=== PATIENT | female | born 1965 | race Caucasian/White ===

== ENCOUNTER 2016-04-16 15:20 | Emergency (ER) | payer MEDICARE ==
[2016-03-06 13:11] VITALS: BMI 62.9
[~2016-04-16 15:20] MED LIST: ACETAMINOPHEN325 MG PO; AMBIEN10 MG PO; AMBIEN5 MG PO; AUGMENTIN 875-11 TAB PO; BACTRIM DS TABL1 TAB PO; BROVANA15 MCG/2 M INH; DITROPAN X5 MG/BOTTL PO; IPRAT-ALBUT 0.5-3 ML INH; K-TAB10 MEQ PO; KLONOPIN1 MG PO; LASIX40 MG PO; MOBIC7.5 MG PO; MORPHINE SULFAT15 M4 PO; MYRBETRIQ; MYRBETRIQ50 MG PO; OXYBUTYNIN CHLOR5 MG PO; PERCOCET 5-3251 TAB PO; PHENERGAN25 M1 PO; PLAVIX75 MG PO; PREDNISONE20 MG PO; PRILOSEC20 MG PO; PROAIR HFA8.5 GM INH; PULMICORT0.25 MG/1 UPD; SEREVENT D50 MCG/DIS INH; SINGULAIR10 MG PO; THEOCHRON300 MG PO; TRAZODONE HCL150 MG PO; TRAZODONE HCL50 MG PO; VENTOLIN HFA18 GM INH; VIBRAMYCIN 100100 MG PO; XOPENEX HFA15 GM INH; ZOLOFT100 MG PO
[2016-04-16 16:58] LABS: BASOPHILS 0.2 % (0.0-2.0); EOSINOPHILS 3.8 % (0-7); HEMATOCRIT 37.4 % (36.0-48.0); HEMOGLOBIN 11.6 g/dL (12-16); IMMATURE GRANULOCYTES 0.3 % (0-5); LYMPHOCYTES 19.8 % (15-50); MCH 26.7 pg (26.0-34.0); MEAN PLATELET VOLUME 9.9 fL (7.4-10.4); MONOCYTES 6.1 % (2-11); NEUTROPHILS 69.8 % (40-80); RBC 4.35 10x6/uL (4.00-5.40); RDW 14.7 % (11.5-14.5); WBC 6.6 10x3/uL (4.8-10.8)
[2016-04-16 16:59] LABS: PLATELET COUNT 160 10x3/uL (130-400)
[2016-04-16 17:15] LABS: ALBUMIN 2.7 g/dL (3.4-5.0); ALKALINE PHOSPHATASE 79 U/L (46-116); ALT (SGPT) 25 U/L (10-68); BILIRUBIN - TOTAL 0.18 mg/dL (0.2-1.3); CALC OSMOLALITY 284 mosm/kg (275-300); CALCIUM 8.6 mg/dL (8.5-10.1); CARBON DIOXIDE 30.1 mmol/L (21.0-32.0); CHLORIDE - SERUM 108 mmol/L (98-107); CREATININE - SERUM 0.7 mg/dL (0.6-1.3); GLUCOSE 87 mg/dL (74-106); POTASSIUM - SERUM 4.4 mmol/L (3.5-5.1); PROTEIN - SERUM 5.8 g/dL (6.4-8.2); SODIUM 144 mmol/L (136-145); UREA NITROGEN 10 mg/dL (7-18); eGFR NON AFRICAN AMERICAN > 90 mL/min (90-120)
== END 2016-04-16 18:00 | disposition home or self-care (01) ==
LOC: D.ER 15:20
PROVIDERS: Emergency Medicine
DX: J45.901 Unspecified asthma with (acute) exacerbation (principal); J44.9 Chronic obstructive pulmonary disease, unspecified; Z86.73 Personal history of transient ischemic attack (TIA), and cerebral infarction without residual deficits; G25.81 Restless legs syndrome; F17.200 Nicotine dependence, unspecified, uncomplicated

== ENCOUNTER 2016-05-12 03:45 | Emergency (ER) | payer MEDICARE ==
[2016-03-06 13:11] VITALS: BMI 62.9
[2016-05-12 05:11] LABS: BASOPHILS 0.1 % (0.0-2.0); EOSINOPHILS 0.1 % (0-7); HEMATOCRIT 43.1 % (36.0-48.0); HEMOGLOBIN 13.3 g/dL (12-16); IMMATURE GRANULOCYTES 0.3 % (0-5); LYMPHOCYTES 12.5 % (15-50); MCH 26.7 pg (26.0-34.0); MCHC 30.9 g/dL (31.0-37.0); MCV 86.5 fL (80.0-100.0); MEAN PLATELET VOLUME 10.7 fL (7.4-10.4); MONOCYTES 2.9 % (2-11); NEUTROPHILS 84.1 % (40-80); RBC 4.98 10x6/uL (4.00-5.40); RDW 14.4 % (11.5-14.5); WBC 7.1 10x3/uL (4.8-10.8)
[2016-05-12 05:19] LABS: PLATELET COUNT 213 10x3/uL (130-400)
[2016-05-12 05:27] LABS: ALBUMIN 3.5 g/dL (3.4-5.0); ALKALINE PHOSPHATASE 101 U/L (46-116); ALT (SGPT) 28 U/L (10-68); CALC OSMOLALITY 286 mosm/kg (275-300); CALCIUM 8.6 mg/dL (8.5-10.1); CARBON DIOXIDE 28.8 mmol/L (21.0-32.0); CHLORIDE - SERUM 104 mmol/L (98-107); CREATININE - SERUM 0.8 mg/dL (0.6-1.3); POTASSIUM - SERUM 4.4 mmol/L (3.5-5.1); PROTEIN - SERUM 7.1 g/dL (6.4-8.2); SODIUM 143 mmol/L (136-145); UREA NITROGEN 13 mg/dL (7-18); eGFR NON AFRICAN AMERICAN 80 mL/min (90-120)
[2016-05-12 05:36] LABS: CREATINE KINASE 46 UL (21-215); MAGNESIUM - SERUM 1.9 mg/dL (1.8-2.4); PRO BNP 623 pg/mL (0-125); TROPONIN-I < 0.017 ng/mL (0.000-0.060)
[2016-05-12 05:37] LABS: GLUCOSE 136 mg/dL (74-106)
[2016-05-12] MEDS ORDERED: K-TAB10 MEQ PO (19:26)
[2016-05-12] MEDS ORDERED: MOBIC7.5 MG PO (19:31)
== END 2016-05-12 07:55 | disposition home or self-care (01) ==
LOC: D.ER 03:45
PROVIDERS: Emergency Medicine
DX: R06.00 Dyspnea, unspecified (principal); J45.901 Unspecified asthma with (acute) exacerbation; I50.9 Heart failure, unspecified; J18.9 Pneumonia, unspecified organism; J44.9 Chronic obstructive pulmonary disease, unspecified; Z86.73 Personal history of transient ischemic attack (TIA), and cerebral infarction without residual deficits

== ENCOUNTER 2016-05-12 19:11 | Inpatient (IN) | payer MEDICARE ==
[~2016-05-12] VITALS: Ht 162.6 cm; Wt 155.9 kg
[2016-05-12] MEDS ORDERED: K-TAB10 MEQ PO (19:26)
[2016-05-12] MEDS ORDERED: MOBIC7.5 MG PO (19:31)
[2016-05-12 20:00] VITALS: BP 144/84
--- NOTE | 2016-05-12 21:18 | NUR ---
20 GAUGE PIV SITED TO RIGHT UPPER CHEST BY STUNDENT NURSE WITH THE SUPERVISION OF Ciro STALLINGS RN.
--- NOTE | 2016-05-12 21:53 | NUR ---
ENTERED ROOM TO PLACE CHAUDHRY CATH, PT STATED THAT SHE WAS BUSY RIGHT NOW FEEDING HER SON AND ASKED IF WE COULD COME BACK LATER.
--- NOTE | 2016-05-12 22:49 | NUR ---
CHAUDHRY CATH PLACED USING STERILE TECHNIQUE, PT TOLERATED WELL, PT ASKING FOR OXYCODONE, INFORMED HER THAT I DONT HAVE AND ORDER FOR HER PAIN MEDS BUT WILL CALL AND SEEE IF I CAN THEM ORDERED.
[2016-05-13] VITALS: BP 159/90
--- NOTE | 2016-05-13 00:35 | NUR ---
SITTING UP IN WC AT BED SIDE, PT DENIES NEEDS, BED LOW, CL IN REACH.
[2016-05-13 04:09] VITALS: BP 159/90; BMI 63.8
--- NOTE | 2016-05-13 04:19 | NUR ---
PT SITTING UP IN BED NO DISTRESS OBSERVED IV STARTED IN RIGHT UPPER ARM 20G ONE STICK RESPERATIOSN EVEN AND UNLABORED ON ROOM AIR CALL LIGHT IN REACH SRX2 BED LOW AND LOCKED
[2016-05-13 07:58] VITALS: BP 119/69
--- NOTE | 2016-05-13 08:15 | NUR ---
PT UP IN WHEELCHAIR IN ROOM NO PROBLEMS WILL MONITER
--- NOTE | 2016-05-13 09:41 | NUR ---
UP IN W/C. FAMILY AT BS. CALL LIGHT IN REACH. WILL CONT. PLAN OF CARE.
[2016-05-13 12:18] VITALS: BP 149/85
--- NOTE | 2016-05-13 14:38 | NUR ---
RATIONALE FOR SCD'S EXPLAINED. REFUSING SCD'S AT THIS TIME.
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
[2016-05-13 16:16] VITALS: BP 129/80
--- NOTE | 2016-05-13 16:59 | NUR ---
PT UP IN WHEELCHAIR IN ROOM NO PROBLEMS CHILDREN IN ROOM WITH PT WILL MONITER
--- NOTE | 2016-05-13 19:30 | NUR ---
Received patient sitting at bedside having respiratory nebulizer treatment. Both sons in room with her. Is alert and oriented x 4. Denies any pain or discomfort at this time, does have infrequent dry harsh cough. Miller catheter draining well. Oxygen will be resumed @2L/min following Resp Tx.
[2016-05-13 20:02] VITALS: BP 148/85
[2016-05-14 01:39] VITALS: BP 128/59
--- NOTE | 2016-05-14 03:20 | NUR ---
Has not been wearing oxygen most of the evening. Pulse ox checked on room air = 94% and 93%. Miller catheter draining well, stat lock reattached, aslightly shallow breathing noted. Sleeping at this time.
--- NOTE | 2016-05-14 04:16 | NUR ---
Reviewed telemetry readings with Burner Technician, patient has been in SR with PVCs and PACs, HR currently is 96/min. Slept fairly well.
[2016-05-14 04:37] VITALS: BP 138/70
[2016-05-14 05:58] LABS: BASOPHILS 0.1 % (0.0-2.0); EOSINOPHILS 5.3 % (0-7); HEMATOCRIT 41.8 % (36.0-48.0); HEMOGLOBIN 12.9 g/dL (12-16); IMMATURE GRANULOCYTES 0.1 % (0-5); MCH 26.5 pg (26.0-34.0); MCHC 30.9 g/dL (31.0-37.0); MCV 85.8 fL (80.0-100.0); MEAN PLATELET VOLUME 10.5 fL (7.4-10.4); MONOCYTES 8.4 % (2-11); NEUTROPHILS 68.1 % (40-80); PLATELET COUNT 190 10x3/uL (130-400); RBC 4.87 10x6/uL (4.00-5.40); RDW 14.4 % (11.5-14.5); WBC 7.8 10x3/uL (4.8-10.8)
[2016-05-14 06:12] LABS: CALC OSMOLALITY 289 mosm/kg (275-300); CALCIUM 8.3 mg/dL (8.5-10.1); CARBON DIOXIDE 34.5 mmol/L (21.0-32.0); CHLORIDE - SERUM 104 mmol/L (98-107); CREATININE - SERUM 0.8 mg/dL (0.6-1.3); GLUCOSE 103 mg/dL (74-106); POTASSIUM - SERUM 3.1 mmol/L (3.5-5.1); SODIUM 144 mmol/L (136-145); UREA NITROGEN 21 mg/dL (7-18); eGFR NON AFRICAN AMERICAN 80 mL/min (90-120)
--- NOTE | 2016-05-14 06:31 | NUR ---
Reviewed lab results, K+ low 3.1, given potassium elixir supplement.
--- NOTE | 2016-05-14 07:51 | NUR ---
PATIENT AWAKE/ ALERT/ORIENT X4. CALL LIGHT WITHIN REACH. REQUESTING PAIN MEDICATION FOR HIP PAIN.
[2016-05-14 08:00] VITALS: BP 99/41
--- NOTE | 2016-05-14 09:46 | NUR ---
RESTS WITH EYES CLOSED. CALL LIGHT IN REACH. WILL CONT. PLAN OF CARE.
[2016-05-14 10:06] VITALS: Ht 162.6 cm; Wt 155.9 kg
--- NOTE | 2016-05-14 11:00 | NUR ---
BLADDER TRAINING STARTED ON THIS PATIENT. CHAUDHRY CATH CLAMPED.
[2016-05-14 12:09] VITALS: BP 132/69
--- NOTE | 2016-05-14 14:00 | NUR ---
PATIENT STATES THAT SHE DOES NOT HAVE THE URGE TO URINATE. CHAUDHRY CATH UNCLAMPED. PATIENT ON TELEMTRY. RUNNING 85 SR.
--- NOTE | 2016-05-14 17:45 | NUR ---
CHAUDHRY CATH CLAMPED. DOES NOT WANT CHAUDHRY UNCLAMPED AT THIS TIME. PATIENT REQUESTED THAT CHAUDHRY CATH BE LEFT IN AT THIS TIME. STATES SHE HAS NOT HAD THE URGE TO URINATE
[2016-05-14 17:46] VITALS: BP 176/91
[2016-05-14 19:49] VITALS: BP 127/86
--- NOTE | 2016-05-14 20:00 | NUR ---
RECEIVED PT LYING IN BED ON RIGHT SIDE TALKING ON PHONE. PT AAOX4. RESPIRATIONS EVEN, NON-LABORED. REQUESTS ICE WATER. ASSESSMENT COMPLETED. PT DENIES FURTHER NEEDS AT THIS TIME. BED LOW. PHONE AND CALL LIGHT IN REACH. SRX2.
--- NOTE | 2016-05-14 21:13 | NUR ---
PM MEDS GIVEN. PT DENIES NEEDS AT THIS TIME. BED LOW. PHONE AND CALL LIGHT IN REACH. SRX2.
--- NOTE | 2016-05-14 22:13 | NUR ---
PT REQUESTED AMBIEN TO HELP HER SLEEP. ADMINISTERED AMBIEN 10 MG PO. PT DENIES OTHER NEEDS AT THIS TIME. BED LOW. PHONE AND CALL LIGHT IN REACH. SRX2.
--- NOTE | 2016-05-14 22:41 | NUR ---
PT C/O S/L TO RIGHT SHOULDER BURNING WHEN FLUSHED. REMOVED IV. CATHETER TIP INTACT. PT DENIES OTHER NEEDS. BED LOW. PHONE AND CALL LIGHT IN REACH. SRX2.
--- NOTE | 2016-05-14 23:28 | NUR ---
IV TO LEFT SHOULDER STARTED PER FRANTZ BREAUX. FLUSHED AND S/L. PT DENIES OTHER NEEDS. BED LOW. PHONE AND CALL LIGHT IN REACH. SRX2.
--- NOTE | 2016-05-14 23:32 | NUR ---
IV TO RIGHT SHOULDER INFILTRATED. 22 GAUGE TO LEFT SHOULDER X 2 STICKS.
[2016-05-15 00:42] VITALS: BP 125/77
--- NOTE | 2016-05-15 00:42 | NUR ---
PT SITTING UP IN WHEELCHAIR. ADMINISTERED SOLU-MEDROL IVP. PT DENIES NEEDS.
--- NOTE | 2016-05-15 00:56 | NUR ---
PT REQUESTS SANDWICH TRAY. DENIES OTHER NEEDS.
--- NOTE | 2016-05-15 02:08 | NUR ---
1350 CC YASMEEN URINE EMPTIED FROM CHAUDHRY BAG. PT DENIES NEEDS AT THIS TIME. BED LOW. PHONE AND CALL LIGHT IN REACH. SRX2.
--- NOTE | 2016-05-15 02:20 | NUR ---
CLAMPED CHAUDHRY AT THIS TIME. INSTRUCTED PT TO PRESS CALL LIGHT IF SHE FELT THE URGE TO GO.
--- NOTE | 2016-05-15 04:01 | NUR ---
PT RESTING QUIETLY IN BED. DENIES NEEDS AT THIS TIME. BED LOW. PHONE AND CALL LIGHT IN REACH. SRX2.
[2016-05-15 04:47] VITALS: BP 125/54
--- NOTE | 2016-05-15 05:35 | NUR ---
CHAUDHRY CATHETER STILL CLAMPED AT THIS TIME. PERFORMED BLADDER SCAN. 130 ML URINE VOLUME ON SCAN. UNCLAMPED CHAUDHRY AT THIS TIME. DRAINING.
--- NOTE | 2016-05-15 06:12 | NUR ---
500 CC YASMEEN URINE EMPTIED FROM CHAUDHRY BAG AT THIS TIME.
[2016-05-15 07:04] LABS: ANION GAP 10.2 mmol/L (8-16); CALCIUM 9.3 mg/dL (8.5-10.1); CARBON DIOXIDE 32.3 mmol/L (21.0-32.0); CREATININE - SERUM 0.9 mg/dL (0.6-1.3); POTASSIUM - SERUM 4.5 mmol/L (3.5-5.1)
[2016-05-15 07:07] LABS: BASOPHILS 0.1 % (0.0-2.0); EOSINOPHILS 0 % (0-7); HEMATOCRIT 44.1 % (36.0-48.0); HEMOGLOBIN 13.8 g/dL (12-16); IMMATURE GRANULOCYTES 0.2 % (0-5); LYMPHOCYTES 7.9 % (15-50); MCH 27.1 pg (26.0-34.0); MCHC 31.3 g/dL (31.0-37.0); MCV 86.6 fL (80.0-100.0); MEAN PLATELET VOLUME 10.4 fL (7.4-10.4); MONOCYTES 1.2 % (2-11); NEUTROPHILS 90.6 % (40-80); PLATELET COUNT 203 10x3/uL (130-400); RBC 5.09 10x6/uL (4.00-5.40); RDW 14.5 % (11.5-14.5)
--- NOTE | 2016-05-15 07:38 | NUR ---
AM ROUNDING- PT LAYING IN BED ON LEFT SIDE WITH EYES CLOSED RESTING. ON EP, WILL CHECK AM LABS AND TREAT PER PROTOCOL. ON MONITOR SHOWING SR, HR 92. ON O2 AT 2L VIA NC. CHAUDHRY CATHETER WITH LIGHT YELLOW URINE SEEN. IV SEEN TO LEFT SHOULDER, UPPER ARM AREA THAT IS CURRENTLY SALINE LOCKED AND PATENT. PT HAS WHEELCHAIR AT BEDSIDE THAT SHE DOES USE BECAUSE SHE IS WEAK PER REPORT. NO NEED AT CURRENT TIME. WILL CONTINUE TO MONITOR.
[2016-05-15 08:22] VITALS: BP 125/54
[2016-05-15 11:00] VITALS: BP 110/47
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
[2016-05-15] MEDS ORDERED: SEREVENT D50 MCG/DIS INH (15:23)
[2016-05-15] MEDS ORDERED: LASIX40 MG PO (15:28)
[2016-05-15] MEDS ORDERED: DOXYCYCLINE HY100 M2 PO (15:33)
[2016-05-15 16:00] VITALS: BP 171/81
--- NOTE | 2016-05-15 16:47 | NUR ---
Patient Name: CAMELIA WILLAMS Encounter No: [id number] : 1965 Primary Insurance: MEDICARE A & B Anticipated DC Date: 05-15-2016 Planned Disposition: Home DCP follow-up note: CM MET WITH PT IN ROOM TO DISCUSS DISCHARGE NEEDS AND PLANNING. CM DISCUSSED AVAILABILITY OF HOME HEALTH, REHAB SERVICES AND MEDICAL EQUIPMENT. PT DENIES DISCHARGE NEEDS. PT DRIVING HOME AT DISCHARGE. IMPORTANT MESSAGE FROM MEDICARE PROVIDED AND EXPLAINED. Enrique Cerda, CASE MANAGEMENT
--- NOTE | 2016-05-15 17:31 | NUR ---
CHAUDHRY CATHETER REMOVED ORDERED BY CAMELIA CAICEDO NP. 10CC PULLED OUT OF BALLOON WITH SYRINGE AND CHAUDHRY REMOVED. TOLERATED WELL. INSTRUCTED PT TO CALL FOR ASSISTANCE IF NEEDING HELP TO THE BATHROOM, PT AGREED.
--- NOTE | 2016-05-15 17:34 | NUR ---
1400- DR. GAGE ON UNIT. INFORMED HIM OF PTS IV BURNING PT AND THAT IT WAS PTS 4-5 IV CATHETER SINCE BEING ADMITTED. DR. GAGE STATED HE WOULD SWITCH PTS IV MEDICAION TO PO. CAMELIA CAICEDO NP SAID SHE WAS CHANGING LAXIS TO PO WE SPEAK. WILL CONTINUE TO MONITOR AND REMOVE IV CATHETER TO LEFT SHOULDER AREA.
--- NOTE | 2016-05-15 19:30 | NUR ---
RESUMED CARE OF PT, 02-2L, [id number], BED IS LOW, SRX2,DENIES ANY NEEDS, CALL LIGHT IN REACH, WILL CONTINUE TO MONITOR
[2016-05-15 19:41] VITALS: BP 139/66
--- NOTE | 2016-05-15 19:42 | NUR ---
SURGERY TECH AT BEDSIDE TO OBTAIN VITALS, CALL LIGHT IN REACH. WILL CONTINUE WITH PLAN OF CARE.
[2016-05-16 01:20] VITALS: BP 134/95
--- NOTE | 2016-05-16 03:43 | NUR ---
PT SLEEPING, BED IS LOW, SRX2, CALL LIGHT IN REACH, WILL CONTINUE TO MONITOR
[2016-05-16 04:33] VITALS: BP 162/83
[2016-05-16 04:41] LABS: BASOPHILS 0.2 % (0.0-2.0); EOSINOPHILS 0.2 % (0-7); HEMATOCRIT 43.3 % (36.0-48.0); HEMOGLOBIN 13.4 g/dL (12-16); IMMATURE GRANULOCYTES 0.3 % (0-5); LYMPHOCYTES 15.7 % (15-50); MCH 27.1 pg (26.0-34.0); MCHC 30.9 g/dL (31.0-37.0); MCV 87.5 fL (80.0-100.0); MEAN PLATELET VOLUME 10.3 fL (7.4-10.4); NEUTROPHILS 76.6 % (40-80); PLATELET COUNT 218 10x3/uL (130-400); RBC 4.95 10x6/uL (4.00-5.40); RDW 14.8 % (11.5-14.5); WBC 10.5 10x3/uL (4.8-10.8)
[2016-05-16 04:56] LABS: CALC OSMOLALITY 287 mosm/kg (275-300); CALCIUM 9.1 mg/dL (8.5-10.1); CARBON DIOXIDE 34.5 mmol/L (21.0-32.0); CHLORIDE - SERUM 105 mmol/L (98-107); CREATININE - SERUM 0.8 mg/dL (0.6-1.3); POTASSIUM - SERUM 4.2 mmol/L (3.5-5.1); SODIUM 143 mmol/L (136-145); UREA NITROGEN 22 mg/dL (7-18); eGFR NON AFRICAN AMERICAN 80 mL/min (90-120)
[2016-05-16 04:59] LABS: GLUCOSE 104 mg/dL (74-106)
--- NOTE | 2016-05-16 07:22 | NUR ---
AM ROUNDING- PT LAYING IN BED ON LEFT SIDE WITH EYES CLOSED RESTING, RESPIRATORY IN ROOM ABOUT TO DO A BREATHING TX. ON MONITOR SHOWING SB, HR 54. ON 02 AT 2L VIA NC. NO IV ACCESS, DR. GAGE IS AWARE. ON EP. WILL CHECK AM LABS AND TX PER PROTOCOL AND CONTINUE TO MONITOR.
[2016-05-16 08:01] VITALS: BP 131/71
[2016-05-16 11:46] VITALS: BP 137/70
[2016-05-16 15:56] VITALS: BP 133/73
--- NOTE | 2016-05-16 18:53 | NUR ---
PT CURRENTLY IN SHOWER. NO NEED AT CURRENT TIME. WILL CONTINUE TO MONITOR.
[2016-05-16 20:20] VITALS: BP 142/88
[2016-05-17 00:15] VITALS: BP 123/77
[2016-05-17 04:20] VITALS: BP 138/73
[2016-05-17 05:33] LABS: BASOPHILS 0.1 % (0.0-2.0); EOSINOPHILS 0.2 % (0-7); HEMATOCRIT 44.8 % (36.0-48.0); HEMOGLOBIN 13.9 g/dL (12-16); IMMATURE GRANULOCYTES 0.3 % (0-5); LYMPHOCYTES 8.6 % (15-50); MCV 87.2 fL (80.0-100.0); MEAN PLATELET VOLUME 10.5 fL (7.4-10.4); NEUTROPHILS 87.8 % (40-80); PLATELET COUNT 209 10x3/uL (130-400); RBC 5.14 10x6/uL (4.00-5.40); RDW 14.6 % (11.5-14.5); WBC 10.3 10x3/uL (4.8-10.8)
[2016-05-17 05:52] LABS: ANION GAP 8.4 mmol/L (8-16); CALCIUM 9.1 mg/dL (8.5-10.1); CARBON DIOXIDE 35.8 mmol/L (21.0-32.0); MAGNESIUM - SERUM 2.2 mg/dL (1.8-2.4); PHOSPHOROUS 5.4 mg/dL (2.5-4.9)
[2016-05-17 05:53] LABS: CREATININE - SERUM 1.1 mg/dL (0.6-1.3); POTASSIUM - SERUM 5.2 mmol/L (3.5-5.1)
[2016-05-17 08:39] VITALS: BP 117/54
--- NOTE | 2016-05-17 09:25 | NUR ---
UP TO W/C WITH CALL LIGHT IN REACH. TELEMETRY SR. CALL LIGHT IN REACH. WILL CONT. PLAN OF CARE.
[2016-05-17 12:22] VITALS: BP 133/87
[2016-05-17 16:14] VITALS: BP 133/57
--- NOTE | 2016-05-17 19:17 | NUR ---
RESUMED CARE OF PT, PT IN BED TALKING ON PHONE, SAID IV IS HURTING, CHECKED IV INFILTERATED, WILL SEE IF ADÁN CAN RESTART, [id number], DENIES ANY OTHER NEEDS AT THIS TIME, CALL LIGHT IN REACH, WILL CONTINUE TO MONITOR
[2016-05-17 20:02] VITALS: BP 149/49
--- NOTE | 2016-05-17 21:41 | NUR ---
PT LAYING IN BED, WATCHING TV. NO NEEDS OR C/O VOICED. WILL CONT TO MONITOR.
[2016-05-18 00:14] VITALS: BP 109/48
--- NOTE | 2016-05-18 00:32 | NUR ---
SLEEPING, SRX2, BED IS LOW, CALL LIGHT IN REACH
[2016-05-18 04:13] VITALS: BP 115/52
[2016-05-18 05:43] LABS: BASOPHILS 0.2 % (0.0-2.0); EOSINOPHILS 0 % (0-7); HEMOGLOBIN 13.8 g/dL (12-16); IMMATURE GRANULOCYTES 0.3 % (0-5); LYMPHOCYTES 9.4 % (15-50); MCH 27.2 pg (26.0-34.0); MCHC 31.4 g/dL (31.0-37.0); MCV 86.6 fL (80.0-100.0); MEAN PLATELET VOLUME 10.8 fL (7.4-10.4); MONOCYTES 3.5 % (2-11); NEUTROPHILS 86.6 % (40-80); PLATELET COUNT 236 10x3/uL (130-400); RBC 5.08 10x6/uL (4.00-5.40); RDW 14.4 % (11.5-14.5); WBC 11.1 10x3/uL (4.8-10.8)
[2016-05-18 06:00] LABS: ANION GAP 7.9 mmol/L (8-16); CALCIUM 9.3 mg/dL (8.5-10.1); CREATININE - SERUM 0.9 mg/dL (0.6-1.3); POTASSIUM - SERUM 4.9 mmol/L (3.5-5.1)
[2016-05-18 08:00] VITALS: BP 119/56
--- NOTE | 2016-05-18 10:37 | NUR ---
TELEMETRY SR. RESTS WITH EYES CLOSED. CALL LIGHT IN REACH. WILL CONT. PLAN OF CARE.
[2016-05-18 11:53] VITALS: BP 122/47
[2016-05-18 15:57] VITALS: BP 136/69
--- NOTE | 2016-05-18 19:30 | NUR ---
ASSESSMENT COMPLETE. DENIES NEED AT THIS TIME. SITING UP IN WHEELCHAIR VISITING WITH FAMILY MEMBERSLEFT FA IV SITE W/O R/S NOTED. TELEMETRY IN PLACE SHOWING HR SR.SR UP X2. C/L OM REACH. CONTINUE TO MOMITOR/
[2016-05-18 20:36] VITALS: BP 140/78
[2016-05-19 01:24] VITALS: BP 141/90
[2016-05-19 06:26] VITALS: BP 132/80
--- NOTE | 2016-05-19 07:35 | NUR ---
ON EP, NO LABS OREDERED THIS AM, DONE. IN RESTROOM, STATES THAT SHE IS "SICK FEELING". NO IV ACCESS, WILL SEE IF VASCULAR NURSE CAN GET ONE I SEE NOTHING TO STICK. ON HEART MONITOR SHOWING ST, HR 111. PATIENT GETS AROUND IN HER ELECTRIC WHEELCHAIR. WILL CONTINUE TO MONITOR.
[2016-05-19 08:19] LABS: MAGNESIUM - SERUM 2.2 mg/dL (1.8-2.4); PHOSPHOROUS 5.4 mg/dL (2.5-4.9); POTASSIUM - SERUM 3.6 mmol/L (3.5-5.1)
--- NOTE | 2016-05-19 08:27 | NUR ---
IV access-22 gauge inserted in right hand for saline lock. Maria De Jesus Manzanares RN
--- NOTE | 2016-05-19 08:36 | NUR ---
EP LAB VALUES ARE WNL. WILL ORDER FOR TOMORROW.
--- NOTE | 2016-05-19 10:05 | NUR ---
Patient Name: CAMELIA WILLAMS Encounter No: [id number] : 1965 Primary Insurance: MEDICARE A & B Anticipated DC Date: 05-16-2016 Planned Disposition: Home DCP follow-up note: CM OBSERVED PT OUT OF HER ROOM AT NURSES STATION; CM SPOKE TO PT AT NURSES STATION; PT REPORTS BEING OUT OF BED AND TRANSFERING TO HER WHEELCHAIR AND MOBILIZING IN HER CHAIR INDEPENDENTLY. CM DISCUSSED AVAILABILITY OF HOME HEALTH, REHAB SERVICES AND MEDICAL EQUIPMENT. PT DENIES DISCHARGE NEEDS. PT DRIVING HERSELF HOME AT DISCHARGE. IMPORTANT MESSAGE FROM MEDICARE PROVIDED AND EXPLAINED. Enrique Cerda, CASE MANAGEMENT
--- NOTE | 2016-05-19 10:16 | NUR ---
PATIENT QUESTIONING ME WHY URINE NEEDED TO BE COLLECTED, STATES, "DID SOMETHING COME BACK WHERE YOU NEED TO CHECK IT AGAIN"?. I TOLD HER NO AND SHOWED HER ON COMPUTER SCREEN THAT WE NEEDED TO COLLECT ONE. STATES, "OKAY" AND SHE WILL LET ME KNOW WHEN THIS IS READY TO COLLECT.
[2016-05-19 11:10] VITALS: BP 155/89
[2016-05-19] MEDS ORDERED: OMNICEF300 MG PO (13:57)
--- NOTE | 2016-05-19 14:52 | NUR ---
WHILE MAKING ROUNDS, PATIENT LAYING ON LAEFT SIDE COMPLAINTS OF "DRY HEAVING". EMPTY EMESIS BAG ON BED WITH PATIENT. PHENERGAN ORAL TAB GIVEN REQUESTED. EMPTY LUNCH TRAY ON BEDSIDE TABLE. WILL CONTINUE TO MONITOR.
[2016-05-19] MEDS ORDERED: LASIX40 MG PO (14:53)
--- NOTE | 2016-05-19 15:17 | NUR ---
VERBAL AND WRITTEN DISCHARGE INSTRUCTIONS GIVEN TO PATIENT. INFORMED PATIENT ON HER PHENERGAN THAT I JUST GAVE IT TO HER AT 3 PM AND THAT SHE CAN TAKE HER HOME DOSE 4 HOURS LATER IF NEEDED. PATIENT SAID THAT SHE DID NOT HAVE ANY AT HOME BUT "I'M GOOD, I DON'T NEED ANY". ASKED THAT SHE GET DRESSED AND THEN I WILL TAKE OUT THE SALINE LOCK.
--- NOTE | 2016-05-19 15:53 | NUR ---
SALINE LOCK REMOVED WITH CATH TIP INTACT. PATIENT IS DRESSED AND FINISHING PACKING UP. WILL USE CALL LIGHT WHEN READY TO GO
--- NOTE | 2016-05-19 16:10 | NUR ---
DISCHARGED HOME VIA WHEELCHAIR.
--- NOTE | 2016-05-23 08:46 | EC ---
PATIENT:CAMELIA WILLAMS DATE OF SERVICE: 05/13/16 SEX: F MEDICAL RECORD: [id number] DATE OF : [birth year] LOCATION:D.M2 D.211 AGE OF PATIENT: 50 ADMISSION DATE: 05/13/16 REFERRING PHYSICIAN: INTERPRETING PHYSICIAN: CHELSI LEVINE MD ECHOCARDIOGRAM REPORT ECHO CHARGES 4 ECHO COMPLETE CLINICAL DIAGNOSIS: CHF ECHOCARDIOGRAPHIC MEASUREMENTS (adult normal given) AC root (d.<3.7cm) 3.3 LV Septum d (<1.2 cm> 1.2 Valve Excursion 1.8 LV Septum (systole) 1.5 Left Atria (s.<4.0cm> 3.6 LVPW d(<1.2cm) 1.4 RV (d.<2.3cm) 3.1 LVPW (sytole) 1.6 LV diastole(<5.6CM) 5.9 MV E-F(>70mm/sec) LV systole 4.2 LVOT Diameter 2.0 MV exc.(>10mm) Est.ejection fraction (50-75%) Pericardial Effusion N DOPPLER: LVIT A 85.0 E 73.0 LA RVSP LVOT 140 AOP1/2T Asc. Ao 184 RVOT 109 RA PA 146 AV Gradient Peak 13.61 AV Mean 7.25 AV Area 2.6 MV Gradient Peak 7.8 MV Mean 1.91 MV Area COMMENTS: Head Still Operator: Bala AGUILA Finishing Technician:1 Dr. Levine TAPE# PACS DATE OF SERVICE: 05/13/2016 Echocardiogram FINDINGS: 1. Left ventricular chamber size is within normal limits. Left ventricular systolic function is normal. Overall ejection fraction 55%. 2. Left atrium, right atrium, and right ventricular chamber sizes are within normal limits. 3. Left atrium measures 3.6 cm. 4. Valvular structures have normal structure and motion. ECHOCARDIOGRAM REPORT [id number] CAMELIA WILLAMS 5. Doppler interrogation reveals no significant valvular insufficiency or stenosis. 6. No evidence of pericardial effusion or left ventricular thrombus. TRANSINT:[id number] Voice Confirmation ID: [id number] DOCUMENT ID: [id number] CHELSI LEVINE MD at 0846 CC: [id number] DICTATION DATE: 05/13/16 1034 OPERATOR PREFINISH: 05/13/16 [id number] DIS IN 05/19/16 [facility] [address] [place] [address]
== END 2016-05-19 16:11 | disposition home or self-care (01) | DRG 291 ==
LOC: OBSVTIME 19:11 → D.M2 19:11
PROVIDERS: Family Medicine; ADMIT Family Medicine
DX: I50.33 Acute on chronic diastolic (congestive) heart failure (principal); J15.6 Pneumonia due to other Gram-negative bacteria; J45.901 Unspecified asthma with (acute) exacerbation; J44.1 Chronic obstructive pulmonary disease with (acute) exacerbation; Z68.43 Body mass index [BMI] 50.0-59.9, adult; J44.0 Chronic obstructive pulmonary disease with (acute) lower respiratory infection; Z86.73 Personal history of transient ischemic attack (TIA), and cerebral infarction without residual deficits; E66.01 Morbid (severe) obesity due to excess calories; J20.9 Acute bronchitis, unspecified; E87.6 Hypokalemia; G47.33 Obstructive sleep apnea (adult) (pediatric); Z87.891 Personal history of nicotine dependence

== ENCOUNTER 2016-06-23 21:53 | Emergency (ER) | payer MEDICARE ==
[2016-05-14 10:06] VITALS: BMI 60.6
[~2016-06-23 21:53] MED LIST changes: +DOXYCYCLINE HY100 M2 PO; +OMNICEF300 MG PO
[2016-06-24 01:15] LABS: HEMATOCRIT 42.4 % (36.0-48.0); HEMOGLOBIN 13.4 g/dL (12-16); LYMPHOCYTES 13.2 % (15-50); MCH 26.5 pg (26.0-34.0); MCHC 31.6 g/dL (31.0-37.0); MCV 83.8 fL (80.0-100.0); MEAN PLATELET VOLUME 9.5 fL (7.4-10.4); NEUTROPHILS 81.6 % (40-80); PLATELET COUNT 231 10x3/uL (130-400); RBC 5.06 10x6/uL (4.00-5.40); RDW 13.8 % (11.5-14.5); WBC 8.7 10x3/uL (4.8-10.8)
[2016-06-24 01:21] LABS: ALBUMIN 3.2 g/dL (3.4-5.0); ALKALINE PHOSPHATASE 99 U/L (46-116); ALT (SGPT) 19 U/L (10-68); CALC OSMOLALITY 281 mosm/kg (275-300); CALCIUM 8.6 mg/dL (8.5-10.1); CARBON DIOXIDE 30.8 mmol/L (21.0-32.0); CHLORIDE - SERUM 104 mmol/L (98-107); CREATININE - SERUM 0.8 mg/dL (0.6-1.3); GLUCOSE 103 mg/dL (74-106); POTASSIUM - SERUM 3.9 mmol/L (3.5-5.1); PROTEIN - SERUM 7.2 g/dL (6.4-8.2); SODIUM 141 mmol/L (136-145); UREA NITROGEN 16 mg/dL (7-18); eGFR NON AFRICAN AMERICAN 80 mL/min (90-120)
[2016-06-24 01:37] LABS: CKMB 0.5 U/L (0.0-3.6); CREATINE KINASE 45 UL (21-215); PRO BNP 234 pg/mL (0-125)
[2016-06-24 01:40] LABS: TROPONIN-I < 0.017 ng/mL (0.000-0.060)
== END 2016-06-24 04:04 | disposition home or self-care (01) ==
LOC: D.ER 21:53
PROVIDERS: Family Medicine
DX: J06.9 Acute upper respiratory infection, unspecified (principal); I50.9 Heart failure, unspecified; J44.9 Chronic obstructive pulmonary disease, unspecified; J45.909 Unspecified asthma, uncomplicated; Z86.73 Personal history of transient ischemic attack (TIA), and cerebral infarction without residual deficits; G25.81 Restless legs syndrome

== ENCOUNTER 2016-09-02 19:02 | Inpatient (IN) | payer MEDICARE ==
[~2016-09-02] VITALS: Ht 162.6 cm; Wt 164.2 kg
[2016-09-02 19:52] LABS: BASOPHILS 0.1 % (0-2); EOSINOPHILS 2.8 % (0-7); HEMATOCRIT 40.7 % (36.0-48.0); HEMOGLOBIN 13.2 g/dL (12-16); IMMATURE GRANULOCYTES 0.4 % (0-5); LYMPHOCYTES 15.5 % (15-50); MCH 27.8 pg (26.0-34.0); MCHC 32.4 g/dL (31.0-37.0); MCV 85.9 fL (80.0-100.0); MEAN PLATELET VOLUME 9.6 fL (7.4-10.4); MONOCYTES 5.4 % (2-11); NEUTROPHILS 75.8 % (40-80); PLATELET COUNT 197 10x3/uL (130-400); RBC 4.74 10x6/uL (4.00-5.40); RDW 14.3 % (11.5-14.5); WBC 7.8 10x3/uL (4.8-10.8)
[2016-09-02 20:11] LABS: ALKALINE PHOSPHATASE 97 U/L (46-116); ALT (SGPT) 20 U/L (10-68); BILIRUBIN - TOTAL 0.21 mg/dL (0.2-1.3); CALC OSMOLALITY 274 mosm/kg (275-300); CALCIUM 8.8 mg/dL (8.5-10.1); CARBON DIOXIDE 32.9 mmol/L (21.0-32.0); CHLORIDE - SERUM 102 mmol/L (98-107); CREATININE - SERUM 0.9 mg/dL (0.6-1.3); GLUCOSE 86 mg/dL (74-106); SODIUM 139 mmol/L (136-145); UREA NITROGEN 8 mg/dL (7-18); eGFR NON AFRICAN AMERICAN 70 mL/min (90-120)
[2016-09-02 20:17] LABS: CREATINE KINASE 62 UL (21-215); PRO BNP 432 pg/mL (0-125)
[2016-09-02 20:24] LABS: TROPONIN-I < 0.017 ng/mL (0.000-0.060)
--- NOTE | 2016-09-02 22:05 | NUR ---
RECEIVED PT TO ROOM 2117 ALERT O X3. CHAUDHRY TO GRAVITY PLACED IN ER. ASSESS AND HISTORY COMPLETE. UPDATED MED REC FOR MD REVIEW IN AM. PT DENIES NEEDS OR C/O AT THIS TIME. WILL CONT TO MONITOR. NOTIFIED CARDIOVASCULAR OPERATING ROOM NURSE NEED BUMEX GTT.
[2016-09-02] MEDS ORDERED: MORPHINE SULFAT30 MG PO (23:32)
[2016-09-02 23:34] VITALS: BP 135/60; BMI 64.2
[2016-09-03 00:45] VITALS: BP 146/84
[2016-09-03 05:13] VITALS: BP 107/42
[2016-09-03 05:19] LABS: BASOPHILS 0.2 % (0-2); EOSINOPHILS 4.2 % (0-7); HEMOGLOBIN 13.9 g/dL (12-16); IMMATURE GRANULOCYTES 0.2 % (0-5); LYMPHOCYTES 21.5 % (15-50); MCH 27.4 pg (26.0-34.0); MCHC 31.6 g/dL (31.0-37.0); MCV 86.8 fL (80.0-100.0); MEAN PLATELET VOLUME 10.2 fL (7.4-10.4); MONOCYTES 5.2 % (2-11); NEUTROPHILS 68.7 % (40-80); PLATELET COUNT 210 10x3/uL (130-400); RBC 5.07 10x6/uL (4.00-5.40); RDW 14.6 % (11.5-14.5); WBC 6.4 10x3/uL (4.8-10.8)
[2016-09-03 05:38] LABS: ANION GAP 4.8 mmol/L (8-16); CARBON DIOXIDE 37.3 mmol/L (21.0-32.0); CREATININE - SERUM 0.9 mg/dL (0.6-1.3); POTASSIUM - SERUM 4.1 mmol/L (3.5-5.1)
[2016-09-03 08:41] VITALS: BP 104/50
--- NOTE | 2016-09-03 10:20 | NUR ---
TELEMETRY SB. IV PATENT. CALL LIGHT IN REACH. WILL CONT. PLAN OF CARE.
[2016-09-03 12:46] VITALS: BP 119/47
[2016-09-03 13:55] VITALS: Ht 162.6 cm; Wt 164.2 kg
--- NOTE | 2016-09-03 14:39 | NUR ---
BILAT SCDS APPLYED.
[2016-09-03 16:53] VITALS: BP 111/42
--- NOTE | 2016-09-03 19:36 | NUR ---
RESUMED CARE OF PT, LYING IN BED RESPIRATIONS EVEN AND UNLABORED ON 2LPM VIA NC. 74 SR ON TELEMETRY. LEFT HAND INFUSING BUMEX @ 3.5 CHAUDHRY TO GRAVITY. SEE NURSE ASSESSMENT. CALL LIGHT IN REACH. WILL CONTINUE TO MONITOR.
[2016-09-04] VITALS: BP 134/85
--- NOTE | 2016-09-04 03:44 | NUR ---
FIELD MAP TECHNICIAN AT BEDSIDE TO OBTAIN VITALS, CALL LIGHT IN REACH. WILL CONTINUE WITH PLAN OF CARE.
[2016-09-04 04:00] VITALS: BP 89/32
[2016-09-04 06:01] LABS: BASOPHILS 0.1 % (0-2); HEMOGLOBIN 13.7 g/dL (12-16); IMMATURE GRANULOCYTES 0.1 % (0-5); MCH 27.2 pg (26.0-34.0); MCHC 31.1 g/dL (31.0-37.0); MCV 87.5 fL (80.0-100.0); MEAN PLATELET VOLUME 9.7 fL (7.4-10.4); MONOCYTES 7.8 % (2-11); PLATELET COUNT 201 10x3/uL (130-400); RBC 5.03 10x6/uL (4.00-5.40); RDW 14.6 % (11.5-14.5)
[2016-09-04 06:17] LABS: ANION GAP 8.9 mmol/L (8-16); CALCIUM 8.7 mg/dL (8.5-10.1); CARBON DIOXIDE 39.9 mmol/L (21.0-32.0); CREATININE - SERUM 1.3 mg/dL (0.6-1.3); POTASSIUM - SERUM 4.8 mmol/L (3.5-5.1)
[2016-09-04 07:55] VITALS: BP 103/55
--- NOTE | 2016-09-04 08:04 | NUR ---
ASSESSMENT COMPLETED. UP ON SIDE OF BED. TELEMERTY SHOWS SR. O2 AT 2 L/M PER NC. IV OF BUMEX 3.5 INFUSING TO THE LEFT HAND.CHAUDHRY CATH TO BEDSIDE GRAITY BAG. DENIES ANY NEEDS
--- NOTE | 2016-09-04 10:08 | NUR ---
RESTING IN BED. CHAUDHRY DRAINING WITH CONCENTRATED URINE. REQUESTING MUSCLE RELAXER FOR LEG CRAMPS. MONITOR SHOWS SINUS RAHEEL WITH RATE OF 54
[2016-09-04 11:35] VITALS: BP 118/68
[2016-09-04 15:17] LABS: APPEARANCE CLEAR (CLEAR); BILIRUBIN NEGATIVE (NEGATIVE); COLOR STRAW (YELLOW); GLUCOSE NEGATIVE (NEGATIVE); KETONE NEGATIVE (NEGATIVE); LEUKOCYTE ESTERASE 1+ (NEGATIVE); NITRITE NEGATIVE (NEGATIVE); PROTEIN NEGATIVE (NEGATIVE); SPECIFIC GRAVITY 1.005 (1.005-1.020); UROBILINOGEN NORMAL (NORMAL)
[2016-09-04 15:18] LABS: BACTERIA MODERATE /hpf (NONE SEEN); EPITHELIAL CELLS 0-5 /hpf (0-5)
--- NOTE | 2016-09-04 16:00 | NUR ---
PT UP FOR BATH. IV IS STILL OUT, UNABLE TO TO RESTART. CAMELIA CAICEDO APN NOTIFIED. STATES SHE WILL TALK WITH DR. OPPE
--- NOTE | 2016-09-04 18:15 | NUR ---
NO ORDERS REGARDING IV. 2 CALLS PLACED TO CAMELIA, AWAITING HER TO RECALL
--- NOTE | 2016-09-04 19:42 | NUR ---
RESUMED CARE OF PT, LYING IN BED RESPIRATIONS EVEN ADN UNLABORED ON 2LPM VIA NC. 61 SR ON TELEMETRY. FOELY TO GRAVITY. NO NEEDS VOICED AT THIS TIME. WILL CONTINUE TO MONITOR. SEE NURSE ASSESSMENT. CALL LIGHT IN REACH.
[2016-09-04 20:00] VITALS: BP 105/80
--- NOTE | 2016-09-04 22:02 | NUR ---
22 GAUGE TO RIGHT FOREARM X 1 STICK. BUMEX 2MG GIVEN IVP.
--- NOTE | 2016-09-05 03:05 | NUR ---
CERTIFIED NOVELL ENGINEER AT BEDSIDE TO OBTAIN VITALS, CALL LIGHT IN REACH. WILL CONTINUE WITH PLAN OF CARE.
[2016-09-05 04:00] VITALS: BP 166/61
[2016-09-05 06:02] LABS: BASOPHILS 0.1 % (0-2); EOSINOPHILS 3.8 % (0-7); HEMATOCRIT 43.7 % (36.0-48.0); HEMOGLOBIN 13.7 g/dL (12-16); IMMATURE GRANULOCYTES 0.2 % (0-5); LYMPHOCYTES 21.9 % (15-50); MCH 27.1 pg (26.0-34.0); MCHC 31.4 g/dL (31.0-37.0); MCV 86.4 fL (80.0-100.0); MEAN PLATELET VOLUME 10.3 fL (7.4-10.4); MONOCYTES 7.4 % (2-11); NEUTROPHILS 66.6 % (40-80); PLATELET COUNT 237 10x3/uL (130-400); RBC 5.06 10x6/uL (4.00-5.40); RDW 14.8 % (11.5-14.5)
[2016-09-05 06:21] LABS: WBC 8.8 10x3/uL (4.8-10.8)
[2016-09-05 06:22] LABS: ANION GAP 9.8 mmol/L (8-16); CALCIUM 8.4 mg/dL (8.5-10.1); CARBON DIOXIDE 35.9 mmol/L (21.0-32.0); CREATININE - SERUM 1.6 mg/dL (0.6-1.3); POTASSIUM - SERUM 4.7 mmol/L (3.5-5.1)
[2016-09-05 07:48] VITALS: BP 95/50
--- NOTE | 2016-09-05 08:22 | NUR ---
ASSESSMENT COMPLETED. TELEMERTY SHOWS SB 65. O2 AT 2 LM PER NC. SL TO LEFT FA. CHAUDHRY CATH TO BEDSIDE DRAINAGE BAG. . DENIES ANY NEEDS. CALL LIGHT IN REACH WITH SR UP
[2016-09-05 11:48] VITALS: BP 117/64
--- NOTE | 2016-09-05 12:25 | NUR ---
Nutrition follow-up: Diet: low sodium PO intake 100% of most meals Labs reviewed Wt: 362# RDN following.
--- NOTE | 2016-09-05 13:41 | NUR ---
UP IN WHEELCHAIR. NO NEEDS VOICED. CALL LIGHT IN REACH. TELEMERTY SHOWS SR
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
--- NOTE | 2016-09-05 16:07 | NUR ---
PT DISCHARGED. INSTRUCTIONS GIVEN TO PT. TO PRIVATE CAR PER WHEEL CHAIR.
== END 2016-09-05 16:11 | disposition home or self-care (01) | DRG 291 ==
LOC: D.ER 19:02 → D.M2 20:35
PROVIDERS: Emergency Medicine; ADMIT Family Medicine
DX: I50.33 Acute on chronic diastolic (congestive) heart failure (principal); R53.2 Functional quadriplegia; Z68.43 Body mass index [BMI] 50.0-59.9, adult; J44.9 Chronic obstructive pulmonary disease, unspecified; E66.01 Morbid (severe) obesity due to excess calories; Z86.73 Personal history of transient ischemic attack (TIA), and cerebral infarction without residual deficits

== ENCOUNTER 2016-09-20 21:21 | Emergency (ER) | payer MEDICARE ==
[2016-09-03 13:55] VITALS: BMI 64.0
[~2016-09-20 21:21] MED LIST changes: +MORPHINE SULFAT30 MG PO
[2016-09-20 22:21] LABS: BASOPHILS 0.1 % (0-2); EOSINOPHILS 2.9 % (0-7); HEMATOCRIT 40.5 % (36.0-48.0); HEMOGLOBIN 12.6 g/dL (12-16); IMMATURE GRANULOCYTES 0.3 % (0-5); LYMPHOCYTES 16.2 % (15-50); MCH 27.5 pg (26.0-34.0); MCHC 31.1 g/dL (31.0-37.0); MCV 88.4 fL (80.0-100.0); MONOCYTES 7.3 % (2-11); NEUTROPHILS 73.2 % (40-80); RBC 4.58 10x6/uL (4.00-5.40); RDW 14.7 % (11.5-14.5); WBC 7.1 10x3/uL (4.8-10.8)
[2016-09-20 22:25] LABS: APPEARANCE CLEAR (CLEAR); BILIRUBIN NEGATIVE (NEGATIVE); COLOR YELLOW (YELLOW); GLUCOSE NEGATIVE (NEGATIVE); KETONE NEGATIVE (NEGATIVE); LEUKOCYTE ESTERASE NEGATIVE (NEGATIVE); NITRITE NEGATIVE (NEGATIVE); PLATELET COUNT 187 10x3/uL (130-400); PROTEIN NEGATIVE (NEGATIVE); SPECIFIC GRAVITY 1.015 (1.005-1.020); UROBILINOGEN NORMAL (NORMAL)
[2016-09-20 22:35] LABS: ANION GAP 8.9 mmol/L (8-16); BILIRUBIN - TOTAL 0.25 mg/dL (0.2-1.3); CALCIUM 8.6 mg/dL (8.5-10.1); CARBON DIOXIDE 31.1 mmol/L (21.0-32.0); CREATININE - SERUM 0.9 mg/dL (0.6-1.3); PROTEIN - SERUM 6.9 g/dL (6.4-8.2)
== END 2016-09-21 00:15 | disposition home or self-care (01) ==
LOC: D.ER 21:21
PROVIDERS: Emergency Medicine
DX: M54.16 Radiculopathy, lumbar region (principal); J44.9 Chronic obstructive pulmonary disease, unspecified; I50.9 Heart failure, unspecified; Z86.73 Personal history of transient ischemic attack (TIA), and cerebral infarction without residual deficits

== ENCOUNTER 2016-09-26 19:38 | Emergency (ER) | payer MEDICARE ==
[2016-09-03 13:55] VITALS: BMI 64.0
== END 2016-09-26 22:34 | disposition home or self-care (01) ==
LOC: D.ER 19:38
DX: S50.02XA Contusion of left elbow, initial encounter (principal); S50.01XA Contusion of right elbow, initial encounter; W19.XXXA Unspecified fall, initial encounter; Y93.89 Activity, other specified; Y92.89 Other specified places as the place of occurrence of the external cause; F17.200 Nicotine dependence, unspecified, uncomplicated; I50.9 Heart failure, unspecified; J44.9 Chronic obstructive pulmonary disease, unspecified; Z86.73 Personal history of transient ischemic attack (TIA), and cerebral infarction without residual deficits

== ENCOUNTER 2016-10-27 18:47 | Inpatient (IN) | payer MEDICARE ==
[~2016-10-27] VITALS: Ht 162.6 cm; Wt 154.8 kg
--- NOTE | 2016-10-27 19:05 | NUR ---
RECIEVED PT TO FLOOR FROM ADMISSIONS VIA WHEELCHAIR. PT IS ALERT AND ORIENTED AND ABLE TO VERBALIZE NEEDS. PT USES WHEELCHAIR. PT ON ROOM AIR. VSS. PT STATES PAIN IS 8/10. PT IS ORIENTED TO ROOM AND USE OF CALL LIGHT. NO NEEDS ARE VERBALIZED AT THIS TIME. WILL CONTINUE TO MONITOR. SIDE RAILS ARE UP X 2. BED IS IN LOWEST POSITION. CALL LIGHT IS WITHIN REACH.
[2016-10-27 20:31] LABS: BASOPHILS 0.2 % (0-2); EOSINOPHILS 9.4 % (0-7); HEMATOCRIT 44.4 % (36.0-48.0); HEMOGLOBIN 14.1 g/dL (12-16); IMMATURE GRANULOCYTES 0.2 % (0-5); LYMPHOCYTES 16.6 % (15-50); MCH 27.5 pg (26.0-34.0); MCHC 31.8 g/dL (31.0-37.0); MCV 86.7 fL (80.0-100.0); MEAN PLATELET VOLUME 9.9 fL (7.4-10.4); NEUTROPHILS 65.6 % (40-80); PLATELET COUNT 191 10x3/uL (130-400); RBC 5.12 10x6/uL (4.00-5.40); WBC 6.6 10x3/uL (4.8-10.8)
[2016-10-27 20:52] LABS: ALKALINE PHOSPHATASE 109 U/L (46-116); ALT (SGPT) 21 U/L (10-68); BILIRUBIN - TOTAL 0.25 mg/dL (0.2-1.3); CALC OSMOLALITY 277 mosm/kg (275-300); CALCIUM 8.6 mg/dL (8.5-10.1); CARBON DIOXIDE 33.8 mmol/L (21.0-32.0); CHLORIDE - SERUM 103 mmol/L (98-107); CREATININE - SERUM 0.7 mg/dL (0.6-1.3); GLUCOSE 89 mg/dL (74-106); POTASSIUM - SERUM 3.9 mmol/L (3.5-5.1); PRO BNP 544 pg/mL (0-125); PROTEIN - SERUM 7.1 g/dL (6.4-8.2); SODIUM 141 mmol/L (136-145); UREA NITROGEN 7 mg/dL (7-18); eGFR NON AFRICAN AMERICAN > 90 mL/min (90-120)
--- NOTE | 2016-10-27 22:07 | NUR ---
ADMIT ASSESSMENT COMPLETED. IV STARTED TO LEFT FOREARM BY ICU NURSE. MEDICATION ADMINISTERED PER ORDER. NO NEEDS ARE VOICED. WILL MONITOR. SIDE RAILS X 2. BED LOW. CALL LIGHT IN REACH. SON AT THE BEDSIDE.
[2016-10-28] VITALS (7 sets, daily range): BP systolic 98–153; BP diastolic 45–99; Ht 162.6 cm; Wt 154.8 kg
--- NOTE | 2016-10-28 07:45 | NUR ---
PT ASSESSMENT COMPLETE ON WALKING ROUNDS PT NOTED TO BE SITTING UP ON BEDSIDE COMMODE NO DISTRESS NOTED VOICES ALL NEEDS OT STAFF SON AT BEDSIDE. PT AWAKE AND ALERT ORIENTED X 3 LUNGS DIMINISHED SOUNDS BILATERALLY HOWEVER UNSURE IF FROM ACTUAL DIMINISHED CAPACITY OR DENSITY. WILL MONTITOR.
[2016-10-28 10:08] LABS: BASOPHILS 0.3 % (0-2); EOSINOPHILS 12.1 % (0-7); HEMATOCRIT 46.6 % (36.0-48.0); HEMOGLOBIN 14.7 g/dL (12-16); IMMATURE GRANULOCYTES 0.3 % (0-5); LYMPHOCYTES 17.8 % (15-50); MCH 27.3 pg (26.0-34.0); MCHC 31.5 g/dL (31.0-37.0); MCV 86.5 fL (80.0-100.0); MEAN PLATELET VOLUME 9.9 fL (7.4-10.4); MONOCYTES 9.9 % (2-11); NEUTROPHILS 59.6 % (40-80); PLATELET COUNT 201 10x3/uL (130-400); RBC 5.39 10x6/uL (4.00-5.40); RDW 14.3 % (11.5-14.5); WBC 5.9 10x3/uL (4.8-10.8)
[2016-10-28 10:21] LABS: ALBUMIN 3.2 g/dL (3.4-5.0); ANION GAP 8.8 mmol/L (8-16); BILIRUBIN - TOTAL 0.36 mg/dL (0.2-1.3); CALCIUM 8.9 mg/dL (8.5-10.1); CARBON DIOXIDE 36.8 mmol/L (21.0-32.0); POTASSIUM - SERUM 3.6 mmol/L (3.5-5.1); PROTEIN - SERUM 7.6 g/dL (6.4-8.2)
[2016-10-28 10:22] LABS: CREATININE - SERUM 0.9 mg/dL (0.6-1.3)
--- NOTE | 2016-10-28 11:33 | NUR ---
PATIENT SITTING UP IN WHEELCHAIR AT BEDSIDE. NO SIGNS OF DISTRESS NOTED. SUPERVISOR CUTTING AND BONING AT BEDSIDE. CALL LIGHT IN REACH.
--- NOTE | 2016-10-28 16:05 | NUR ---
PT RESTING IN BED WITH EYES CLOSED RESPS EVENA ND UNLABORED CALL LIGHT IN REACH SIDE RAILS UP X 2
--- NOTE | 2016-10-28 17:59 | NUR ---
PT WITH NO DISTRESS RESTING QUIETLY WITH SON AT BEDSIDE.
--- NOTE | 2016-10-28 21:26 | NUR ---
AWAKE,UP IN WHEELCHAIR. NO COMPLINATS VOICED. SL INTACT TO RIGHT ARM WITHOUT REDNESS OR EDEMA NOTED. CL IN REACH.
[2016-10-28 22:54] LABS: APPEARANCE CLEAR (CLEAR); BILIRUBIN NEGATIVE (NEGATIVE); COLOR YELLOW (YELLOW); GLUCOSE NEGATIVE (NEGATIVE); KETONE NEGATIVE (NEGATIVE); LEUKOCYTE ESTERASE NEGATIVE (NEGATIVE); NITRITE NEGATIVE (NEGATIVE); PROTEIN NEGATIVE (NEGATIVE); SPECIFIC GRAVITY 1.015 (1.005-1.020); UROBILINOGEN NORMAL (NORMAL)
[2016-10-29 00:55] VITALS: BP 139/90
--- NOTE | 2016-10-29 02:00 | NUR ---
UP IN WHEELCHAIR AMBULATING AROUND UNIT. NO DISTRESS NOTED.
--- NOTE | 2016-10-29 02:07 | NUR ---
PATIENT AT THE DRINK AREA MAKING TEA. SHE DENIES NEEDS AT THIS TIME. SHE IS ROLLING AROUND IN HER WHEELCHAIR. NO SIGNS OF DISTRESS NOTED. GRANDSON IN ROOM.
[2016-10-29 04:00] VITALS: BP 99/58
[2016-10-29 05:00] LABS: BASOPHILS 0.2 % (0-2); EOSINOPHILS 11.9 % (0-7); HEMATOCRIT 43.3 % (36.0-48.0); HEMOGLOBIN 13.7 g/dL (12-16); IMMATURE GRANULOCYTES 0.2 % (0-5); LYMPHOCYTES 22.8 % (15-50); MCH 27.4 pg (26.0-34.0); MCHC 31.6 g/dL (31.0-37.0); MCV 86.6 fL (80.0-100.0); MONOCYTES 8.3 % (2-11); NEUTROPHILS 56.6 % (40-80); PLATELET COUNT 201 10x3/uL (130-400); RDW 14.3 % (11.5-14.5); WBC 6.2 10x3/uL (4.8-10.8)
[2016-10-29 05:18] LABS: ALBUMIN 2.8 g/dL (3.4-5.0); ANION GAP 10.3 mmol/L (8-16); BILIRUBIN - TOTAL 0.2 mg/dL (0.2-1.3); CALCIUM 8.4 mg/dL (8.5-10.1); CARBON DIOXIDE 34.3 mmol/L (21.0-32.0); CREATININE - SERUM 1.1 mg/dL (0.6-1.3); POTASSIUM - SERUM 3.6 mmol/L (3.5-5.1); PROTEIN - SERUM 6.6 g/dL (6.4-8.2)
--- NOTE | 2016-10-29 05:37 | NUR ---
AROUSES EASILY TO VERBAL STIMULI. NO COMPLAINTS VOICED. NO DISTRESS NOTED. CL IN REACH.
--- NOTE | 2016-10-29 07:00 | NUR ---
PT REC'D FROM LILIAM GUAJARDO. SITTING UP IN WC AT BEDSIDE. AAOX4. RATING CURRENT PAIN IN LOWER BACK 10/06. WILL ADMINISTER PAIN MEDS AND REASSESS. PIV TO R FA FREE OF REDNESS AND SWELLING. REGULAR HEART RATE AND RHYTHM. EXPIRATORY WHEEZES NOTED TO RUL AND RML. DIMINISHED BILAT TO LOWER LOBES. BOWEL SOUNDS ACTIVE X4 QUADS. NO PAIN UPON PALPATION. PT STATES SHE HAD A BM YESTERDAY. WANTING TO KNOW WHY HE MEDS ARE NOT THE SAME WHAT SHE TAKES AT HOME. STATED I WOULD HAVE TO TALK TO THE DOCTOR TO FIND OUT FOR SURE. ALSO COMPLAINING OF NO URNATING OFTEN SHE NORAMLLY DOES. REQUESTING TO SEE A UROLOGIST. STATED THAT WOULD BE UP TO THE DOCTOR WELL, BUT I DON'T THINK INSURANCE WILL COVER IT. PT STATES SHE WEARS O2 AT HOME. CURRENT O2 SAT 90% ON RA. WILL APPLY O2. NO COMPLAINTS. BED LOW, CALL LIGHT IN REACH, DENIES NEEDS. CPOC.
[2016-10-29 07:39] VITALS: BP 118/59
--- NOTE | 2016-10-29 08:46 | NUR ---
Patient Name: CAMELIA WILLAMS Admission Status: Elective Accout number: [id number] Admission Date: 10-28-2016 : 1965 Admission Diagnosis: Attending: ADEN Current LOS: 1 Anticipated DC Date: 10-31-2016 Planned Disposition: Home Primary Insurance: MEDICARE A & B Discharge Planning Comments: CM MET WITH PATIENT REGARDING D/C NEEDS AND PLANS. PATIENT STATED SHE LIVES WITH HER CHILDREN AND SHE IS ALL THEY HAVE. PATIENT STATED THERE ARE NO STEPS OR STAIRS AT HER HOME. PATIENT STATED SHE IS INDEPENDENT WITH HER CARE AND HAS A WHEELCHAIR (USES), OXYGEN HS (2L) AND PRN, PORTABLE O2, AND NEBULIZER AT HOME. PATIENTS PCP IS DR. GASTON AND PHARMACY IS [facility]. PATIENT REFUSING HOME HEALTH AT DISCHARGE AT THIS TIME. PATIENT STATED SHE WILL DRIVE HERSELF HOME AT DISCHARGE. PCP DR. ALEK [facility]- [phone] NANCY SALAS (FRIEND) HELPS HER AT TIMES. [phone] [employer] Division Manager: Ragini Carolina Is the patient Alert and Oriented? Yes 0 * How many steps to enter\exit or inside your home? 0 0 * PCP DR. GASTON 0 * Pharmacy [facility] 0 * Preadmission Environment Home with Family 0 * ADLs Independent 0 * Equipment Nebulizer Oxygen Wheelchair 0 * List name and contact numbers for known caregivers / representatives who currently or will assist patient after discharge: NANCY SALAS (FRIEND) [phone] * Community resources currently utilized None 0 * Additional services required to return to the preadmission environment? Yes 0 * Can the patient safely return to the preadmission environment? Yes 0 * Has this patient been hospitalized within the prior 30 days at any hospital? No 0 Grand Total: 0
--- NOTE | 2016-10-29 09:30 | NUR ---
MORNING MEDS PASSED AT THIS TIME. PRN PAIN MEDICATION ADMINISTERED WELL DUE TO PT COMPLAINTS OF 8/10 LOWER BACK PAIN. WILL REASSESS. O2 APPLIED AT 2L. CURRENT O2 SAT 95%. BED LOW, CALL LIGHT IN REACH, DENIES NEEDS. CPOC.
--- NOTE | 2016-10-29 11:33 | NUR ---
CHANTEL HERNANDEZ, AT BEDSIDE DISCUSSING POC AND POSSIBLE DC. QUESTIONS ANSWERED AT GREAT LENGTH BY CHANTEL HERNANDEZ. VERY MUCH APPRECIATE THIS!
[2016-10-29 12:17] VITALS: BP 116/67
[2016-10-29] MEDS ORDERED: FERROUS SULFAT325 MG PO (14:40)
[2016-10-29] MEDS ORDERED: TRAZODONE HCL150 MG PO (14:41)
--- NOTE | 2016-10-29 14:55 | NUR ---
AWAKE AND ALERT. SITTING UP IN CHIAR AT BEDSDIE. 2 PLUS EDEMA NOTED TO BILATERAL LOWER EXTREMETIES. LUNGS ARE CLEAR BILATERALLY, NO COUGH NOTED. DENIES NEEDS.
--- NOTE | 2016-10-29 15:07 | NUR ---
CM REASSESSEMENT NOTE; PATIENT IS DICHARGING HOME TODAY. PATIENT STATING SHE IS DRIVING HERSELF HOME. PATIENT REFUSED HOME HEALTH AND STATED SHE HAD NO NEEDS FOR DISCHARGE.
[2016-10-29 15:35] VITALS: BP 132/77
--- NOTE | 2016-10-29 15:37 | NUR ---
DISCHARGE INSTRUCTIONS DISCUSSED AT THIS TIME. QUESTIONS AND CONCERNS VOICED. DISCUSSED PT'S FEELINGS OF NOT BEING WELL ENOUGH TO GO HOME. EXPLAINED TO PT THAT THE DOCTORS AND HEALTHCARE TEAM WOULD NOT DISCHARGE HER IF THEY DID NOT FEEL IT WAS APPROPRIATE. PT STATES SHE UNDERSTANDS, BUT SHE FEELS LIKE SHE WILL BE BACK SOON AND FEELING WORSE. APOLIGIZED AND ASKED IF SHE WANTED TO SPEAK WITH DR. CLAY. PT DENIES WANTING TO SPEAK WITH HER. PIV TO R FOREARM DC'D WITH CATHETER INTACT. PRESSURE AND DRESSING APPLIED. ALLOWED PT TIME TO DRESS.
--- NOTE | 2016-10-29 16:38 | NUR ---
PT ESCORTED OUT VIA WC.
== END 2016-10-29 16:39 | disposition home or self-care (01) | DRG 291 ==
LOC: D.MS 18:47 → OBSVTIME 18:47 → D.MS 18:47
PROVIDERS: Family Medicine; ADMIT Family Medicine
DX: I50.33 Acute on chronic diastolic (congestive) heart failure (principal); R53.2 Functional quadriplegia; J45.901 Unspecified asthma with (acute) exacerbation; J44.1 Chronic obstructive pulmonary disease with (acute) exacerbation; Z68.43 Body mass index [BMI] 50.0-59.9, adult; H53.8 Other visual disturbances; E66.01 Morbid (severe) obesity due to excess calories; R73.9 Hyperglycemia, unspecified

== ENCOUNTER 2016-12-13 17:07 | Inpatient (IN) | payer MEDICARE ==
[2016-10-28 12:22] VITALS: Wt 148.2 kg
[~2016-12-13 17:07] MED LIST changes: +FERROUS SULFAT325 MG PO
[2016-12-13] MEDS ORDERED: KLONOPIN1 MG PO (20:45)
[2016-12-18] MEDS ORDERED: MEDROL DOSE PACK4 MG PO (09:39)
[2016-12-18] MEDS ORDERED: DOXYCYCLINE HY100 M2 PO (10:26)
[2016-12-18 13:38] VITALS: BP 124/74
== END 2016-12-18 15:00 | disposition home or self-care (01) | DRG 189 ==
LOC: D.ER 17:07 → D.M2 19:35 → D.WS 12-17 23:02
PROVIDERS: ADMIT Family Medicine Adult Medicine
DX: J96.21 Acute and chronic respiratory failure with hypoxia (principal); J18.9 Pneumonia, unspecified organism; R53.2 Functional quadriplegia; J44.1 Chronic obstructive pulmonary disease with (acute) exacerbation; J44.0 Chronic obstructive pulmonary disease with (acute) lower respiratory infection; N39.0 Urinary tract infection, site not specified; Z68.43 Body mass index [BMI] 50.0-59.9, adult; E87.6 Hypokalemia; Z86.73 Personal history of transient ischemic attack (TIA), and cerebral infarction without residual deficits; E66.01 Morbid (severe) obesity due to excess calories; I50.9 Heart failure, unspecified

== ENCOUNTER 2017-02-23 10:03 | Outpatient (CLI) | payer MEDICARE ==
[~2017-02-23] VITALS: Ht 160 cm; Wt 143.2 kg
--- NOTE | ~2017-02-23 | HEMODYNAMI ---
PATIENT:CAMELIA WILLAMS MEDICAL RECORD: [id number] : [birth year] LOCATION:D[facility] ADMISSION DATE: 02/23/17 Generatedon:02/23/201713:07 Patient name: CAMELIA WILLAMS Patient #: [id number] SSN: : 1965 Date of study: 02/23/2017 Page: Of Hemodynamic Procedure Report Patient Data Patient Demographics Procedure consent was obtained First Name: CAMELIA Gender: Female Last Name: ЕКАТЕРИНА : 1965 Middle Initial: J Age: 51 year(s) Patient #: [id number] Race: Unknown Additional ID: [id number] Contact details Address: [address] State: [place] City: [place] Zip code: [address] Admission Admission Data Admission Date: 02/23/2017 Admission Time: 10:03 Admit Source: Other Lab Results Lab Result Date: 02/23/2017 Lab Result Time: 11:35 Biochemistry Name Units Result Min Max BUN mg/dl 15 --(--*-)-- 7 18 Creatinine mg/dl 0.8 --(-*--)-- 0.6 1.3 CBC Name Units Result Min Max Hematocrit % 45.5 --(-*--)-- 42 54 Hemoglobin g/dl 14.6 --(-*--)-- 13.5 17.5 Procedure Procedure Types Cath Procedure Diagnostic Procedure C [facility] w/Coronaries Miscellaneous Procedures Moderate Sedation up to 15 minutes Procedure Description Procedure Date Procedure Date: 02/23/2017 Procedure Start Time: 12:45 Procedure End Time: 13:06 Procedure Staff Name Function Art Barnes MD Performing Physician Baldemar Perdomo RT Monitor Willie Mena RT Scrub Mary Lund RN Nurse Joe Smith RN Nurse Procedure Data Cath Procedure Fluoroscopy Diagnostic fluoroscopy Total fluoroscopy Time: 6 time: 6 min min Diagnostic fluoroscopy Total fluoroscopy dose: 456 dose: 456 mGy mGy Contrast Material Contrast Material Type Amount (ml) Isovue 300 69 Entry Location Entry Primary Successful Side Size Upsize Upsize Entry Closure Lipscomb ccessful Closure Location (Fr) 1 (Fr) 2 (Fr) Remarks Device Remarks Radial Right 6 Fr Mechanical artery Short Compression Estimated blood loss: 10 ml Diagnostic catheters Device Type Used For End Catheter Placement Terumo 5Fr Jaspreet 110cm Procedure catheter Procedure Complications No complications Procedure Medications Medication Administration Route Dosage 0.9% NaCl I.V. ml/hr Oxygen NC 2 l/min Lidocaine 2% added to field 20 Heparin Flush Bag added to field 2 bags (1000units/500ml NS) Fentanyl I.V. 50 mcg Versed I.V. 2 mg Radial Cocktail added to field 1 syringe (Verapomil 2mg/Nitro 400mcg/Heparin 1500units) Fentanyl I.V. 50 mcg Fentanyl I.V. 100 mcg Hemodynamics Rest Heart Rate: 83 (bpm) Pressure Samples Time Site Value (mmHg) Purpose Heart Use Rate(bpm) 12:50 LV 91/-6,1 EDP 77 12:52 AO 98/75(86) Snapshot 73 Snapshots Pre Cath Intra NCS Post Cath Vital Signs Time Heart Resp SPO2 etCO2 NIBP (mmHg) Rhythm Pain Sedation Rate (ipm) (%) (mmHg) Status Level (bpm) 12:40:27 79 18 95 35.3 154/134(149) NSR 0 (11) 10(A) , No pain 12:44:35 81 17 95 38.3 123/93(109) NSR 0 (11) 9(A) , No pain 12:48:49 95 14 96 33.8 104/67(82) NSR 0 (11) 9(A) , No pain 12:53:03 76 16 98 27 122/69(91) NSR 0 (11) 10(A) , No pain 12:56:56 77 14 94 35.3 108/89(103) NSR 0 (11) 10(A) , No pain 13:01:06 72 16 94 31.5 120/65(84) NSR 0 (11) 10(A) , No pain 13:06:05 73 18 89 30 Measuring NSR 0 (11) 10(A) , No pain Medications Time Medication Route Dose Verified Delivered Reason Notes Effectiveness by by 12:16:38 0.9% NaCl I.V. ml/hr Art Buffie used for Cameron lorenzo MD 12:16:51 Oxygen NC 2 l/min Art Buffie used for Cameron Mendez RN procedure 12:17:05 Lidocaine 2% added 20ml Art Art for local to vial Cameron Barnes MD anesthetic field LAMBERT 12:17:22 Heparin Flush added 2 bags Art Art used for Bag to Cameron Barnes MD procedure (1000units/500ml field LAMBERT NS) 12:42:06 Fentanyl I.V. 50 mcg Art Buffie for sedation Cameron Mendez RN, MD 12:42:22 Versed I.V. 2 mg Art Mary for sedation Cameron Lund RN, MD 12:45:54 Radial Cocktail added 1 Art Art for (Verapomil to syringe Cameron Barnes MD vasodilation 2mg/Nitro field LAMBERT 400mcg/Heparin 1500units) 12:50:38 Fentanyl I.V. 100 mcg Art Mary for sedation Cameron Lund RN, MD 12:58:06 Fentanyl I.V. 50 mcg Art Mary for sedation Cameron Lund RN, MD Procedure Log Time Note 11:45:07 Informed consent obtained and on chart 11:45:12 Admit Source: Other 11:45:47 Diagnostic Cath status Elective 12:01:33 Time tracking: Regular hours 12:01:43 Plan of Care:Hemodynamics will remain stable., Cardiac rhythm will remain stable., Comfort level will be maintained., Respiratory function will remain adequate., Patient/ family verbilizes understanding of procedure., Procedure tolerated without complication., Recovers from procedure without complications.. 12:01:59 H&P Date Dictated: 02/17/2017 Within 30 days and on chart., H&P Addendum completed by physician on day of procedure. (MUST COMPLETE FOR ALL OUTPATIENTS). 12:02:49 Lab Result : Creatinine 0.8 mg/dl 12:02:49 Lab Result : BUN 15 mg/dl 12:02:49 Lab Result : Hemoglobin 14.6 g/dl 12:02:49 Lab Result : Hematocrit 45.5 % 12:05:19 Baldemar ROSARIO(R) sent for patient. Start room use. 12:11:12 Lab results completed and on chart. 12:16:38 0.9% NaCl ml/hr I.V. was administered by Darren Mendez RN; used for procedure; 12:16:51 Oxygen 2 l/min NC was administered by Darren Mendez RN; used for procedure; 12:17:05 Lidocaine 2% 20ml vial added to field was administered by Art Barnes MD; for local anesthetic; 12:17:22 Heparin Flush Bag (1000units/500ml NS) 2 bags added to field was administered by Art Barnes MD; used for procedure; 12:21:19 Patient received from Pre/Post Procedure Room to CCL 3 Alert and oriented. Tansferred to table in Supine position. 12:21:20 Warm blankets applied, and radha hugger turned on for patient comfort. 12:21:21 Correct patient and procedure confirmed by team. 12:21:22 ECG and BP/O2 sat monitors applied to patient. 12:21:23 Pre-procedure instructions explained to patient. 12:21:24 Pre-op teaching completed and patient verbalized understanding. 12:21:25 Family in waiting room. 12:21:27 Patient NPO since Midnight. 12:39:19 Vital chart was started 12:39:23 Rhythm: sinus rhythm 12:39:29 Full Disclosure recording started 12:39:32 Is the patient allergic to Iodine/contrast media? No. 12:39:35 Is patient on blood thinner?No 12:39:36 Patient diabetic? No. 12:39:39 Patient not . Patient has had hysterectomy. 12:39:41 Previous problem with sedation/anesthesia? No ? 12:39:42 Snore? Yes 12:39:43 Sleep apnea? No 12:39:44 Deviated septum? No 12:39:45 Opens mouth fully? Yes 12:39:46 Sticks out tongue? Yes 12:39:53 Airway obstruction? Yes Asthma, COPD 12:39:57 Dentures? Yes IN 12:40:06 Pre procedure: right dorsailis pedis pulse 1+ Palpable, but thready & weak; easily obliterated 12:40:13 Modified Marlon's test Ulnar < 7 seconds 12:40:15 Patient pain scale 0/10 ?. 12:40:21 IV patent on arrival in left antecubital with 0.9% NaCl at [facility]. 12:40:34 Right Radial & Right Groin area was prepped with chlora-prep and draped in sterile fashion 12:40:35 Alarms reviewed by RTawanna N. 12:40:36 Sharps counted by scrub and verified by R.N. 12::41 --------ALL STOP TIME OUT------ ::42 Final Timeout: patient, procedure, and site verified with staff and physician. All members of the team are in agreement. 12:40:44 Right Radial & Right Groin site verified by team. 12:40:48 Physical assessment completed. ASA score P 2 - A patient with mild systemic disease as per Art Barnes MD. 12:41:45 Sedation plan: IV Moderate Sedation Medication:Versed, Fentanyl 12:42:06 Fentanyl 50 mcg I.V. was administered by Darren Mendez RN; for sedation; 12:42:22 Versed 2 mg I.V. was administered by Mary Lund RN; for sedation; 12:44:13 Use device set Radial Dx 12:44:14 Tegaderm 4 x 4 opened to sterile field. 12:44:15 Acist Manifold opened to sterile field. 12:44:15 Acist Hand Control opened to sterile field. 12:44:16 Acist Syringe opened to sterile field. 12:44:17 Medline Cath Pack opened to sterile field. 12:44:17 Bag Decanter opened to sterile field. 12:44:17 Terumo 6Fr Slender Glidesheath opened to sterile field. 12:44:18 St Dino 260cm J .035 wire opened to sterile field. 12:44:18 MBrace Wrist Support opened to sterile field. 12:44:34 Procedure started. 12:45:48 Local anesthetic to right radial artery with Lidocaine 2% by Art Barnes MD.INITIAL ACCESS ONLY 12:45:54 Radial Cocktail (Verapomil 2mg/Nitro 400mcg/Heparin 1500units) 1 syringe added to field was administered by Art Barnes MD; for vasodilation; 12:46:53 A 6 Fr Short sheath was inserted into the Right Radial artery 12:48:34 Zero performed for pressure channel P1 12:49:25 A Terumo 5Fr Jaspreet 110cm catheter was advanced over the wire and used for Procedure. 12:49:35 Baseline sample Acquired. 12:50:38 Fentanyl 100 mcg I.V. was administered by Mary Lund RN; for sedation; 12:50:45 LV angiography performed. 12:50:46 LV gram done using GAYTAN 12:50:58 EF : 60 % 12:51:18 LV hemodynamics recorded. 12:51:21 Injector settings: Ml/sec: 12, Volume: 8, 12:52:36 RCA angiography performed. 12:54:24 Catheter exchanged over wire. 12:54:41 Cordis 6FR XBLAD 3.5 guide catheter opened to sterile field. 12:54:49 6 Fr XBLAD 3.5 guide catheter was inserted over the wire 12:58:06 Fentanyl 50 mcg I.V. was administered by Mary Lund RN; for sedation; 13:00:04 LCA angiography performed. 13:00:06 Catheter removed. 13:00:13 Terumo TR Band Large opened to sterile field. 13:00:52 Sheath removed intact; hemostasis achieved with Mechanical Compression to the Right Radial artery. 13:00:54 Procedure ended.(Physican Out) 13:01:41 Fluoroscopy time 06.00 minutes. 13:01:48 Fluoroscopy dose: 456 mGy 13:01:48 Flurop Dose total: 456 13:02:10 Contrast amount:Isovue 300 69ml. 13:02:12 Sharps counted by scrub and verified by R.N. 13:02:15 TR band inflated with 12cc of air. 13:02:16 Insertion/operative site no bleeding no hematoma. 13:02:18 Post Procedure Pulses reassessed and unchanged 13:02:20 Post-procedure physical assessment completed. ASA score P 2 - A patient with mild systemic disease as per Art Barnes MD. 13:02:23 Post procedure rhythm: unchanged. 13:02:25 Estimated blood loss: 10 ml 13:02:26 Post procedure instruction explained to patient.Patient verbalizes understanding. 13:02:27 Patient needs reinforcement of post procedure teaching. 13:02:50 Procedure type changed to Cath procedure, Diagnostic procedure, LHC, LHC w/Coronaries, Miscellaneous Procedures, Moderate Sedation up to 15 minutes 13:02:56 Procedure Complication : No complications 13:03:16 Procedure and supply charges have been captured, reviewed, submitted and are correct. 13:06:12 Vital chart was stopped 13:06:13 See physician's report for complete and final results. 13:06:17 Report given to Pre/Post Procedure Room. 13:06:20 Patient transfered to Pre/Post Procedure Room with Stretcher. 13:06:22 Procedure ended. 13:06:22 Full Disclosure recording stopped 13:06:30 End room use (Document Last) Device Usage Item Name Manufacture Quantity Catalog Hospital Part Current Minimal Lot# / Number Charge Number Stock Stock Serial# Code Tegaderm 4 3M 1 [id number] [id number] 213023 5 x 4 Acist Acist 1 69239 016337 146895 430497 5 Manifold Medical Systems Inc Acist Hand Acist 1 87628 989603 831796 391830 5 Control Medical Systems Inc Acist Acist 1 37356 979887 538572 742063 20 Syringe Medical Systems Inc Medline Cardinal 1 [id number] 536885 97632 075923 5 Cath Pack Health Bag Microtek 1 2001S 457476 79569 587227 5 Decanter Medical Inc. Terumo 6Fr Terumo 1 [id number] 565275 742412 971601 [address] D[address] St Dino 1 619985 589242 025619 406877 30 260cm J .035 wire MBrace Advanced 1 140-0250-00 774490 45110 551200 5 Wrist Vascular Support Dynamics Terumo 5Fr Terumo 1 89-8502 088294 696538 024270 5 Jaspreet 110cm catheter Cordis 6FR Cardinal 1 [id number] 169843 381361 615701 10 XBLAD 3.5 Health guide catheter Terumo TR Terumo 1 [id number] 391933 127123 693144 40 Band Large Signature Audit [place] Stage Time Signature Unsigned Intra-Procedure 02/23/2017 Baldemar Perdomo 1:07:08 PM RT(R) Signatures Monitor : Baldemar Perdomo RT Signature : Date : Time : [facility] [address] [place] [address]
[~2017-02-23 10:03] MED LIST changes: +MEDROL DOSE PACK4 MG PO
[2017-02-23] MEDS ORDERED: PERCOCET 10/3251 TA1 PO (11:03)
[2017-02-23] MEDS ORDERED: MOBIC7.5 MG PO (11:07)
[2017-02-23 11:13] VITALS: BP 140/89; Ht 160 cm; Wt 143.2 kg
[2017-02-23 11:46] LABS: BASOPHILS 0.2 % (0-2); EOSINOPHILS 4.8 % (0-7); HEMATOCRIT 45.5 % (36.0-48.0); HEMOGLOBIN 14.6 g/dL (12-16); IMMATURE GRANULOCYTES 0.2 % (0-5); LYMPHOCYTES 18.4 % (15-50); MCH 28.1 pg (26.0-34.0); MCHC 32.1 g/dL (31.0-37.0); MCV 87.7 fL (80.0-100.0); MEAN PLATELET VOLUME 10.6 fL (7.4-10.4); MONOCYTES 6.4 % (2-11); RBC 5.19 10x6/uL (4.00-5.40); RDW 14.9 % (11.5-14.5); WBC 6.4 10x3/uL (4.8-10.8)
[2017-02-23 11:55] LABS: PLATELET COUNT 179 10x3/uL (130-400)
[2017-02-23 11:58] LABS: CALC OSMOLALITY 275 mosm/kg (275-300); CALCIUM 9.1 mg/dL (8.5-10.1); CARBON DIOXIDE 27.9 mmol/L (21.0-32.0); CHLORIDE - SERUM 101 mmol/L (98-107); CREATININE - SERUM 0.8 mg/dL (0.6-1.3); GLUCOSE 86 mg/dL (74-106); POTASSIUM - SERUM 4.4 mmol/L (3.5-5.1); SODIUM 138 mmol/L (136-145); UREA NITROGEN 15 mg/dL (7-18); eGFR NON AFRICAN AMERICAN 80 mL/min (90-120)
--- NOTE | 2017-02-23 12:25 | NUR ---
PT C/O NAUSEA, REQUESTS PHENERGAN 25MG TAB PO, STATES SHE TAKES THIS AT HOME NEEDED FOR NAUSEA. TC TO DR JOY AND ORDER RECEIVED.
--- NOTE | 2017-02-23 13:36 | NUR ---
1335 PATIENT C/O BACK PAIN ON ARRIVAL. T/O GIVEN FROM DR. JOY FOR NORCO 10 NOW. MEDICATION GIVEN PER ORDER. WILL MONITOR FOR EFFECTIVENESS. TR BAND R WRIST C/D/I. ALL VITALS WNL.
--- NOTE | 2017-02-23 14:37 | NUR ---
1405 R WRIST REMAINS C/D/I W NO HEMATOMA OR BLEEDING. FAMILY AT SIDE. ALL VITALS WNL.
--- NOTE | 2017-02-23 14:49 | NUR ---
1435 2CC AIR REMOVED FROM R WRIST TR BAND. WILL MONITOR FOR BLEEDING. PIV REMOVED FROM LEFT AC WITH BANDAID APPLIED.
--- NOTE | 2017-02-23 15:07 | NUR ---
TR BAND WEANED COMPLETELY. TEGADERM AND COTTON BALL APPLIED. BRACE REAPPLIED. D/C INSTRUCTIONS DISCUSSED WITH PATIENT AND FAMILY AT BEDSIDE. WHEELED OUT VIA WHEELCHAIR.
== END 2017-02-23 15:11 | disposition home or self-care (01) ==
LOC: D.CATH 10:03
PROVIDERS: Internal Medicine Cardiovascular Disease
DX: I05.9 Rheumatic mitral valve disease, unspecified (principal); R07.9 Chest pain, unspecified; R94.39 Abnormal result of other cardiovascular function study; I31.9 Disease of pericardium, unspecified; I36.9 Nonrheumatic tricuspid valve disorder, unspecified; Z87.891 Personal history of nicotine dependence; Z01.812 Encounter for preprocedural laboratory examination

== ENCOUNTER 2017-03-14 20:59 | Emergency (ER) | payer MEDICARE ==
[2017-02-23 11:13] VITALS: BMI 55.9
[~2017-03-14 20:59] MED LIST changes: +PERCOCET 10/3251 TA1 PO
[2017-03-14 21:57] LABS: APPEARANCE HAZY (CLEAR); BILIRUBIN NEGATIVE (NEGATIVE); COLOR YELLOW (YELLOW); GLUCOSE NEGATIVE (NEGATIVE); KETONE NEGATIVE (NEGATIVE); NITRITE POSITIVE (NEGATIVE); PROTEIN TRACE mg/dL (NEGATIVE); UROBILINOGEN NORMAL (NORMAL)
[2017-03-14 21:59] LABS: WHITE CELLS - URINE >50 /hpf (0-5)
[2017-03-14 22:00] LABS: EPITHELIAL CELLS 0-5 /hpf (0-5)
[2017-03-14 22:01] LABS: BACTERIA MODERATE /hpf (NONE SEEN)
== END 2017-03-14 22:47 | disposition home or self-care (01) ==
LOC: D.ER 20:59
PROVIDERS: Emergency Medicine
DX: J20.9 Acute bronchitis, unspecified (principal); N39.0 Urinary tract infection, site not specified; Z86.73 Personal history of transient ischemic attack (TIA), and cerebral infarction without residual deficits; I50.9 Heart failure, unspecified; J44.9 Chronic obstructive pulmonary disease, unspecified

== ENCOUNTER 2017-05-20 09:24 | Emergency (ER) | payer MEDICARE ==
[2017-02-23 11:13] VITALS: BMI 55.9
[2017-05-20 10:36] LABS: APPEARANCE HAZY (CLEAR); BACTERIA FEW /hpf (NONE SEEN); BILIRUBIN NEGATIVE (NEGATIVE); COLOR YELLOW (YELLOW); EPITHELIAL CELLS 0-5 /hpf (0-5); GLUCOSE NEGATIVE (NEGATIVE); KETONE NEGATIVE (NEGATIVE); MUCUS <1+ /lpf (NONE SEEN); NITRITE NEGATIVE (NEGATIVE); PROTEIN NEGATIVE (NEGATIVE); SPECIFIC GRAVITY 1.015 (1.005-1.020); TALC POWDER CRYSTALS OCC /hpf (NONE SEEN); UROBILINOGEN NORMAL (NORMAL)
== END 2017-05-20 13:14 | disposition home or self-care (01) ==
LOC: D.ER 09:24
PROVIDERS: Emergency Medicine
DX: S70.02XA Contusion of left hip, initial encounter (principal); S50.02XA Contusion of left elbow, initial encounter; W05.0XXA Fall from non-moving wheelchair, initial encounter; Y93.89 Activity, other specified; Y92.89 Other specified places as the place of occurrence of the external cause; Z86.73 Personal history of transient ischemic attack (TIA), and cerebral infarction without residual deficits; I50.9 Heart failure, unspecified; J44.9 Chronic obstructive pulmonary disease, unspecified

== ENCOUNTER 2017-06-10 20:58 | Inpatient (IN) | payer MEDICARE ==
[~2017-06-10] VITALS: Ht 160 cm; Wt 137.3 kg
[2017-06-10 22:39] LABS: APPEARANCE HAZY (CLEAR); BILIRUBIN NEGATIVE (NEGATIVE); COLOR YELLOW (YELLOW); GLUCOSE NEGATIVE (NEGATIVE); KETONE NEGATIVE (NEGATIVE); NITRITE POSITIVE (NEGATIVE); PROTEIN TRACE mg/dL (NEGATIVE); SPECIFIC GRAVITY 1.005 (1.005-1.020); UROBILINOGEN NORMAL (NORMAL)
[2017-06-10 22:40] LABS: BACTERIA MANY /hpf (NONE SEEN); EPITHELIAL CELLS 0-5 /hpf (0-5); RED CELLS - URINE OCC /hpf (0-5); WHITE CELLS - URINE >50 /hpf (0-5)
[2017-06-10 23:13] LABS: BASOPHILS 0.1 % (0-2); EOSINOPHILS 0.5 % (0-7); HEMATOCRIT 37.3 % (36.0-48.0); IMMATURE GRANULOCYTES 0.1 % (0-5); LYMPHOCYTES 14.3 % (15-50); MCH 28.4 pg (26.0-34.0); MCHC 32.2 g/dL (31.0-37.0); MCV 88.4 fL (80.0-100.0); MEAN PLATELET VOLUME 9.5 fL (7.4-10.4); MONOCYTES 8.2 % (2-11); NEUTROPHILS 76.8 % (40-80); PLATELET COUNT 184 10x3/uL (130-400); RBC 4.22 10x6/uL (4.00-5.40); RDW 13.8 % (11.5-14.5); WBC 7.3 10x3/uL (4.8-10.8)
[2017-06-10 23:29] LABS: ALBUMIN 2.6 g/dL (3.4-5.0); ANION GAP 10.4 mmol/L (8-16); BILIRUBIN - TOTAL 0.48 mg/dL (0.2-1.3); CALCIUM 8.3 mg/dL (8.5-10.1); CARBON DIOXIDE 28.9 mmol/L (21.0-32.0); POTASSIUM - SERUM 3.3 mmol/L (3.5-5.1); PROTEIN - SERUM 6.9 g/dL (6.4-8.2)
[2017-06-11 07:25] LABS: BASOPHILS 0.1 % (0-2); HEMATOCRIT 38.3 % (36.0-48.0); HEMOGLOBIN 12.3 g/dL (12-16); IMMATURE GRANULOCYTES 0.1 % (0-5); LYMPHOCYTES 22.3 % (15-50); MCH 28.7 pg (26.0-34.0); MCHC 32.1 g/dL (31.0-37.0); MCV 89.3 fL (80.0-100.0); MEAN PLATELET VOLUME 9.9 fL (7.4-10.4); MONOCYTES 9.6 % (2-11); NEUTROPHILS 66.9 % (40-80); PLATELET COUNT 194 10x3/uL (130-400); RBC 4.29 10x6/uL (4.00-5.40)
[2017-06-11 07:37] LABS: CALCIUM 8.5 mg/dL (8.5-10.1); CARBON DIOXIDE 29.8 mmol/L (21.0-32.0); CREATININE - SERUM 1.1 mg/dL (0.6-1.3); MAGNESIUM - SERUM 1.9 mg/dL (1.8-2.4)
[2017-06-11 07:38] LABS: POTASSIUM - SERUM 3.8 mmol/L (3.5-5.1)
[2017-06-11 16:56] VITALS: BP 107/68; Ht 160 cm; Wt 137.3 kg
[2017-06-11 20:00] VITALS: BP 94/37
[2017-06-12] VITALS: BP 107/55
[2017-06-12 04:00] VITALS: BP 102/47
[2017-06-12 05:14] LABS: BASOPHILS 0.2 % (0-2); EOSINOPHILS 3.2 % (0-7); HEMATOCRIT 34.1 % (36.0-48.0); HEMOGLOBIN 10.9 g/dL (12-16); IMMATURE GRANULOCYTES 0.2 % (0-5); LYMPHOCYTES 23.8 % (15-50); MCH 28.3 pg (26.0-34.0); MCV 88.6 fL (80.0-100.0); MEAN PLATELET VOLUME 9.6 fL (7.4-10.4); MONOCYTES 9.9 % (2-11); NEUTROPHILS 62.7 % (40-80); PLATELET COUNT 184 10x3/uL (130-400); RBC 3.85 10x6/uL (4.00-5.40); RDW 14.2 % (11.5-14.5); WBC 5.3 10x3/uL (4.8-10.8)
[2017-06-12 05:28] LABS: ANION GAP 9.8 mmol/L (8-16); CARBON DIOXIDE 26.5 mmol/L (21.0-32.0); CREATININE - SERUM 1.3 mg/dL (0.6-1.3); POTASSIUM - SERUM 4.3 mmol/L (3.5-5.1)
[2017-06-12 08:08] VITALS: BP 101/48
[2017-06-12 11:02] VITALS: BP 105/49
[2017-06-12] MEDS ORDERED: CIPRO500 MG PO (12:07)
== END 2017-06-12 14:06 | disposition home or self-care (01) | DRG 690 ==
LOC: D.ER 20:58 → D.EDHOLD 06-11 00:05 → D.M2 06-11 15:29
PROVIDERS: Family Medicine; Internal Medicine Nephrology; Physician Assistant Medical
DX: N39.0 Urinary tract infection, site not specified (principal); J44.9 Chronic obstructive pulmonary disease, unspecified; E87.6 Hypokalemia; F32.9 Major depressive disorder, single episode, unspecified; F41.9 Anxiety disorder, unspecified; I50.9 Heart failure, unspecified; Z86.73 Personal history of transient ischemic attack (TIA), and cerebral infarction without residual deficits

== ENCOUNTER 2017-09-04 15:39 | Emergency (ER) | payer MEDICARE ==
[~2017-09-04] VITALS: Ht 160 cm; Wt 140.5 kg
[~2017-09-04 15:39] MED LIST changes: +CIPRO500 MG PO
[2017-09-04 16:06] VITALS: Ht 160 cm; Wt 140.5 kg
[2017-09-04] MEDS ORDERED: ELIXOPHYLL80 MG/15 M (16:11)
[2017-09-04 19:07] LABS: BASOPHILS 0.2 % (0-2); EOSINOPHILS 0.5 % (0-7); HEMATOCRIT 46.5 % (36.0-48.0); HEMOGLOBIN 15.3 g/dL (12-16); IMMATURE GRANULOCYTES 0.2 % (0-5); LYMPHOCYTES 14.5 % (15-50); MCH 29.5 pg (26.0-34.0); MCHC 32.9 g/dL (31.0-37.0); MCV 89.6 fL (80.0-100.0); MEAN PLATELET VOLUME 9.5 fL (7.4-10.4); MONOCYTES 6.2 % (2-11); NEUTROPHILS 78.4 % (40-80); PLATELET COUNT 142 10x3/uL (130-400); RBC 5.19 10x6/uL (4.00-5.40); RDW 13.6 % (11.5-14.5); WBC 4.2 10x3/uL (4.8-10.8)
[2017-09-04 19:08] LABS: APPEARANCE HAZY (CLEAR); BILIRUBIN NEGATIVE (NEGATIVE); COLOR YELLOW (YELLOW); GLUCOSE NEGATIVE (NEGATIVE); KETONE NEGATIVE (NEGATIVE); NITRITE POSITIVE (NEGATIVE); PROTEIN NEGATIVE (NEGATIVE); SPECIFIC GRAVITY 1.015 (1.005-1.020); UROBILINOGEN NORMAL (NORMAL)
[2017-09-04 19:09] LABS: BACTERIA MANY /hpf (NONE SEEN); EPITHELIAL CELLS 0-5 /hpf (0-5); RED CELLS - URINE 0-5 /hpf (0-5)
[2017-09-04 19:38] LABS: ALBUMIN 3.3 g/dL (3.4-5.0); ANION GAP 10.8 mmol/L (8-16); BILIRUBIN - TOTAL 0.27 mg/dL (0.2-1.3); CALCIUM 8.4 mg/dL (8.5-10.1); CARBON DIOXIDE 32.2 mmol/L (21.0-32.0); CREATININE - SERUM 1.1 mg/dL (0.6-1.3); PROTEIN - SERUM 7.3 g/dL (6.4-8.2)
[2017-09-04] MEDS ORDERED: MACROBID100 MG PO (21:14)
[2017-09-04 21:52] VITALS: BP 150/87
[2017-09-05] MEDS ORDERED: SUMATRIPTAN SUC25 MG PO (21:59)
== END 2017-09-04 21:25 | disposition home or self-care (01) ==
LOC: D.ER 15:39
PROVIDERS: Family Medicine
DX: J44.1 Chronic obstructive pulmonary disease with (acute) exacerbation (principal); R30.0 Dysuria; N39.0 Urinary tract infection, site not specified; R05 Cough; R06.02 Shortness of breath; Z86.73 Personal history of transient ischemic attack (TIA), and cerebral infarction without residual deficits; Z86.79 Personal history of other diseases of the circulatory system

== ENCOUNTER 2017-09-05 18:26 | Emergency (ER) | payer MEDICARE ==
[~2017-09-05] VITALS: Ht 160 cm; Wt 86.4 kg
[~2017-09-05 18:26] MED LIST changes: +ELIXOPHYLL80 MG/15 M; +MACROBID100 MG PO
[2017-09-05 18:39] VITALS: Ht 160 cm; Wt 86.4 kg
[2017-09-05 21:28] LABS: APPEARANCE HAZY (CLEAR); BILIRUBIN NEGATIVE (NEGATIVE); COLOR YELLOW (YELLOW); GLUCOSE NEGATIVE (NEGATIVE); KETONE NEGATIVE (NEGATIVE); NITRITE NEGATIVE (NEGATIVE); PROTEIN NEGATIVE (NEGATIVE); SPECIFIC GRAVITY 1.015 (1.005-1.020); UROBILINOGEN NORMAL (NORMAL)
[2017-09-05 21:32] LABS: BACTERIA FEW /hpf (NONE SEEN); EPITHELIAL CELLS 0-5 /hpf (0-5); RED CELLS - URINE 0-5 /hpf (0-5); WHITE CELLS - URINE 0-5 /hpf (0-5)
[2017-09-05] MEDS ORDERED: SUMATRIPTAN SUC25 MG PO (21:59)
[2017-09-05 22:13] VITALS: BP 140/53
== END 2017-09-05 22:16 | disposition home or self-care (01) ==
LOC: D.ER 18:26
PROVIDERS: Family Medicine
DX: G43.909 Migraine, unspecified, not intractable, without status migrainosus (principal); J45.909 Unspecified asthma, uncomplicated; I50.9 Heart failure, unspecified; Z86.73 Personal history of transient ischemic attack (TIA), and cerebral infarction without residual deficits; J44.9 Chronic obstructive pulmonary disease, unspecified

== ENCOUNTER 2018-05-15 15:41 | Emergency (ER) | payer MEDICARE, MEDICAID ==
[~2018-05-15] VITALS: Ht 160 cm; Wt 142.0 kg
[~2018-05-15 15:41] MED LIST changes: +SUMATRIPTAN SUC25 MG PO
[2018-05-15 15:46] VITALS: Ht 160 cm; Wt 142.0 kg
[2018-05-15 16:09] LABS: APPEARANCE CLEAR (CLEAR); COLOR YELLOW (YELLOW)
[2018-05-15 16:10] LABS: BILIRUBIN NEGATIVE (NEGATIVE); GLUCOSE NEGATIVE (NEGATIVE); KETONE NEGATIVE (NEGATIVE); NITRITE NEGATIVE (NEGATIVE); PROTEIN NEGATIVE (NEGATIVE); UROBILINOGEN NORMAL (NORMAL)
[2018-05-15 16:28] LABS: BASOPHILS 0.3 % (0-2); EOSINOPHILS 4.3 % (0-7); HEMATOCRIT 44.4 % (36.0-48.0); HEMOGLOBIN 14.7 g/dL (12-16); IMMATURE GRANULOCYTES 0.3 % (0-5); MCHC 33.1 g/dL (31.0-37.0); MCV 87.6 fL (80.0-100.0); MEAN PLATELET VOLUME 9.5 fL (7.4-10.4); MONOCYTES 12.3 % (2-11); NEUTROPHILS 57.8 % (40-80); RBC 5.07 10x6/uL (4.00-5.40); RDW 14.3 % (11.5-14.5); WBC 5.9 10x3/uL (4.8-10.8)
[2018-05-15 16:31] LABS: PLATELET COUNT 203 10x3/uL (130-400)
[2018-05-15 16:44] LABS: ALBUMIN 3.1 g/dL (3.4-5.0); ALKALINE PHOSPHATASE 105 U/L (46-116); ALT (SGPT) 19 U/L (10-68); BILIRUBIN - TOTAL 0.27 mg/dL (0.2-1.3); CALC OSMOLALITY 277 mosm/kg (275-300); CALCIUM 8.3 mg/dL (8.5-10.1); CARBON DIOXIDE 25.4 mmol/L (21.0-32.0); CHLORIDE - SERUM 102 mmol/L (98-107); GLUCOSE 91 mg/dL (74-106); POTASSIUM - SERUM 4.8 mmol/L (3.5-5.1); PROTEIN - SERUM 7.1 g/dL (6.4-8.2); SODIUM 139 mmol/L (136-145); UREA NITROGEN 12 mg/dL (7-18); eGFR NON AFRICAN AMERICAN 62 mL/min (90-120)
[2018-05-15 16:45] LABS: APTT 33.8 SECONDS (22.8-39.4); INR 1.24 (0.85-1.17); PROTIME 15.1 SECONDS (11.6-15.0)
[2018-05-15 16:48] LABS: TROPONIN-I < 0.017 ng/mL (0.000-0.060)
[2018-05-15 16:53] LABS: D-DIMER-QUANTITATIVE 1.53 ug/mLFEU (0.20-0.54)
[2018-05-15] MEDS ORDERED: VIBRAMYCIN 100100 MG PO (18:52)
[2018-05-15] MEDS ORDERED: SYMBICORT 16010.2 GM INH (18:52)
[2018-05-15 19:06] VITALS: BP 102/60
== END 2018-05-15 19:07 | disposition home or self-care (01) ==
LOC: D.ER 15:41
PROVIDERS: Family Medicine
DX: J45.909 Unspecified asthma, uncomplicated (principal); E66.01 Morbid (severe) obesity due to excess calories; Z86.73 Personal history of transient ischemic attack (TIA), and cerebral infarction without residual deficits; I50.9 Heart failure, unspecified; J44.9 Chronic obstructive pulmonary disease, unspecified

== ENCOUNTER 2018-07-15 14:02 | Emergency (ER) | payer MEDICARE, MEDICAID ==
[~2018-07-15] VITALS: Ht 160 cm; Wt 142.7 kg
[~2018-07-15 14:02] MED LIST changes: +SYMBICORT 16010.2 GM INH
[2018-07-15 14:03] VITALS: Ht 160 cm; Wt 142.7 kg
[2018-07-15 14:58] LABS: BASOPHILS 0.1 % (0-2); EOSINOPHILS 1.3 % (0-7); HEMATOCRIT 45.2 % (36.0-48.0); HEMOGLOBIN 15.1 g/dL (12-16); IMMATURE GRANULOCYTES 0.2 % (0-5); LYMPHOCYTES 12.5 % (15-50); MCH 28.7 pg (26.0-34.0); MCHC 33.4 g/dL (31.0-37.0); MCV 85.8 fL (80.0-100.0); MONOCYTES 6.8 % (2-11); NEUTROPHILS 79.1 % (40-80); PLATELET COUNT 184 10x3/uL (130-400); RBC 5.27 10x6/uL (4.00-5.40); RDW 14.2 % (11.5-14.5); WBC 8.3 10x3/uL (4.8-10.8)
[2018-07-15 15:09] LABS: APTT 31.9 SECONDS (22.8-39.4); INR 1.31 (0.85-1.17); PROTIME 15.7 SECONDS (11.6-15.0)
[2018-07-15 15:11] LABS: ALBUMIN 3.1 g/dL (3.4-5.0); ALKALINE PHOSPHATASE 98 U/L (46-116); ALT (SGPT) 13 U/L (10-68); BILIRUBIN - TOTAL 0.27 mg/dL (0.2-1.3); CALC OSMOLALITY 276 mosm/kg (275-300); CALCIUM 8.7 mg/dL (8.5-10.1); CARBON DIOXIDE 30.9 mmol/L (21.0-32.0); CHLORIDE - SERUM 104 mmol/L (98-107); CREATININE - SERUM 0.8 mg/dL (0.6-1.3); GLUCOSE 98 mg/dL (74-106); POTASSIUM - SERUM 3.6 mmol/L (3.5-5.1); SODIUM 139 mmol/L (136-145); UREA NITROGEN 10 mg/dL (7-18); eGFR NON AFRICAN AMERICAN 79 mL/min (90-120)
[2018-07-15 15:24] LABS: CKMB 1.4 U/L (0.0-3.6); CREATINE KINASE 72 UL (21-215); TROPONIN-I < 0.017 ng/mL (0.000-0.060)
[2018-07-15 16:08] LABS: APPEARANCE CLEAR (CLEAR); BILIRUBIN NEGATIVE (NEGATIVE); COLOR YELLOW (YELLOW); GLUCOSE NEGATIVE (NEGATIVE); KETONE NEGATIVE (NEGATIVE); NITRITE NEGATIVE (NEGATIVE); PROTEIN NEGATIVE (NEGATIVE); UROBILINOGEN NORMAL (NORMAL)
[2018-07-15 17:10] VITALS: BP 138/84
== END 2018-07-15 17:12 | disposition home or self-care (01) ==
LOC: D.ER 14:02
PROVIDERS: Emergency Medicine
DX: R05 Cough (principal); R68.83 Chills (without fever); R00.0 Tachycardia, unspecified

== ENCOUNTER 2018-11-24 15:30 | Inpatient (IN) | payer MEDICARE ==
[~2018-11-24] VITALS: Ht 160 cm; Wt 122.7 kg
[2018-11-24 16:21] VITALS: BP 101/52
[2018-11-24 16:28] LABS: HEMATOCRIT 41.3 % (36.0-48.0); HEMOGLOBIN 14.2 g/dL (12-16); MCH 28.5 pg (26.0-34.0); MCHC 34.4 g/dL (31.0-37.0); MCV 82.8 fL (80.0-100.0); MEAN PLATELET VOLUME 10.1 fL (7.4-10.4); RBC 4.99 10x6/uL (4.00-5.40); RDW 15.3 % (11.5-14.5); WBC 2.9 10x3/uL (4.8-10.8)
[2018-11-24 16:31] LABS: PLATELET COUNT 111 10x3/uL (130-400)
[2018-11-24 16:41] LABS: APTT 33.9 SECONDS (22.8-39.4); INR 1.35 (0.85-1.17); PROTIME 16.1 SECONDS (11.6-15.0)
[2018-11-24 16:55] LABS: ALBUMIN 2.6 g/dL (3.4-5.0); ALKALINE PHOSPHATASE 89 U/L (46-116); ALT (SGPT) 7 U/L (10-68); BILIRUBIN - TOTAL 0.52 mg/dL (0.2-1.3); CALC OSMOLALITY 263 mosm/kg (275-300); CALCIUM 8.2 mg/dL (8.5-10.1); CARBON DIOXIDE 27.4 mmol/L (21.0-32.0); CHLORIDE - SERUM 98 mmol/L (98-107); GLUCOSE 96 mg/dL (74-106); PROTEIN - SERUM 6.5 g/dL (6.4-8.2); SODIUM 133 mmol/L (136-145); UREA NITROGEN 7 mg/dL (7-18); eGFR NON AFRICAN AMERICAN 61 mL/min (90-120)
[2018-11-24 16:57] LABS: CKMB 0.4 U/L (0.0-3.6); CREATINE KINASE 70 UL (21-215)
[2018-11-24 17:02] LABS: TROPONIN-I < 0.017 ng/mL (0.000-0.060)
[2018-11-24 17:02] LABS: APPEARANCE CLEAR (CLEAR); BILIRUBIN NEGATIVE (NEGATIVE); COLOR YELLOW (YELLOW); GLUCOSE NEGATIVE (NEGATIVE); KETONE NEGATIVE (NEGATIVE); NITRITE NEGATIVE (NEGATIVE); PROTEIN TRACE mg/dL (NEGATIVE); UROBILINOGEN NORMAL (NORMAL)
[2018-11-24 17:03] LABS: BACTERIA MANY /hpf (NONE SEEN); EPITHELIAL CELLS 0-5 /hpf (0-5); RED CELLS - URINE 0-5 /hpf (0-5)
[2018-11-24 17:04] LABS: MUCUS <1+ /lpf (NONE SEEN)
[2018-11-24 17:13] LABS: LYMPHOCYTES 20 % (15-50); MONOCYTES 8 % (2-11); NEUTROPHILS 72 % (40-80); PLATELET ESTIMATE DECREASED
[2018-11-24 17:15] VITALS: BP 99/51
--- NOTE | 2018-11-24 19:20 | NUR ---
PATIENT ARRIVED FROM ER VIA STETCHER ESCORTED BY STAFF. NO DISTRESS NOTED. NO COMPLAINTS AT THIS TIME.
[2018-11-25] VITALS (7 sets, daily range): BP systolic 90–130; BP diastolic 40–66
--- NOTE | 2018-11-25 | NUR ---
PATIENT LAYING IN BED EYES CLOSED, CHEST RISING AND FALLING. NO DISTRESS NOTED.
[2018-11-25] MEDS ORDERED: SEREVENT INH (00:30)
[2018-11-25] MEDS ORDERED: ULTRAM50 MG PO (00:31)
--- NOTE | 2018-11-25 03:17 | NUR ---
I have reviewed this patient and I concur with the Shift Assessment completed by the Licensed Practical Nurse today this shift.
[2018-11-25 05:28] LABS: BASOPHILS 0 % (0-2); EOSINOPHILS 0.5 % (0-7); HEMATOCRIT 38.1 % (36.0-48.0); HEMOGLOBIN 13.1 g/dL (12-16); LYMPHOCYTES 24.4 % (15-50); MCH 28.5 pg (26.0-34.0); MCHC 34.4 g/dL (31.0-37.0); MEAN PLATELET VOLUME 9.9 fL (7.4-10.4); MONOCYTES 12.7 % (2-11); NEUTROPHILS 61.4 % (40-80); RBC 4.59 10x6/uL (4.00-5.40); RDW 15.4 % (11.5-14.5)
[2018-11-25 05:52] LABS: PLATELET COUNT 81 10x3/uL (130-400); WBC 2.1 10x3/uL (4.8-10.8)
[2018-11-25 06:06] LABS: ALBUMIN 2.1 g/dL (3.4-5.0); ALKALINE PHOSPHATASE 76 U/L (46-116); ALT (SGPT) 8 U/L (10-68); BILIRUBIN - TOTAL 0.41 mg/dL (0.2-1.3); CALC OSMOLALITY 269 mosm/kg (275-300); CALCIUM 8.1 mg/dL (8.5-10.1); CARBON DIOXIDE 27.3 mmol/L (21.0-32.0); CHLORIDE - SERUM 102 mmol/L (98-107); CREATININE - SERUM 0.8 mg/dL (0.6-1.3); GLUCOSE 94 mg/dL (74-106); POTASSIUM - SERUM 3.2 mmol/L (3.5-5.1); PROTEIN - SERUM 5.8 g/dL (6.4-8.2); SODIUM 136 mmol/L (136-145); UREA NITROGEN 7 mg/dL (7-18); eGFR NON AFRICAN AMERICAN 79 mL/min (90-120)
--- NOTE | 2018-11-25 07:38 | NUR ---
REPORT RECEIVED. WILL CONTINUE WITH POC. PT CURRENTLY RESTING ON RIGHT SIDE. CALL LIGHT W/I REACH. RR EVEN AND UNLABORED ON RA. R.HAND PIV IS SALINE LOCKED. LR INFUSING @125ML/HR VIA L.HAND PIV. PT DENIES ANY NEEDS. NO S/S OF DISTRESS NOTED. WILL CTM.
--- NOTE | 2018-11-25 16:50 | NUR ---
ABX CURRENTLY INFUSING. PT HAS A ORAL TEMP OF 103.1. ADMINISTERED ORDERED DOSE OF TYLENOL. PT DENIES ANY NEEDS. NO S/S OF DISTRESS NOTED. WILL CTM.
--- NOTE | 2018-11-25 17:13 | NUR ---
I have reviewed this patient and I concur with the Shift Assessment completed by the Licensed Practical Nurse today this shift.
[2018-11-25 18:27] LABS: UDS - AMPHET NEGATIVE QUAL (NEGATIVE); UDS - BARB NEGATIVE QUAL (NEGATIVE); UDS - BENZO NEGATIVE QUAL (NEGATIVE); UDS - COCAINE NEGATIVE QUAL (NEGATIVE); UDS - OPIATE NEGATIVE QUAL (NEGATIVE); UDS - PCP NEGATIVE QUAL (NEGATIVE); UDS - THC NEGATIVE QUAL (NEGATIVE)
--- NOTE | 2018-11-25 19:56 | NUR ---
ROUNDS COMPLETED. VSS, AAOX3. HELPED PT UP TO BEDSIDE COMODE. PT STATES HER NAUSEA IS GETTING BETTER. IV L.HAND /R.HAND SL. PT DENIES ANY FURTHER NEEDS AT THIS TIME. WILL CPOC. CUP OF ICE PROVIDED PER PT REQUEST WILL CTM.
[2018-11-26] VITALS: BP 124/99
--- NOTE | 2018-11-26 00:58 | NUR ---
PT TEMP 102.4 PO PRN TYLENOL GIVEN. IV PRN DILAUDID ALSO GIVEN FOR GENERALIZED BODY PAIN 01/06. IV MERREM/LR INFUSING AT THIS TIME. WILL CPOC. CL WITHIN REACH.
[2018-11-26 04:00] VITALS: BP 116/68
[2018-11-26 05:42] LABS: HEMATOCRIT 38.9 % (36.0-48.0); HEMOGLOBIN 13.1 g/dL (12-16); MCH 28.3 pg (26.0-34.0); MCHC 33.7 g/dL (31.0-37.0); MEAN PLATELET VOLUME 10.8 fL (7.4-10.4); PLATELET COUNT 70 10x3/uL (130-400); RBC 4.63 10x6/uL (4.00-5.40); RDW 15.9 % (11.5-14.5)
[2018-11-26 05:49] LABS: WBC 1.8 10x3/uL (4.8-10.8)
[2018-11-26 06:24] LABS: ANION GAP 9.6 mmol/L (8-16); CALCIUM 7.5 mg/dL (8.5-10.1); CARBON DIOXIDE 27.1 mmol/L (21.0-32.0); CREATININE - SERUM 0.9 mg/dL (0.6-1.3); VANCOMYCIN - TROUGH 11.1 ug/mL (10.0-20.0)
[2018-11-26 06:25] LABS: POTASSIUM - SERUM 3.7 mmol/L (3.5-5.1)
--- NOTE | 2018-11-26 07:55 | NUR ---
REPORT RECIEVED. RADHA RN IS CURRENTLY TRYING TO GET A PIV AFTER PT PULLED OUT BOTH PIV LAST NIGHT. RR EVEN AND UNLABORED. NO DISTRESS NOTED. BED LOCKED AND IN LOWEST POSITION. CALL LIGHT WITHIN REACH. WILL CTM
[2018-11-26 08:00] VITALS: BP 95/52
[2018-11-26 10:09] LABS: LYMPHOCYTES 24 % (15-50); MONOCYTES 11 % (2-11); NEUTROPHILS 58 % (40-80); PLATELET ESTIMATE DECREASED
[2018-11-26 10:10] LABS: ANISOCYTOSIS OCC
[2018-11-26 12:19] LABS: ERYTHROCYTE SEDIMENTATION RATE 10 mm/hr (0-30)
--- NOTE | 2018-11-26 12:25 | NUR ---
PT COMPLAINS OF PAIN 9/10, UNABLE TO GIVE PAIN MEDS DUE TO WAITING ON PLACEMENT OF MIDLINE. CALL ARLETH AND LEFT MESSAGE ABOUT AN ETA ON PLACEMENT. WILL CTM
--- NOTE | 2018-11-26 17:15 | NUR ---
ENTERED PTS ROOM, SHE FEELS THAT SHE IS STARTING TO GET A FEVER. CHECKED FEVER AT THIS TIME IT WAS 100.4. I GAVE HER 650MG OF TYLENOL. WILL CTM
[2018-11-26 20:00] VITALS: BP 82/42
--- NOTE | 2018-11-26 21:10 | NUR ---
PT BP ON ASSESSMENT 70/27, 82/42, 74/32 CONSECUTIVELY IN SPACE OF 15MIN. NOTIFIED CHANTEL GARCIA. HE OREDERED CMP WITH CALCIUM AND ALBUMIN STAT. ORDERS PUT IN. AWAITING LAB TO COME DRAW BLOOD. PT IS IN NO DISTRESS AT THIS TIME. WILL CPOC. CL WITHIN REACH, BED IN LOW, SR UP X2.
[2018-11-26 21:22] LABS: ALBUMIN 1.8 g/dL (3.4-5.0); ALKALINE PHOSPHATASE 72 U/L (46-116); BILIRUBIN - TOTAL 0.26 mg/dL (0.2-1.3); CALC OSMOLALITY 268 mosm/kg (275-300); CARBON DIOXIDE 30.3 mmol/L (21.0-32.0); CHLORIDE - SERUM 101 mmol/L (98-107); CREATININE - SERUM 0.7 mg/dL (0.6-1.3); GLUCOSE 88 mg/dL (74-106); POTASSIUM - SERUM 3.6 mmol/L (3.5-5.1); PROTEIN - SERUM 4.8 g/dL (6.4-8.2); SODIUM 136 mmol/L (136-145); UREA NITROGEN 8 mg/dL (7-18); eGFR NON AFRICAN AMERICAN > 90 mL/min (90-120)
[2018-11-26 21:23] LABS: ALT (SGPT) 14 U/L (10-68)
[2018-11-26 21:24] LABS: CALCIUM 6.9 mg/dL (8.5-10.1)
--- NOTE | 2018-11-26 21:40 | NUR ---
LAB CALLED BACK RESULTS. ALBUMIN 1.8, CALCIUM 6.9 CRITICAL. NOTIFIED CHANTEL GARCIA. HE STATES TO GIVE ANOTHER 500CC BOLUS NS. WILL ADMINISTER PER ORDER. PT CURRENT BP 89/39.
--- NOTE | 2018-11-27 01:12 | NUR ---
CALLED TO ROOM, PT ASKING FOR HER LEFT ARM MIDLINE TO BE LOOKED AT BECAUSE PT STATED THAT SHE THINKS ITS LEAKING. SMALL AMOUNT OF BLOOD NOTED ON DRSG, MIDLINE FLUSHED WITHOUT DIFFUCLUTY, NO LEAKING NOTED. WILL CHANGE DRSG SHORTLY.
--- NOTE | 2018-11-27 03:30 | NUR ---
RESTING WITH EYES CLOSED, RESPERATIONS EVEN, NO S/S DISTRESS NOTED.
[2018-11-27 04:00] VITALS: BP 99/39
[2018-11-27 06:09] LABS: HEPATITIS C ANTIBODY <0.1 (0.0-0.9)
--- NOTE | 2018-11-27 07:14 | NUR ---
REPORT RECEIVED. WILL CONTINUE WITH POC. PT CURRENTLY LYING ON LEFT SIDE. CALL LIGHT W/I REACH. PT IS SLEEPING. RR EVEN AND UNLABORED ON 2L 02. LR INFUSING @125ML/HR VIA L.ARM MIDLINE. PT DENIES ANY NEEDS AT THIS TIME. NO S/S OF DISTRESS NOTED. WILL CTM.
[2018-11-27 07:20] LABS: CALC OSMOLALITY 270 mosm/kg (275-300); CALCIUM 7.4 mg/dL (8.5-10.1); CARBON DIOXIDE 25.9 mmol/L (21.0-32.0); CHLORIDE - SERUM 103 mmol/L (98-107); CREATINE KINASE 76 UL (21-215); CREATININE - SERUM 0.7 mg/dL (0.6-1.3); GLUCOSE 96 mg/dL (74-106); POTASSIUM - SERUM 3.8 mmol/L (3.5-5.1); SODIUM 136 mmol/L (136-145); UREA NITROGEN 9 mg/dL (7-18); eGFR NON AFRICAN AMERICAN > 90 mL/min (90-120)
[2018-11-27 07:36] LABS: C-REACTIVE PROTEIN 20.9 mg/dL (0.0-0.9)
[2018-11-27 07:55] LABS: BASOPHILS 5.8 % (0-2); EOSINOPHILS 3.6 % (0-7); HEMATOCRIT 37.3 % (36.0-48.0); HEMOGLOBIN 12.2 g/dL (12-16); IMMATURE GRANULOCYTES 0.7 % (0-5); LYMPHOCYTES 47.8 % (15-50); MCH 28.7 pg (26.0-34.0); MCHC 32.7 g/dL (31.0-37.0); MEAN PLATELET VOLUME 11.2 fL (7.4-10.4); MONOCYTES 13.8 % (2-11); NEUTROPHILS 28.3 % (40-80); RBC 4.25 10x6/uL (4.00-5.40); RDW 16.5 % (11.5-14.5)
[2018-11-27 07:56] LABS: MCV 87.8 fL (80.0-100.0); PLATELET COUNT 53 10x3/uL (130-400)
[2018-11-27 07:58] LABS: WBC 1.4 10x3/uL (4.8-10.8)
[2018-11-27 08:10] VITALS: BP 116/76
[2018-11-27 10:32] LABS: ERYTHROCYTE SEDIMENTATION RATE 13 mm/hr (0-30)
--- NOTE | 2018-11-27 13:18 | NUR ---
MIDLINE DRESSING WAS SATURATED WITH BLOOD. PLACED NEW DRESSING TO LEFT UPPER ARM MIDLINE. PT DENIES ANY NEEDS. WILL CTM.
--- NOTE | 2018-11-27 15:01 | MORECARE ---
CASE MANAGEMENT DISCHARGE SUMMARY PATIENT: CAMELIA WILLAMS UNIT: [id number] ADM DATE: 11/24/18 AGE: 53 : 65 SEX: F ROOM/BED: D.5610 AUTHOR: WILD SUTTON PHYSICIAN: REFERRING PHYSICIAN: LUPILLO CORONA MD DATE OF SERVICE: 11/27/18 Discharge Plan Patient Name: CAMELIA WILLAMS [facility] [facility] 1965 Planned Disposition: Anticipated Discharge Date: Discharge Date: Expected LOS: Initial Reviewer: [email or web address] Initial Review Date: 11/27/2018 Generated: 11/27/18 4:00 pm Comments DCP- Discharge Planning Updated by [email or web address]: Keren Mar on 11/27/18 2:[address] Patient Name: CAMELIA WILLAMS Admission Status: ER Accout number: [id number] Admission Date: 11-24-2018 : 1965 Admission Diagnosis:SEPSIS, UNSPECIFIED ORGANISM Attending: LUPILLO CORONA Current LOS: 3 Anticipated DC Date: Planned Disposition: Primary Insurance: MEDICARE A & B Discharge Planning Comments: CM MET WITH PATIENT ABOUT DC PLANNING/NEEDS. STATES WOULD LIKE INFORMATION ON COMPANIES THAT WOULD HELP WITH TAKING HER TO GET GROCERIES AND DR APPOINTMENT, ETC. CM WILL PROVIDE HER WITH A LIST OF COMPANIES. SHE HAS A WC AND [address]CP IS DR. GASTON AND PHARMACY IS [facility]. 7. Draw Frame Runner: Keren Mar Patient Name: CAMELIA WILLAMS Page [phone] at 1501 All edits/amendments must be made on the electronic document DICTATION DATE: 11/27/18 1500 COLOR SEPARATION PHOTOGRAPHER: DULCE 11/27/18 1500 RPT#: [id number] DC DATE: STATUS: ADM IN [facility] [address] [place] [address] END OF REPORT
[2018-11-27 15:20] VITALS: BP 109/67
--- NOTE | 2018-11-27 15:27 | NUR ---
I have reviewed this patient and I concur with the Shift Assessment completed by the Licensed Practical Nurse today this shift.
--- NOTE | 2018-11-27 17:47 | NUR ---
LEFT UPPER ARM MIDLINE LEAKING MODERATE AMOUNT OF SEROUSANGINOUS FLUID. STOPPED PIV AND ABX AND SALINE LOCKED MIDLINE. WILL NOTIFY VASCULAR ACCESS. WILL CTM.
[2018-11-27 20:35] VITALS: BP 93/40
[2018-11-27 23:34] VITALS: BP 84/45
--- NOTE | 2018-11-28 00:52 | NUR ---
ARINA VASCULAR NURSE AT BED SIDE TO INTERROGATE LEFT ARM MIDLINE.
--- NOTE | 2018-11-28 01:30 | NUR ---
MIDLINE PLACED TO RIGHT UPPER ARM BY ARINA BENITEZ RN.
[2018-11-28 03:31] VITALS: BP 112/70
--- NOTE | 2018-11-28 04:00 | NUR ---
I have reviewed this patient and I concur with the Shift Assessment completed by the Licensed Practical Nurse today this shift.
[2018-11-28 06:02] LABS: ANION GAP 11.1 mmol/L (8-16); CALCIUM 7.9 mg/dL (8.5-10.1); CARBON DIOXIDE 28.1 mmol/L (21.0-32.0)
[2018-11-28 06:03] LABS: CREATININE - SERUM 0.9 mg/dL (0.6-1.3); POTASSIUM - SERUM 3.2 mmol/L (3.5-5.1)
[2018-11-28 06:28] LABS: BASOPHILS 1.6 % (0-2); EOSINOPHILS 1.6 % (0-7); HEMATOCRIT 37.7 % (36.0-48.0); HEMOGLOBIN 12.6 g/dL (12-16); IMMATURE GRANULOCYTES 1.1 % (0-5); LYMPHOCYTES 39.3 % (15-50); MCH 28.4 pg (26.0-34.0); MCHC 33.4 g/dL (31.0-37.0); MCV 84.9 fL (80.0-100.0); MEAN PLATELET VOLUME 11.3 fL (7.4-10.4); MONOCYTES 11.5 % (2-11); NEUTROPHILS 44.9 % (40-80); PLATELET COUNT 55 10x3/uL (130-400); RBC 4.44 10x6/uL (4.00-5.40); RDW 16.3 % (11.5-14.5); WBC 4.4 10x3/uL (4.8-10.8)
[2018-11-28 07:11] LABS: PLATELET ESTIMATE DECREASED
[2018-11-28 08:33] VITALS: BP 105/55
[2018-11-28 12:06] VITALS: BP 110/58
[2018-11-28 15:00] VITALS: BP 106/51
--- NOTE | 2018-11-28 17:35 | NUR ---
ALERT AND ORIENTED X4. SITTING UP IN BED EATING. DENIES ANY NEEDS AT THIS TIME. CONTINUE PLAN OF CARE AND SAFETY PRECAUTIONS.
--- NOTE | 2018-11-28 19:45 | NUR ---
ASSISTED WITH NEEDS AT THIS TIME PT ON LEFT SIDE AND SKIN WARM AND DRY BED LOW AND LOCKED AND CALL LIGHT IS IN REACH
[2018-11-28 20:00] VITALS: BP 115/59
[2018-11-29] VITALS (7 sets, daily range): BP systolic 76–126; BP diastolic 32–70; Ht 160 cm; Wt 122.7 kg
[2018-11-29 06:14] LABS: HEMATOCRIT 34.4 % (36.0-48.0); HEMOGLOBIN 11.4 g/dL (12-16); MCH 28.1 pg (26.0-34.0); MCHC 33.1 g/dL (31.0-37.0); MCV 84.9 fL (80.0-100.0); MEAN PLATELET VOLUME 11.1 fL (7.4-10.4); RBC 4.05 10x6/uL (4.00-5.40); RDW 16.2 % (11.5-14.5)
[2018-11-29 06:35] LABS: CALC OSMOLALITY 287 mosm/kg (275-300); CARBON DIOXIDE 33.5 mmol/L (21.0-32.0); CHLORIDE - SERUM 109 mmol/L (98-107); CREATININE - SERUM 0.8 mg/dL (0.6-1.3); GLUCOSE 93 mg/dL (74-106); POTASSIUM - SERUM 3.3 mmol/L (3.5-5.1); SODIUM 146 mmol/L (136-145); UREA NITROGEN 5 mg/dL (7-18); eGFR NON AFRICAN AMERICAN 79 mL/min (90-120)
[2018-11-29 06:47] LABS: PLATELET COUNT 46 10x3/uL (130-400)
--- NOTE | 2018-11-29 07:30 | NUR ---
PT RESTING IN BED, SHIFT ASSESSMENT PERFORMED. DENIES ANY NEEDS AT THIS TIME, WILL CONT TO FOLLOW POC
--- NOTE | 2018-11-29 08:30 | NUR ---
PT DILAUDID FELL OFF MAY DUE TO 3 DAYS OLD ORDER. PT IS REQUESTING PAIN MEDICATION. PAGED CAMELIA EVERETT. NEW ORDER RECIEVED TO RESTART HER DIALAUDID
[2018-11-29 09:14] LABS: EOSINOPHILS 3 % (0-7); LYMPHOCYTES 42 % (15-50); MONOCYTES 14 % (2-11); NEUTROPHILS 39 % (40-80); PLATELET ESTIMATE DECREASED
[2018-11-29 09:15] LABS: ANISOCYTOSIS OCC
--- NOTE | 2018-11-29 16:00 | NUR ---
PT HR IS IN THE 30'S AND 40'S, SB ON THE MONITOR. PAGED CAMELIA. PT IS DISPLAYING NO S/S OF THE CONDITION. STATES SHE HAS BEEN TOLD PREVIOUSLY GIOVANNI MAY NEED A PACEMAKER. MONITOR CLOSELY. PAGED
--- NOTE | 2018-11-29 16:05 | NUR ---
CARDIAC ENZYMNES ORDERED, EKG PREFORMED. PT IS STILL AYSYMPTOMATIC. CONSULTED CARDIOLOGY PER CHANTEL DENISE.
[2018-11-29 17:56] LABS: CKMB 0.3 U/L (0.0-3.6); CREATINE KINASE 22 UL (21-215); TROPONIN-I < 0.017 ng/mL (0.000-0.060)
--- NOTE | 2018-11-29 18:51 | NUR ---
PT ON TELEMTRY, CONSTANTLY MOVING/SWEATING AND PULLING AT THEM. DIFFICCULT TO KEEP ON BUT PT VERBALILZES UNDERSTANDING OF IT'S IMPORTANCE. PT STILL ASYYMPTOMATIC OF BRADYCARIDA. NO FAMILY PRESENT AT THIS TIME.
--- NOTE | 2018-11-29 19:26 | NUR ---
PT HAD A ROOM THAT WAS IN DISARRAY I CLEANED FLOOR OF DEBRI AND EMPTIED BS COMODE AND ASSISTED [facility] COMFORT PT IS NOW HIDING HER BELONGINGS IN HER BODY FOLDS LCTA SKIN WARM AND DRY IV TO RT ARM MIDLINE
[2018-11-29 22:35] LABS: CKMB 0.1 U/L (0.0-3.6); CREATINE KINASE 28 UL (21-215); TROPONIN-I < 0.017 ng/mL (0.000-0.060)
[2018-11-30 04:00] VITALS: BP 98/59
--- NOTE | 2018-11-30 06:51 | NUR ---
I have reviewed this patient and I concur with the Shift Assessment completed by the Licensed Practical Nurse today this shift.
[2018-11-30 07:00] LABS: CALC OSMOLALITY 287 mosm/kg (275-300); CALCIUM 7.9 mg/dL (8.5-10.1); CARBON DIOXIDE 32.6 mmol/L (21.0-32.0); CHLORIDE - SERUM 109 mmol/L (98-107); CKMB 0.2 U/L (0.0-3.6); CREATINE KINASE 25 UL (21-215); CREATININE - SERUM 0.8 mg/dL (0.6-1.3); GLUCOSE 94 mg/dL (74-106); POTASSIUM - SERUM 3.3 mmol/L (3.5-5.1); SODIUM 146 mmol/L (136-145); TROPONIN-I < 0.017 ng/mL (0.000-0.060); UREA NITROGEN 5 mg/dL (7-18); eGFR NON AFRICAN AMERICAN 79 mL/min (90-120)
[2018-11-30 07:42] LABS: BASOPHILS 0.9 % (0-2); EOSINOPHILS 4.4 % (0-7); HEMATOCRIT 33.4 % (36.0-48.0); IMMATURE GRANULOCYTES 0.3 % (0-5); LYMPHOCYTES 46.8 % (15-50); MCH 28.1 pg (26.0-34.0); MCHC 32.9 g/dL (31.0-37.0); MCV 85.4 fL (80.0-100.0); MONOCYTES 8.5 % (2-11); NEUTROPHILS 39.1 % (40-80); PLATELET COUNT 59 10x3/uL (130-400); RBC 3.91 10x6/uL (4.00-5.40); RDW 16.3 % (11.5-14.5); WBC 3.4 10x3/uL (4.8-10.8)
[2018-11-30 08:02] VITALS: BP 112/72
[2018-11-30 08:59] LABS: PLATELET ESTIMATE DECREASED
[2018-11-30 11:19] VITALS: BP 139/83
[2018-11-30 13:09] LABS: ANA REFLEX - DIRECT Negative (Negative)
[2018-11-30 15:08] VITALS: BP 94/49
--- NOTE | 2018-11-30 17:12 | MORECARE ---
CASE MANAGEMENT DISCHARGE SUMMARY PATIENT: CAMELIA WILLAMS UNIT: [id number] ADM DATE: 11/24/18 AGE: 53 : 65 SEX: F ROOM/BED: D.2131 AUTHOR: WILD SUTTON PHYSICIAN: REFERRING PHYSICIAN: LUPILLO CORONA MD DATE OF SERVICE: 11/30/18 Discharge Plan Patient Name: CAMELIA WILLAMS [facility] : 1965 Planned Disposition: Home Anticipated Discharge Date: Discharge Date: Expected LOS: Initial Reviewer: [id number] Initial Review Date: 11/27/2018 Generated: 11/30/18 6:12 pm Comments DCP- Discharge Planning Updated by [email or web address]: Keren Mar on 11/27/18 2:[address] Patient Name: CAMELIA WILLAMS Admission Status: ER Accout number: [id number] Admission Date: 11-24-2018 : 1965 Admission Diagnosis:SEPSIS, UNSPECIFIED ORGANISM Attending: LUPILLO CORONA Current LOS: 3 Anticipated DC Date: Planned Disposition: Primary Insurance: MEDICARE A & B Discharge Planning Comments: CM MET WITH PATIENT ABOUT DC PLANNING/NEEDS. STATES WOULD LIKE INFORMATION ON COMPANIES THAT WOULD HELP WITH TAKING HER TO GET GROCERIES AND DR APPOINTMENT, ETC. CM WILL PROVIDE HER WITH A LIST OF COMPANIES. SHE HAS A WC AND 02 AT HOME. PCP IS DR. GASTON AND PHARMACY IS [facility] [address] Regulatory Affairs Manager: Keren Beckford DP export: 11/27/18 2:01 p Patient Name: CAMELIA WILLAMS Page 16956 at 1712 All edits/amendments must be made on the electronic document DICTATION DATE: 11/30/181711 SOILED LINEN DISTRIBUTOR: DULCE 11/30/181711 RPT#: [id number] DC DATE: STATUS: ADM IN [facility] [address] [place] [address] END OF REPORT
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
--- NOTE | 2018-11-30 19:48 | NUR ---
CONTINUES AT REST WITH EYES CLOSED SKIN WARM AND DRY WITH RESP EVEN AND UNLABERED WILL ALLOW TO REST AT THIS TIME BED IS LOW AND LOCKED AND CALL LIGHT IS IN REACH
[2018-12-01] VITALS: BP 88/64
[2018-12-01 04:30] VITALS: BP 117/59
[2018-12-01 07:56] VITALS: BP 102/45
[2018-12-01 11:19] LABS: HEMATOCRIT 34.1 % (36.0-48.0); HEMOGLOBIN 10.9 g/dL (12-16); MCH 28.1 pg (26.0-34.0); MEAN PLATELET VOLUME 11.1 fL (7.4-10.4); RBC 3.88 10x6/uL (4.00-5.40); RDW 16.5 % (11.5-14.5); WBC 2.7 10x3/uL (4.8-10.8)
[2018-12-01 11:22] LABS: MCV 87.9 fL (80.0-100.0); PLATELET COUNT 72 10x3/uL (130-400)
[2018-12-01 11:23] LABS: ALBUMIN 1.8 g/dL (3.4-5.0); ALKALINE PHOSPHATASE 94 U/L (46-116); ALT (SGPT) 17 U/L (10-68); BILIRUBIN - TOTAL 0.18 mg/dL (0.2-1.3); CALC OSMOLALITY 288 mosm/kg (275-300); CALCIUM 7.8 mg/dL (8.5-10.1); CARBON DIOXIDE 35.8 mmol/L (21.0-32.0); CHLORIDE - SERUM 109 mmol/L (98-107); CREATININE - SERUM 0.8 mg/dL (0.6-1.3); GLUCOSE 85 mg/dL (74-106); POTASSIUM - SERUM 3.5 mmol/L (3.5-5.1); PROTEIN - SERUM 5.1 g/dL (6.4-8.2); SODIUM 147 mmol/L (136-145); UREA NITROGEN 6 mg/dL (7-18); eGFR NON AFRICAN AMERICAN 79 mL/min (90-120)
[2018-12-01 11:26] VITALS: BP 115/75
[2018-12-01 13:45] VITALS: BP 108/67
--- NOTE | 2018-12-01 13:54 | NUR ---
Nutrition Follow-up: Pt asleep on multiple visit attempts. Chart reviewed. Diet: Cardiac PO intake: 84% avg x 7 meals Wt: 272# Last BM: 11/30 Labs reviewed Meds reviewed Continue current diet as tolerated. [place] food preferences within diet restrictions. RD following.
[2018-12-01 14:09] LABS: RMSF IGM 0.52 index (0.00-0.89)
[2018-12-01 14:16] LABS: ANISOCYTOSIS OCC; EOSINOPHILS 1 % (0-7); LYMPHOCYTES 51 % (15-50); MONOCYTES 16 % (2-11); NEUTROPHILS 32 % (40-80); PLATELET ESTIMATE DECREASED; ROULEAUX OCC; SPHEROCYTES OCC
--- NOTE | 2018-12-01 17:59 | NUR ---
DRSG CHANGED TO SITE.
--- NOTE | 2018-12-01 19:58 | NUR ---
PATIENT IN BED RESTING WITH NO NEEDS NOTED OR STATED. ALERT AND ORENTED ABLE TO VOICE NEEDS AND WANTS TO STAFF. CALL LIGHT AND WATER IN REACH. BED LOW. LEFT UPER ARM MIDLINE IN TACT. WITH LR AT 125ML/HR.
[2018-12-01 20:00] VITALS: BP 100/62
[2018-12-02] VITALS: BP 104/60
[2018-12-02 04:30] VITALS: BP 106/44
[2018-12-02 05:42] LABS: BASOPHILS 0.3 % (0-2); EOSINOPHILS 5.8 % (0-7); HEMATOCRIT 38.5 % (36.0-48.0); HEMOGLOBIN 12.4 g/dL (12-16); MCHC 32.2 g/dL (31.0-37.0); MCV 86.9 fL (80.0-100.0); MEAN PLATELET VOLUME 10.6 fL (7.4-10.4); MONOCYTES 13.3 % (2-11); NEUTROPHILS 21.6 % (40-80); RBC 4.43 10x6/uL (4.00-5.40); RDW 16.3 % (11.5-14.5); WBC 2.9 10x3/uL (4.8-10.8)
[2018-12-02 05:47] LABS: PLATELET COUNT 103 10x3/uL (130-400)
[2018-12-02 05:52] LABS: ALBUMIN 2.1 g/dL (3.4-5.0); ANION GAP 10.4 mmol/L (8-16); BILIRUBIN - TOTAL 0.27 mg/dL (0.2-1.3); CARBON DIOXIDE 31.5 mmol/L (21.0-32.0); CREATININE - SERUM 0.9 mg/dL (0.6-1.3); MAGNESIUM - SERUM 1.5 mg/dL (1.8-2.4); POTASSIUM - SERUM 3.9 mmol/L (3.5-5.1)
[2018-12-02 05:53] LABS: PROTEIN - SERUM 6.4 g/dL (6.4-8.2)
--- NOTE | 2018-12-02 07:15 | NUR ---
REPORT RECEIVED. WILL CONTINUE WITH POC. PT CURRENTLY LYING ON LEFT SIDE. CALL LIGHT W/I REACH. PT IS AAO AND UP AD HOLLIS. RR EVEN AND UNLABORED ON RA. LR INFUSING @125ML/HR VIA L.ARM MIDLINE. PT DENIES ANY NEEDS AT THIS TIME. NO S/S OF DISTRESS NOTED. WILL CTM.
[2018-12-02 08:00] VITALS: BP 113/65
--- NOTE | 2018-12-02 10:42 | NUR ---
PT HAS SOME MILDLY SLURRED SPEECH. PERFORMED COMPLETE NEURO CHECK. PERRLA. NURSING CLERK ARE EQUAL AND STRONG BILATERALLY WELL MUSCLE STRENGTH. SENSES IN CHECK. PT REPORTS OF FEELING TIRED AND REQUESTED TO CHECK BP. BP WAS CHECKED IN LEFT ARM AND RECORDED 104/69. PT DENIES ANY FURTHER NEEDS. WILL CTM.
--- NOTE | 2018-12-02 12:34 | NUR ---
I have reviewed this patient and I concur with the Shift Assessment completed by the Licensed Practical Nurse today this shift.
[2018-12-02 12:45] VITALS: BP 120/65
[2018-12-02 16:58] VITALS: BP 110/62
[2018-12-02 20:00] VITALS: BP 100/52
--- NOTE | 2018-12-02 20:43 | NUR ---
HS MEDS GIVEN WITH FRESH ICE WATER. PT DENIES PAIN OR NEEDS. BED LOW, CL IN REACH.
--- NOTE | 2018-12-02 21:04 | NUR ---
NOTIFIED BY SAFETY PHYSICIAN THAT PT HAD FALLEN, ENTERED ROOM, PT SITTING UP IN FLOOR. PT STATED THAT SHE WAS ATTEMPTING TO GET BACK TO BED FROM BSC AND LOST HER BALANCE. NO SWELLING OR BLEEDING NOTED, PT DOES COMPLAIN OF LEFT SHOULDER AND HIP PAIN DUE TO THIS FALL. CODE MUSCLE CALLED, ASSISTED PT BACK TO BED. BED ALARM IN USE. INFORMED PT TO CALL FOR ASSISTANCE WHEN NEEDING TO GET UP. PT STATED UNDERSTANDING. MORIS SUPPERVISOR AND JOSE NAM APN NOTIFIED.
[2018-12-03] VITALS (10 sets, daily range): BP systolic 101–123; BP diastolic 45–81
--- NOTE | 2018-12-03 02:21 | NUR ---
RESTING WITH EYES CLOSED, RESPERATIONS EVEN, NO S/S DISTRESS NOTED.
--- NOTE | 2018-12-03 05:29 | NUR ---
I have reviewed this patient and I concur with the Shift Assessment completed by the Licensed Practical Nurse today this shift.
[2018-12-03 06:44] LABS: INR 1.35 (0.85-1.17); PROTIME 16.1 SECONDS (11.6-15.0)
[2018-12-03 06:59] LABS: BASOPHILS 0.3 % (0-2); EOSINOPHILS 6.6 % (0-7); HEMOGLOBIN 10.8 g/dL (12-16); LYMPHOCYTES 53.1 % (15-50); MCH 28.2 pg (26.0-34.0); MCHC 32.7 g/dL (31.0-37.0); MCV 86.2 fL (80.0-100.0); MEAN PLATELET VOLUME 10.8 fL (7.4-10.4); MONOCYTES 13.1 % (2-11); NEUTROPHILS 26.9 % (40-80); PLATELET COUNT 95 10x3/uL (130-400); RBC 3.83 10x6/uL (4.00-5.40); WBC 2.9 10x3/uL (4.8-10.8)
[2018-12-03 07:03] LABS: ALBUMIN 1.8 g/dL (3.4-5.0); ANION GAP 7.7 mmol/L (8-16); BILIRUBIN - TOTAL 0.28 mg/dL (0.2-1.3); CALCIUM 7.8 mg/dL (8.5-10.1); CREATININE - SERUM 0.9 mg/dL (0.6-1.3); MAGNESIUM - SERUM 1.6 mg/dL (1.8-2.4); POTASSIUM - SERUM 3.7 mmol/L (3.5-5.1); PROTEIN - SERUM 5.6 g/dL (6.4-8.2)
[2018-12-03 07:58] LABS: PLATELET ESTIMATE DECREASED
--- NOTE | 2018-12-03 09:53 | NUR ---
AM MEDICATIONS ADMINISTERED ALONG WITH ORDERED DOSE OF DILUADID. VS SET TO Q15MIN. VSS AND WNL. PT DENIES ANY NEEDS. PT WILL BE ON BEDREST WITH BATHROOM PRIVELAGES. WILL CTM.
[2018-12-03 13:10] LABS: HGE IGM TITER Negative (Neg:<1:20)
--- NOTE | 2018-12-03 15:13 | NUR ---
I have reviewed this patient and I concur with the Shift Assessment completed by the Licensed Practical Nurse today this shift.
--- NOTE | 2018-12-04 00:38 | NUR ---
INITIAL ROUNDS COMPLETED AT 1915 HRS. PT DENIED ANY DISCOMFORT. ASSESSMENT COMPLETED AT 2019 HRS. VSS. SR PER CM HR 61. ALERT AND ORIENTED TO PERSON, PLACE AND TIME. NESBITT. BRUISES NOTED TO BILAT ARMS. MIDLINE CATHETER TO UPPER R ARM WITH LR AT 30CC/HR. IV PATENT. LUNGS DIMINISHED IN BASES BILAT. PM MEDS GIVEN. PM SNACK SERVED. PT INCONTNENT OF URINE AT 2230 HRS. INCONTINENT CARE DONE. DILAUDID 1MG SIVP GIVEN AT 2330 HRS. FOR C/O BACKPAIN. PT CURRENTLY RESTING WITH EYES CLOSED. RESP EVEN AND REGULAR. SR UP X2,CALL LIGHT WITHIN REACH.
--- NOTE | 2018-12-04 02:15 | NUR ---
PT URINNATED ON BED AND FLOOR. PT, BED AND FLOOR CLEANED. NEW LINENS PLACED. ASSISTED PT BACK TO BED. SR UP X2, CALL LIGHT WITHIN REACH AND BED ALARM ON.
--- NOTE | 2018-12-04 03:59 | NUR ---
PT RESTING WITH EYES CLOSED. RESP EVEN AND REGULAR. SR UP X2, CALL LIGHT WITHIN REACH AND BED ALARM ON.
[2018-12-04 05:53] LABS: BASOPHILS 0.1 % (0-2); EOSINOPHILS 2.9 % (0-7); HEMATOCRIT 38.9 % (36.0-48.0); HEMOGLOBIN 12.4 g/dL (12-16); IMMATURE GRANULOCYTES 0.3 % (0-5); LYMPHOCYTES 23.7 % (15-50); MCH 27.9 pg (26.0-34.0); MCHC 31.9 g/dL (31.0-37.0); MCV 87.4 fL (80.0-100.0); MEAN PLATELET VOLUME 10.5 fL (7.4-10.4); MONOCYTES 7.5 % (2-11); NEUTROPHILS 65.5 % (40-80); RBC 4.45 10x6/uL (4.00-5.40); RDW 16.1 % (11.5-14.5)
[2018-12-04 05:59] LABS: PLATELET COUNT 116 10x3/uL (130-400); WBC 7.8 10x3/uL (4.8-10.8)
--- NOTE | 2018-12-04 06:08 | NUR ---
VSS THROUGHOUT NIGHT. SR PER CM. PT STATED DILAUDID IV CONTROLLED HER BACK PAIN. INCONTNENT OF URINE X2. NEEDS MET; WILL CONTINUE TO MONITOR.
[2018-12-04 06:34] LABS: ALBUMIN 2.2 g/dL (3.4-5.0); ALKALINE PHOSPHATASE 136 U/L (46-116); ALT (SGPT) 23 U/L (10-68); BILIRUBIN - TOTAL 0.29 mg/dL (0.2-1.3); CALC OSMOLALITY 283 mosm/kg (275-300); CALCIUM 8.3 mg/dL (8.5-10.1); CARBON DIOXIDE 34.3 mmol/L (21.0-32.0); CHLORIDE - SERUM 104 mmol/L (98-107); CREATININE - SERUM 0.7 mg/dL (0.6-1.3); GLUCOSE 80 mg/dL (74-106); MAGNESIUM - SERUM 1.7 mg/dL (1.8-2.4); POTASSIUM - SERUM 4.1 mmol/L (3.5-5.1); PROTEIN - SERUM 6.5 g/dL (6.4-8.2); SODIUM 144 mmol/L (136-145); UREA NITROGEN 7 mg/dL (7-18); eGFR NON AFRICAN AMERICAN > 90 mL/min (90-120)
--- NOTE | 2018-12-04 06:39 | NUR ---
SPOKE WITH Franklin BUI APN REGARDING K+ 6.6. ORDERS TO REDRAW. LAB NOTIFIED.
--- NOTE | 2018-12-04 07:37 | NUR ---
PT UP TO BEDSIDE COMMODE BY HERSELF. STATED SHE DID NOT WANT TO WAIT FOR ANYONE TO GET THERE BEFORE SHE GOT UP TO USE BATHROOM. SHEETS SOILED FROM URINE. WENT IN TO CHANGE LINEN AND PT STATED SHE WANTED TO WAIT FOR HER SHOWER BEFORE SHEETS CHANGED. ALERT AND ORIENTED. RR EVEN AND UNLABORED. DENIES NEEDS AT THIS TIME. WILL CONTINUE TO MONITOR.
[2018-12-04 08:45] VITALS: BP 100/55
[2018-12-04 12:39] VITALS: BP 104/72
--- NOTE | 2018-12-04 15:15 | NUR ---
I have reviewed this patient and I concur with the Shift Assessment completed by the Licensed Practical Nurse today this shift.
--- NOTE | 2018-12-04 15:48 | NUR ---
PT IN SHOWER CURRENTLY.
--- NOTE | 2018-12-04 15:59 | NUR ---
REPORT GIVEN TO LILIAM MORTON
[2018-12-04 16:45] VITALS: BP 130/72
--- NOTE | 2018-12-04 17:19 | NUR ---
WITHOUT DISTRESS NOTED AT THIS TIME.
[2018-12-04 21:31] VITALS: BP 145/70
--- NOTE | 2018-12-04 22:27 | NUR ---
INITIAL ROUNDS COMPLETED AT 1920 HRS. PT RESTING WITH EYES CLOSED. RESP EVEN AND REGULAR. ASSESSMENT COMPLETED AT 1950 HRS. VSS. SR PER CM HR 62. ALERT AND ORIENTED TO PERSON, PLACE AND TIME. NESBITT. BRUISES NOTED TO BILAT ARMS. DRESSING TO LOWER L BACK CLEAN, DRY AND INTACT. LUNGS DIMINISHED IN BASES BILAT. UPPER R ARM MIDLINE WITH LR AT 30CC/HR. IV PATENT. DILAUDID 1MG SIVP GIVEN AT 2005 HOR C/O BACK PAIN. PT UP TO BSC. GAIT STEADY PT INCONTINENT WHILE GOING TO BSC. FLOOR CLEANED. ASSISTED PT BACK TO BED. PM MEDS GIVEN. PM SNACKS GIVEN PER REQUEST. PT CURRENTLY RESTING WITH EYES CLOSED. RESP EVEN AND REGULAR. SR UP X2,CALL LIGHT WITHIN REACH AND BED ALARM ON.
--- NOTE | 2018-12-05 00:09 | NUR ---
PT RESTING WITH EYES CLOSED. RESP EVEN AND REGULAR. SR UP X2, CALL LIGHT WITHIN REACH.
[2018-12-05 01:07] VITALS: BP 135/66
--- NOTE | 2018-12-05 02:48 | NUR ---
PT RESTING WITH EYES CLOSED. RESP EVEN AND REGULAR. SR UP X2, CALL LIGHT WITHIN REACH.
--- NOTE | 2018-12-05 04:34 | NUR ---
O2 SAT 91-92% ON 2LNC. DENIES ANY DISCOMFORT. SR UP X2, CALL LIGHT WITHIN REACH AND BED ALARM ON.
[2018-12-05 04:36] VITALS: BP 110/54
[2018-12-05 06:43] LABS: BASOPHILS 0.2 % (0-2); EOSINOPHILS 3.9 % (0-7); HEMATOCRIT 32.1 % (36.0-48.0); HEMOGLOBIN 10.4 g/dL (12-16); IMMATURE GRANULOCYTES 0.3 % (0-5); LYMPHOCYTES 31.5 % (15-50); MCH 28.3 pg (26.0-34.0); MCHC 32.4 g/dL (31.0-37.0); MCV 87.5 fL (80.0-100.0); MEAN PLATELET VOLUME 10.8 fL (7.4-10.4); NEUTROPHILS 57.1 % (40-80); RBC 3.67 10x6/uL (4.00-5.40); RDW 16.2 % (11.5-14.5); WBC 6.4 10x3/uL (4.8-10.8)
[2018-12-05 06:44] LABS: PLATELET COUNT 91 10x3/uL (130-400)
[2018-12-05 07:12] LABS: ALBUMIN 1.8 g/dL (3.4-5.0); ALKALINE PHOSPHATASE 113 U/L (46-116); ALT (SGPT) 25 U/L (10-68); BILIRUBIN - TOTAL 0.27 mg/dL (0.2-1.3); CALC OSMOLALITY 288 mosm/kg (275-300); CALCIUM 7.9 mg/dL (8.5-10.1); CARBON DIOXIDE 36.1 mmol/L (21.0-32.0); CHLORIDE - SERUM 106 mmol/L (98-107); CREATININE - SERUM 0.7 mg/dL (0.6-1.3); GLUCOSE 97 mg/dL (74-106); MAGNESIUM - SERUM 1.8 mg/dL (1.8-2.4); POTASSIUM - SERUM 4.3 mmol/L (3.5-5.1); PROTEIN - SERUM 5.5 g/dL (6.4-8.2); SODIUM 146 mmol/L (136-145); UREA NITROGEN 8 mg/dL (7-18); eGFR NON AFRICAN AMERICAN > 90 mL/min (90-120)
[2018-12-05 07:41] LABS: PLATELET ESTIMATE DECREASED
[2018-12-05 08:11] VITALS: BP 124/58
--- NOTE | 2018-12-05 10:26 | NUR ---
PATIENT SIGNED BED ALARM WAIVER. REFUSED TO HAVE BED ALARM TURNED ON. BED IS IN LOW POSITION AND CALL LIGHT IS IN REACH. LUNG SOUNDS ARE CLEAR BUT DIMINISHED. BRUISES NOTED ON BILATERAL ARMS. DISCHARGE IS IN PLACE IN THE COMPUTER.
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
[2018-12-05] MEDS ORDERED: DIFLUCAN200 MG PO (12:27)
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
--- NOTE | 2018-12-08 14:31 | EC ---
PATIENT:CAMELIA WILLAMS DATE OF SERVICE: 11/24/18 SEX: F MEDICAL RECORD: [id number] DATE OF : [birth year] LOCATION:D.M2 D.213 AGE OF PATIENT: 53 ADMISSION DATE: 11/24/18 REFERRING PHYSICIAN: INTERPRETING PHYSICIAN: CHELSI SOLIS MD ECHOCARDIOGRAM REPORT ECHO CHARGES 4 ECHO COMPLETE Date: 12/02/18 CLINICAL DIAGNOSIS: DYSPBEAAM BRADYCARDIA/TICK FEVER ECHOCARDIOGRAPHIC MEASUREMENTS (adult normal given) AC root (d.<3.7cm) 2.3 cm LV Septum d (<1.2 cm> 0.90 cm Valve Excursion 1.6 cm LV Septum (systole) 1.2 cm Left Atria (s.<4.0cm> 4.3 cm LVPW d(<1.2cm) 1.2 cm RV (d.<2.3cm) 4.0 cm LVPW (sytole) 1.4 cm LV diastole(<5.6CM) 5.5 cm MV E-F(>70mm/sec) cm LV systole 4.0 cm LVOT Diameter 1.9 cm MV exc.(>10mm) 1.3 cm Est.ejection fraction (50-75%) % DOPPLER: LVIT cm/sec A 95.0 cm/sec E 115 cm/sec LA cm/sec RVSP 43 mmHg LVOT 132 cm/sec AOP1/2T m/s Asc. Ao 165 cm/sec RVOT 59 cm/sec RA cm/sec PA 103 cm/sec AV Gradient Peak 10.84mmHg AV Mean 5.85 mmHg AV Area 2.6 cm MV Gradient Peak 8.85 mmHg MV Mean 2.09 mmHg MV Area cm COMMENTS: Sewer Line Photo Inspector: Bala AGUILA Procurement Consultant: 2 Dr. Barajas TAPE# PACS Pericardial Effusion N DATE OF SERVICE: 12/02/2018 FINDINGS: 1. Left ventricular chamber size is within normal limits. Left ventricular systolic function is normal. Overall ejection fraction estimated at 55% to 60%. 2. Left atrium is enlarged at 4.3 cm. Right atrium and right ventricular chamber sizes are mildly dilated as well. 3. Valvular structures have normal structure and motion. No evidence of vegetative endocarditis. 4. Doppler interrogation reveals trace mitral regurgitation, mild tricuspid ECHOCARDIOGRAM REPORT [id number] CAMELIA WILLAMS regurgitation, no other valvular insufficiency or stenosis. 5. No evidence of pericardial effusion or left ventricular thrombus. TRANSINT:[id number] Voice Confirmation ID: [id number] DOCUMENT ID: [id number] CHELSI SOLIS MD at 1431 CC: [id number] DICTATION DATE: 12/03/18 0209 TRAFFIC WORKFORCE REPRESENTATIVE: 12/03/18 0652 DIS IN 12/05/18 [place] [id number]
== END 2018-12-05 14:34 | disposition home or self-care (01) | DRG 872 ==
LOC: D.ER 15:30 → D.M2 18:00
PROVIDERS: Family Medicine; Family Medicine Adult Medicine; Internal Medicine Hematology & Oncology; Radiology Diagnostic Radiology; ADMIT Internal Medicine Nephrology; ATTEND Internal Medicine Nephrology
PROC: 05HF33Z Insertion of Infusion Device into Left Cephalic Vein, Percutaneous Approach (ICD-10-PCS; principal; 2018-11-26)
PROC: B54NZZA Ultrasonography of Left Upper Extremity Veins, Guidance (ICD-10-PCS; 2018-11-26)
PROC: 05HB33Z Insertion of Infusion Device into Right Basilic Vein, Percutaneous Approach (ICD-10-PCS; 2018-11-28)
PROC: B54MZZA Ultrasonography of Right Upper Extremity Veins, Guidance (ICD-10-PCS; 2018-11-28)
PROC: 07DR3ZX Extraction of Iliac Bone Marrow, Percutaneous Approach, Diagnostic (ICD-10-PCS; 2018-12-03)
DX: A41.9 Sepsis, unspecified organism (principal); N39.0 Urinary tract infection, site not specified; N12 Tubulo-interstitial nephritis, not specified as acute or chronic; E87.1 Hypo-osmolality and hyponatremia; F17.213 Nicotine dependence, cigarettes, with withdrawal; Z68.43 Body mass index [BMI] 50.0-59.9, adult; J44.1 Chronic obstructive pulmonary disease with (acute) exacerbation; D61.818 Other pancytopenia; A77.0 Spotted fever due to Rickettsia rickettsii; R16.1 Splenomegaly, not elsewhere classified; E87.6 Hypokalemia; J44.9 Chronic obstructive pulmonary disease, unspecified; F32.9 Major depressive disorder, single episode, unspecified; F41.9 Anxiety disorder, unspecified; E66.01 Morbid (severe) obesity due to excess calories; I50.9 Heart failure, unspecified; Z86.73 Personal history of transient ischemic attack (TIA), and cerebral infarction without residual deficits; D75.82 Heparin induced thrombocytopenia (HIT)

== ENCOUNTER 2018-12-15 14:00 | Emergency (ER) | payer MEDICARE ==
[~2018-12-15] VITALS: Ht 160 cm; Wt 124.7 kg
[~2018-12-15 14:00] MED LIST changes: +DIFLUCAN200 MG PO; +SEREVENT INH; +ULTRAM50 MG PO
[2018-12-15 14:07] VITALS: Ht 160 cm; Wt 124.7 kg
[2018-12-15 18:29] LABS: BASOPHILS 0.2 % (0-2); EOSINOPHILS 9.2 % (0-7); HEMATOCRIT 39.8 % (36.0-48.0); HEMOGLOBIN 13.2 g/dL (12-16); IMMATURE GRANULOCYTES 0.2 % (0-5); LYMPHOCYTES 31.1 % (15-50); MCHC 33.2 g/dL (31.0-37.0); MCV 87.5 fL (80.0-100.0); MONOCYTES 4.8 % (2-11); NEUTROPHILS 54.5 % (40-80); RBC 4.55 10x6/uL (4.00-5.40); RDW 17.3 % (11.5-14.5); WBC 5.2 10x3/uL (4.8-10.8)
[2018-12-15 18:33] LABS: PLATELET COUNT 167 10x3/uL (130-400)
[2018-12-15 18:34] LABS: APPEARANCE HAZY (CLEAR); BILIRUBIN NEGATIVE (NEGATIVE); COLOR YELLOW (YELLOW); GLUCOSE NEGATIVE (NEGATIVE); KETONE NEGATIVE (NEGATIVE); NITRITE POSITIVE (NEGATIVE); PROTEIN TRACE mg/dL (NEGATIVE); SPECIFIC GRAVITY 1.015 (1.005-1.020); UROBILINOGEN NORMAL (NORMAL)
[2018-12-15 18:35] LABS: BACTERIA MANY /hpf (NEGATIVE); EPITHELIAL CELLS 0-5 /hpf (0-5); RED CELLS - URINE 0-5 /hpf (0-5); WHITE CELLS - URINE >50 /hpf (NEGATIVE)
[2018-12-15 18:42] LABS: ALBUMIN 2.8 g/dL (3.4-5.0); ALKALINE PHOSPHATASE 102 U/L (46-116); ALT (SGPT) 23 U/L (10-68); BILIRUBIN - TOTAL 0.36 mg/dL (0.2-1.3); CALC OSMOLALITY 285 mosm/kg (275-300); CALCIUM 8.5 mg/dL (8.5-10.1); CHLORIDE - SERUM 106 mmol/L (98-107); CREATININE - SERUM 0.8 mg/dL (0.6-1.3); GLUCOSE 84 mg/dL (74-106); POTASSIUM - SERUM 3.4 mmol/L (3.5-5.1); PROTEIN - SERUM 7.4 g/dL (6.4-8.2); SODIUM 145 mmol/L (136-145); UREA NITROGEN 6 mg/dL (7-18); eGFR NON AFRICAN AMERICAN 79 mL/min (90-120)
[2018-12-15] MEDS ORDERED: DOXYCYCLINE HY100 M2 PO (20:15)
[2018-12-15] MEDS ORDERED: DIFLUCAN200 MG PO (20:15)
[2018-12-15 21:05] VITALS: BP 144/79
== END 2018-12-15 21:05 | disposition home or self-care (01) ==
LOC: D.ER 14:00
PROVIDERS: Emergency Medicine
DX: N39.0 Urinary tract infection, site not specified (principal); Z86.73 Personal history of transient ischemic attack (TIA), and cerebral infarction without residual deficits; I50.9 Heart failure, unspecified; F32.9 Major depressive disorder, single episode, unspecified; F17.210 Nicotine dependence, cigarettes, uncomplicated

== ENCOUNTER 2018-12-27 16:39 | Inpatient (IN) | payer MEDICARE ==
[~2018-12-27] VITALS: Ht 160 cm; Wt 118.8 kg
[2018-12-27] MEDS ORDERED: MACROBID100 MG PO (17:02)
[2018-12-27 21:28] LABS: APPEARANCE CLEAR (CLEAR); BILIRUBIN NEGATIVE (NEGATIVE); COLOR YELLOW (YELLOW); GLUCOSE NEGATIVE (NEGATIVE); KETONE NEGATIVE (NEGATIVE); NITRITE NEGATIVE (NEGATIVE); PROTEIN NEGATIVE (NEGATIVE); UROBILINOGEN NORMAL (NORMAL)
[2018-12-27 21:29] LABS: BACTERIA FEW /hpf (NEGATIVE); EPITHELIAL CELLS 0-5 /hpf (0-5); RED CELLS - URINE OCC /hpf (0-5); WHITE CELLS - URINE 0-5 /hpf (NEGATIVE)
[2018-12-27 22:17] LABS: BASOPHILS 0.3 % (0-2); EOSINOPHILS 23.8 % (0-7); HEMATOCRIT 40.4 % (36.0-48.0); HEMOGLOBIN 13.3 g/dL (12-16); IMMATURE GRANULOCYTES 0.1 % (0-5); LYMPHOCYTES 29.4 % (15-50); MCH 30.2 pg (26.0-34.0); MCHC 32.9 g/dL (31.0-37.0); MCV 91.6 fL (80.0-100.0); MEAN PLATELET VOLUME 9.9 fL (7.4-10.4); MONOCYTES 5.6 % (2-11); NEUTROPHILS 40.8 % (40-80); RBC 4.41 10x6/uL (4.00-5.40); WBC 7.4 10x3/uL (4.8-10.8)
[2018-12-27 22:19] LABS: APTT 34.9 SECONDS (22.8-39.4); INR 1.23 (0.85-1.17); PROTIME 14.9 SECONDS (11.6-15.0)
[2018-12-27 22:22] LABS: PLATELET COUNT 207 10x3/uL (130-400)
[2018-12-27 22:40] LABS: ALBUMIN 2.9 g/dL (3.4-5.0); ALKALINE PHOSPHATASE 111 U/L (46-116); ALT (SGPT) 16 U/L (10-68); BILIRUBIN - TOTAL 0.33 mg/dL (0.2-1.3); CALC OSMOLALITY 278 mosm/kg (275-300); CALCIUM 8.6 mg/dL (8.5-10.1); CARBON DIOXIDE 31.4 mmol/L (21.0-32.0); CHLORIDE - SERUM 104 mmol/L (98-107); GLUCOSE 93 mg/dL (74-106); POTASSIUM - SERUM 3.2 mmol/L (3.5-5.1); PROTEIN - SERUM 7.3 g/dL (6.4-8.2); SODIUM 141 mmol/L (136-145); UREA NITROGEN 7 mg/dL (7-18); eGFR NON AFRICAN AMERICAN 61 mL/min (90-120)
[2018-12-27 22:42] LABS: CKMB 0.5 U/L (0.0-3.6); CREATINE KINASE 31 UL (21-215); TROPONIN-I < 0.017 ng/mL (0.000-0.060)
--- NOTE | 2018-12-28 00:41 | NUR ---
NS CONT AT TRANSFER
--- NOTE | 2018-12-28 01:00 | NUR ---
RECIEVED TO FLOOR VIA WHEELCHAIR ACCOMPANIED BY STAFF. VS STABLE, A&O X 4. REPORTS PAIN 6/10 TO ABDOMEN AND HEADACHE. REPORTS USE OF 2L O2 VIA NASAL CANNULA AT NIGHT, SOME INCONTINENCE. DENIES NEEDS AT THIS TIME. ALLERGY BRACELET APPLIED. BEDSIDE COMMODE IN ROOM PER PT REQUEST. WILL CONTINUE TO MONITOR.
[2018-12-28 02:07] VITALS: BP 130/83; BMI 46.5
[2018-12-28 04:00] VITALS: BP 119/67
[2018-12-28 06:07] LABS: BASOPHILS 0.2 % (0-2); EOSINOPHILS 30.7 % (0-7); HEMATOCRIT 36.7 % (36.0-48.0); HEMOGLOBIN 11.7 g/dL (12-16); IMMATURE GRANULOCYTES 0.2 % (0-5); MCH 29.6 pg (26.0-34.0); MCHC 31.9 g/dL (31.0-37.0); MCV 92.9 fL (80.0-100.0); MONOCYTES 6.8 % (2-11); NEUTROPHILS 33.1 % (40-80); PLATELET COUNT 172 10x3/uL (130-400); RBC 3.95 10x6/uL (4.00-5.40); RDW 17.3 % (11.5-14.5)
[2018-12-28 06:25] LABS: ANION GAP 8.4 mmol/L (8-16); CALCIUM 8.3 mg/dL (8.5-10.1); CARBON DIOXIDE 30.3 mmol/L (21.0-32.0); CREATININE - SERUM 0.9 mg/dL (0.6-1.3); MAGNESIUM - SERUM 1.9 mg/dL (1.8-2.4); PHOSPHOROUS 5.6 mg/dL (2.5-4.9)
[2018-12-28 06:26] LABS: POTASSIUM - SERUM 3.7 mmol/L (3.5-5.1)
--- NOTE | 2018-12-28 07:05 | NUR ---
PATIENT RECIEVED FROM PREVIOUS SHIFT RESTING WITH NO NEEDS VOICED. CL IN REACH
[2018-12-28 08:47] VITALS: BP 136/81
--- NOTE | 2018-12-28 11:10 | NUR ---
MORPHINE GIVEN FOR PAIN AND REGLAN FOR NAUSEA
[2018-12-28 12:36] VITALS: BP 124/60
[2018-12-28 12:40] VITALS: BMI 46.4
[2018-12-28 16:33] VITALS: BP 109/62
--- NOTE | 2018-12-28 22:55 | NUR ---
NEW IV STARTED LT AC ATTEMPTSX2. PT TOLERATED WELL. WILL RESTART IV FLUIDS.
[2018-12-28 22:56] VITALS: BP 138/74
[2018-12-29 01:02] VITALS: BP 113/42
--- NOTE | 2018-12-29 03:07 | NUR ---
I have reviewed this patient and I concur with the Shift Assessment completed by the Licensed Practical Nurse today this shift.
--- NOTE | 2018-12-29 03:08 | NUR ---
PT ALERT AND ORIENTED. NO SIGNS OF DISTRESS. BREATHING EVEN AND UNLABORED.IV SITE LT AC DRESSING CLEAN DRY AND INTACT. NO SIGNS OF INFECTION. SKIN CLEAN DRY AND INTACT. BOWEL SOUNDS ACTIVE. LUNG SOUNDS CLEAR. NO LOWER LEG SWELLING PRESENT. WILL CONTINUE PLAN OF CARE. CALL LIGHT IN REACH. BED LOWERED AND LOCKED. BED RAILS UPX2.
[2018-12-29 04:58] VITALS: BP 154/80
[2018-12-29 07:01] LABS: BASOPHILS 0.2 % (0-2); EOSINOPHILS 28.5 % (0-7); HEMATOCRIT 37.6 % (36.0-48.0); HEMOGLOBIN 11.8 g/dL (12-16); LYMPHOCYTES 31.5 % (15-50); MCH 29.6 pg (26.0-34.0); MCHC 31.4 g/dL (31.0-37.0); MCV 94.5 fL (80.0-100.0); MEAN PLATELET VOLUME 10.2 fL (7.4-10.4); MONOCYTES 6.2 % (2-11); NEUTROPHILS 33.6 % (40-80); PLATELET COUNT 158 10x3/uL (130-400); RBC 3.98 10x6/uL (4.00-5.40); RDW 17.5 % (11.5-14.5)
[2018-12-29 07:21] LABS: ANION GAP 6.3 mmol/L (8-16); CARBON DIOXIDE 32.2 mmol/L (21.0-32.0); CREATININE - SERUM 0.9 mg/dL (0.6-1.3); PHOSPHOROUS 4.8 mg/dL (2.5-4.9)
[2018-12-29 07:22] LABS: POTASSIUM - SERUM 4.5 mmol/L (3.5-5.1)
[2018-12-29 09:03] VITALS: BP 117/70
--- NOTE | 2018-12-29 11:01 | NUR ---
PT RESTING IN BED. NO SIGNS OF DISTRESS. IV TO RIGHT AC PATENT NO REDNESS OR TENERDNESS. ON TELEMETRY 64 SR. COMPLAINS OF PAIN. MEDICATIONS GIVEN. DENIES ANY FURTHER NEED AT THIS TIME. CALL LIGHT IN REACH. BED LOW POSITION. NO FAMILY AT BEDSIDE AT THIS TIME.
[2018-12-29 12:56] VITALS: BP 123/76
[2018-12-29 16:33] VITALS: BP 123/73
--- NOTE | 2018-12-29 18:45 | NUR ---
I have reviewed this patient and I concur with the Shift Assessment completed by the Licensed Practical Nurse today this shift.
--- NOTE | 2018-12-29 19:30 | NUR ---
PT SITTING UP IN BED WITHOUT DISTRESS, AOX4. FAMILY BEDSIDE. WITHOUT IV ACCESS AT THIS TIME, WAITING FOR DR JOHNSON TO PLACE CENTRAL LINE. SUPPLIES AT BEDSIDE. TELE IN PLACE 70 SR. DENIES NEEDS AT THIS TIME. CL IN REACH, WILL CTM
[2018-12-29 20:00] VITALS: BP 139/81
--- NOTE | 2018-12-29 20:30 | NUR ---
DR JOHNSON TO BEDSIDE TO PLACE CENTRAL LINE. PLACED LINE WITHOUT DIFFICULTY. CHEST XRAY ORDERED FOR PLACEMENT. WILL CTM
[2018-12-29 20:47] VITALS: Ht 160 cm; Wt 118.8 kg
--- NOTE | 2018-12-29 21:00 | NUR ---
PT STATES PAIN "EVERYWHERE" BUT SPECIFICALLY IN NECK WHERE CENTRAL LINE WAS PLACED. GAVE PERCOCET ORDERED. WILL CTM
--- NOTE | 2018-12-29 22:00 | NUR ---
XRAY CAME BACK SHOWING CENTRAL LINE WAS NOT IN CORRECT POSITION. DR JOHNSON NOTIFIED. DR JOHNSON CAME TO BEDSIDE. REMOVED LINE AND PLACED NEW CENTRAL LINE TO RIGHT JUGULAR. STAT XRAY ORDERED. DR JOHNSON REVIEWED RESULTS, LINE IN CORRECT POSITION. ORDERS RECIEVED TO START USING LINE. PLACE DRESSING OVER RIGHT JUGULAR CVL USING STERILE TECHNIQUE. BEGAN INFUSING NS @ 125.
--- NOTE | 2018-12-29 22:40 | NUR ---
PT STATES GENERALIZED PAIN AND PAIN TO RIGHT SIDE OF NECK 11/06 GAVE DILAUDID ORDERED. DENIES OTHER NEEDS. CL IN REACH, WILL CTM
[2018-12-30] VITALS: BP 112/77
--- NOTE | 2018-12-30 01:40 | NUR ---
PT COMPLAINING OF PAIN TO RIGHT SIDE OF NECK 10/06, GAVE PERCOCET ORDERED. WILL CTM
--- NOTE | 2018-12-30 02:40 | NUR ---
PT STATES PAIN IN RIGHT SIDE OF NECK CONTINUES TO BE 7/10. PROVIDED PT WITH ICE PACK TO APPLY TO NECK. WILL GIVE PAIN MED ORDERED, SEE MAR
[2018-12-30 04:00] VITALS: BP 109/92
--- NOTE | 2018-12-30 04:30 | NUR ---
PAIN 7/10 GENERALIZED AND IN RIGHT SIDE OF NECK. GAVE DILAUDID ORDERED. DENIES OTHER NEEDS. CL IN REACH, WILL CTM
[2018-12-30 05:11] LABS: BASOPHILS 0.2 % (0-2); EOSINOPHILS 20.7 % (0-7); HEMATOCRIT 37.7 % (36.0-48.0); IMMATURE GRANULOCYTES 0.2 % (0-5); LYMPHOCYTES 28.4 % (15-50); MCH 29.3 pg (26.0-34.0); MCHC 31.8 g/dL (31.0-37.0); MONOCYTES 5.5 % (2-11); PLATELET COUNT 171 10x3/uL (130-400); RBC 4.09 10x6/uL (4.00-5.40); WBC 5.8 10x3/uL (4.8-10.8)
[2018-12-30 05:26] LABS: MCV 92.2 fL (80.0-100.0)
[2018-12-30 05:37] LABS: ANION GAP 9.9 mmol/L (8-16); CALCIUM 7.9 mg/dL (8.5-10.1); CARBON DIOXIDE 28.5 mmol/L (21.0-32.0); CREATININE - SERUM 0.9 mg/dL (0.6-1.3); MAGNESIUM - SERUM 1.7 mg/dL (1.8-2.4); PHOSPHOROUS 3.8 mg/dL (2.5-4.9); POTASSIUM - SERUM 4.4 mmol/L (3.5-5.1)
--- NOTE | 2018-12-30 07:05 | NUR ---
ALERT AND ORIENTED, SITTING UP IN WC. NO C/O PAIN. NO S/S OF ACUTE DISTRESS NOTED. RIGHT IJ, NS INFUSING @ 125ML/HR. SITE PATENT WITHOUT REDNESS OR SWELLING. ON TELEMETRY SB 57 WITH OCCASIONAL PVC'S. PT DENIES ANY NEEDS AT THIS TIME. CALL LIGHT IN REACH. WILL CONTINUE TO MONITOR.
[2018-12-30 09:13] VITALS: BP 123/80
--- NOTE | 2018-12-30 10:52 | NUR ---
NUTRITION F/U CHART REVIEWED, PT VISIT. PT REPORTS TOLERATING AHA DIET WITH GOOD INTAKE BREAKFAST THIS AM. WILL CONTINUE TO PROVIDE DIET, MONITOR INTAKE. RD FOLLOWING
[2018-12-30 12:22] VITALS: BP 148/48
--- NOTE | 2018-12-30 14:22 | NUR ---
I have reviewed this patient and I concur with the Shift Assessment completed by the Licensed Practical Nurse today this shift.
[2018-12-30 17:07] VITALS: BP 145/77
--- NOTE | 2018-12-30 18:42 | NUR ---
ALERT AND ORIENTED, RESTING IN BED. NO C/O PAIN. NO S/S OF ACUTE DISTRESS NOTED. PT DENIES ANY NEEDS AT THIS TIME. CALL LIGHT IN REACH. WILL CONTINUE TO MONITOR.
--- NOTE | 2018-12-30 19:30 | NUR ---
PT LYING IN BED RESTING WITHOUT DISTRESS, AOX4. RIGHT IJ INFUSING NS @ 125, DRESSING CDI. DENIES NEEDS AT THIS TIME. CL IN REACH, WILL CTM
[2018-12-30 20:00] VITALS: BP 128/57
[2018-12-31] VITALS: BP 142/92
[2018-12-31 04:00] VITALS: BP 104/47
[2018-12-31 05:45] LABS: HEMATOCRIT 33.9 % (36.0-48.0); HEMOGLOBIN 10.9 g/dL (12-16); MCH 29.5 pg (26.0-34.0); MCHC 32.2 g/dL (31.0-37.0); MCV 91.9 fL (80.0-100.0); MEAN PLATELET VOLUME 9.6 fL (7.4-10.4); PLATELET COUNT 146 10x3/uL (130-400); RBC 3.69 10x6/uL (4.00-5.40); RDW 16.8 % (11.5-14.5); WBC 4.4 10x3/uL (4.8-10.8)
[2018-12-31 05:55] LABS: CALC OSMOLALITY 284 mosm/kg (275-300); CALCIUM 7.9 mg/dL (8.5-10.1); CARBON DIOXIDE 31.2 mmol/L (21.0-32.0); CHLORIDE - SERUM 110 mmol/L (98-107); CREATININE - SERUM 0.7 mg/dL (0.6-1.3); GLUCOSE 87 mg/dL (74-106); MAGNESIUM - SERUM 1.8 mg/dL (1.8-2.4); PHOSPHOROUS 3.7 mg/dL (2.5-4.9); POTASSIUM - SERUM 4.1 mmol/L (3.5-5.1); SODIUM 144 mmol/L (136-145); eGFR NON AFRICAN AMERICAN > 90 mL/min (90-120)
[2018-12-31 05:59] LABS: UREA NITROGEN 9 mg/dL (7-18)
[2018-12-31 06:55] LABS: EOSINOPHILS 27 % (0-7); LYMPHOCYTES 33 % (15-50); MONOCYTES 5 % (2-11); NEUTROPHILS 34 % (40-80); PLATELET ESTIMATE NORMAL
--- NOTE | 2018-12-31 07:00 | NUR ---
RESTING IN BED, EYES CLOSED. RESPIRATIONS EVEN AND UNLABORED. AROUSES TO VOICE. IJ TO THE RIGHT, NS INFUSING @ 125ML/HR. PT DENIES ANY NEEDS AT THIS TIME. CALL LIGHT IN REACH. WILL CONTINUE TO MONITOR.
--- NOTE | 2018-12-31 07:05 | NUR ---
ALERT AND ORIENTED X1, ONLY TO SELF. NO C/O PAIN. NO S/S OF ACUTE DISTRESS NOTED. NEW [place]. BEDFAST, ONLY UP WITH PHYSICAL THERAPY. ISIDORO PRESENT. ON 2L O2, NC. LEFT UPPER ARM PICC, SL. SITE PATENT WITHOUT REDNESS OR SWELLING. INFUSAPORT TO RIGHT CHEST, NOT ACCESSED. FSBS Q6. PT DENIES ANY NEEDS AT THIS TIME. CALL LIGHT IN REACH. WILL CONTINUE TO MONITOR.
[2018-12-31 08:26] VITALS: BP 110/61
--- NOTE | 2018-12-31 11:27 | MORECARE ---
CASE MANAGEMENT DISCHARGE SUMMARY PATIENT: CAMELIA WILLAMS UNIT: [id number] ADM DATE: 12/28/18 AGE: 53 : 65 SEX: F ROOM/BED: D.2220 AUTHOR: HERMAN,DOC PHYSICIAN: REFERRING PHYSICIAN: MIKEY VELÁSQUEZ MD DATE OF SERVICE: 12/31/18 Discharge Plan Patient Name: CAMELIA WILLAMS Facility: [facility]:[place] : 1965 Planned Disposition: Home or Self Care Anticipated Discharge Date: Discharge Date: Expected LOS: Initial Reviewer: [email or web address] Initial Review Date: 12/28/2018 Generated: 12/31/18 12:26 pm DCPIA - Discharge Planning Initial Assessment Updated by [id number]: Rocio May on 12/31/18 11:25 am * Is the patient Alert and Oriented? Yes * How many steps to enter\exit or inside your home? * PCP GASTON * Pharmacy [facility] * Preadmission Environment Home with Family * ADLs Independent * Equipment Nebulizer Oxygen Shower Chair Walker * List name and contact numbers for known caregivers / representatives who currently or will assist patient after discharge: NANCY FIELDS (AUNT) [phone] * Verbal permission to speak to the caregivers and representatives has been obtained from the patient. N/A * Community resources currently utilized None * Additional services required to return to the preadmission environment? Yes * Can the patient safely return to the preadmission environment? Yes * Has this patient been hospitalized within the prior 30 days at any hospital? Yes Coverage Notice Reviewer: [email or web address] Ana May Notice Issued Date-Time: 12/31/2018 9:00 Notice Type: IM Discharge Notice Notice Delivered To: Patient Relationship to Patient: Clinical Nursing Instructor Name: Delivery Method: HAND - Hand Delivered Ivett Days: Prior Verbal Notification: Recipient Understood Notice: Yes Recipient Signature: Yes Med Rec Note Co-signed by Attending: Coverage Notice Comment: Reviewer: [email or web address] Ana May Notice Issued Date-Time: 12/31/2018 9:00 Notice Type: Patient Choice Letter Notice Delivered To: Patient Relationship to Patient: Clinical Nursing Instructor Name: Delivery Method: HAND - Hand Delivered Ivett Days: Prior Verbal Notification: Recipient Understood Notice: Yes Recipient Signature: Yes Med Rec Note Co-signed by Attending: Coverage Notice Comment: anupam for [facility] Patient Name: CAMELIA WILLAMS Page [phone] at 1127 All edits/amendments must be made on the electronic document DICTATION DATE: 12/31/181125 TELEPHONE ASSEMBLER: DULCE 12/31/181125 RPT#: [id number] DC DATE: STATUS: ADM IN [facility] [address] [place] [address] END OF REPORT
--- NOTE | 2018-12-31 11:36 | MORECARE ---
CASE MANAGEMENT DISCHARGE SUMMARY PATIENT: CAMELIA WILLAMS UNIT: [id number] ADM DATE: 12/28/18 AGE: 53 : 65 SEX: F ROOM/BED: D.2220 AUTHOR: HERMAN,DOC PHYSICIAN: REFERRING PHYSICIAN: MIKEY VELÁSQUEZ MD DATE OF SERVICE: 12/31/18 Discharge Plan Patient Name: CAMELIA WILLAMS Facility: [facility]:[place] : 1965 Planned Disposition: Home or Self Care Anticipated Discharge Date: Discharge Date: Expected LOS: Initial Reviewer: [email or web address] Initial Review Date: 12/28/2018 Generated: 12/31/18 12:36 pm Comments DCP- Discharge Planning Updated by [id number]: Rocio May on 12/31/18 10:[address] Patient Name: CAMELIA WILLAMS Admission Status: ER Accout number: [id number] Admission Date: 12-28-2018 : 1965 Admission Diagnosis:EHRLICHIOSIS, UNSPECIFIED Attending: MIKEY VELÁSQUEZ Current LOS: 3 Anticipated DC Date: Planned Disposition: Home or Self Care Primary Insurance: MEDICARE A & B Discharge Planning Comments: CM met with patient to complete initial dc planning assessment. CM educated patient on the CM role and verbal consent given by patient to complete assessment. Patient lives at home with her adult son. At discharge patient plans to return home and feels this is a safe discharge. CM discussed availability of home health, rehab services, and medical equipment. Patient has home O2, shower chair, nebulizer and wheelchair. She states that she is independent with her care at home. Her family will be her team cdl driver home. She did not want home health. She stated that she has [facility] from Dr Snow's office. IMM served and explained ANUPAM for DMe signed and placed in chart. Patient denied known discharge needs at this time. CM will continue to follow and will assist as needed with dc plans/needs. Public Health Training Assistant: Rocio May DCPIA - Discharge Planning Initial Assessment Updated by [id number]: Rocio May on 12/31/18 11:25 am * Is the patient Alert and Oriented? Yes * How many steps to enter\exit or inside your home? * PCP ALEK * Pharmacy [facility] * Preadmission Environment Home with Family * ADLs Independent * Equipment Nebulizer Oxygen Shower Chair Walker * List name and contact numbers for known caregivers / representatives who currently or will assist patient after discharge: NANCY FIELDS (AUNT) [phone] * Verbal permission to speak to the caregivers and representatives has been obtained from the patient. N/A * Community resources currently utilized None * Additional services required to return to the preadmission environment? Yes * Can the patient safely return to the preadmission environment? Yes * Has this patient been hospitalized within the prior 30 days at any hospital? Yes Coverage Notice Reviewer: [id number] Ana May Notice Issued Date-Time: 12/31/2018 9:00 Notice Type: IM Discharge Notice Notice Delivered To: Patient Relationship to Patient: Crushing Mill Operator Name: Delivery Method: HAND - Hand Delivered Ivett Days: Prior Verbal Notification: Recipient Understood Notice: Yes Recipient Signature: Yes Med Rec Note Co-signed by Attending: Coverage Notice Comment: Reviewer: [email or web address] Ana May Notice Issued Date-Time: 12/31/2018 9:00 Notice Type: Patient Choice Letter Notice Delivered To: Patient Relationship to Patient: Crushing Mill Operator Name: Delivery Method: HAND - Hand Delivered Ivett Days: Prior Verbal Notification: Recipient Understood Notice: Yes Recipient Signature: Yes Med Rec Note Co-signed by Attending: Coverage Notice Comment: anupam CORDOVA export: 12/31/18 10:27 a Patient Name: CAMELIA WILLAMS Page [phone] at 1136 All edits/amendments must be made on the electronic document DICTATION DATE: 12/31/18 1136 TYPEWRITER RIBBON WINDER: DULCE 12/31/18 1136 RPT#: [id number] DC DATE: STATUS: ADM IN [facility] [address] [place] [address] END OF REPORT
[2018-12-31 13:19] VITALS: BP 144/88
[2018-12-31 17:35] VITALS: BP 133/79
--- NOTE | 2018-12-31 17:38 | NUR ---
I have reviewed this patient and I concur with the Shift Assessment completed by the Licensed Practical Nurse today this shift.
--- NOTE | 2018-12-31 18:54 | NUR ---
ALERT AND ORIENTED, SITTING UP ON THE SIDE OF THE BED. NO C/O PAIN. NO S/S OF ACUTE DISTRESS NOTED. CALL LIGHT IN REACH. PT DENIES ANY NEEDS AT THIS TIME.
--- NOTE | 2018-12-31 19:30 | NUR ---
PT ALERT AND ORIENTED WHEN ENTERING THE ROOM. PATIENT HAS RIGHT INTERNAL JUGULAR. DRESSING INTACT. NS @ 100. BSC IN ROOM. DENIES FURTHER NEEDS AT THIS TIME. CPOC.
[2018-12-31 20:30] VITALS: BP 140/77
[2019-01-01 00:42] VITALS: BP 134/74
--- NOTE | 2019-01-01 02:51 | NUR ---
I have reviewed this patient and I concur with the Shift Assessment completed by the Licensed Practical Nurse today this shift.
[2019-01-01 04:00] VITALS: BP 105/49
[2019-01-01 07:13] LABS: BASOPHILS 0.2 % (0-2); EOSINOPHILS 22.9 % (0-7); HEMATOCRIT 34.8 % (36.0-48.0); HEMOGLOBIN 11.3 g/dL (12-16); IMMATURE GRANULOCYTES 0.2 % (0-5); LYMPHOCYTES 30.3 % (15-50); MCH 29.8 pg (26.0-34.0); MCHC 32.5 g/dL (31.0-37.0); MCV 91.8 fL (80.0-100.0); MEAN PLATELET VOLUME 9.9 fL (7.4-10.4); NEUTROPHILS 40.4 % (40-80); PLATELET COUNT 145 10x3/uL (130-400); RBC 3.79 10x6/uL (4.00-5.40); RDW 16.7 % (11.5-14.5)
[2019-01-01 07:25] LABS: CALC OSMOLALITY 284 mosm/kg (275-300); CALCIUM 8.5 mg/dL (8.5-10.1); CARBON DIOXIDE 32.2 mmol/L (21.0-32.0); CHLORIDE - SERUM 108 mmol/L (98-107); CREATININE - SERUM 0.6 mg/dL (0.6-1.3); GLUCOSE 89 mg/dL (74-106); MAGNESIUM - SERUM 1.7 mg/dL (1.8-2.4); PHOSPHOROUS 3.9 mg/dL (2.5-4.9); SODIUM 144 mmol/L (136-145); UREA NITROGEN 9 mg/dL (7-18); eGFR NON AFRICAN AMERICAN > 90 mL/min (90-120)
[2019-01-01 08:12] VITALS: BP 156/59
[2019-01-01 12:04] VITALS: BP 142/70
--- NOTE | 2019-01-01 12:25 | NUR ---
RECEIVED CALL FROM MONITORS PT IS STATING IN 20'S THEN 30'S ORDERED EKG STAT RELAYED MESSAGE TO Alfonso GOLDEN
[2019-01-01 13:29] LABS: CKMB 0.7 U/L (0.0-3.6); CREATINE KINASE 35 UL (21-215); TROPONIN-I < 0.017 ng/mL (0.000-0.060)
--- NOTE | 2019-01-01 15:09 | NUR ---
PT ASLEEP IN GRANDMOTHER'S ARMS. STARTED PT SCHEDULED ABX, NO S/S OF DISTRESS, CONTINUE WITH PLAN OF CARE
[2019-01-01 16:06] VITALS: BP 128/46; BP 136/79
--- NOTE | 2019-01-01 16:25 | NUR ---
I have reviewed this patient and I concur with the Shift Assessment completed by the Licensed Practical Nurse today this shift.
[2019-01-01 18:40] LABS: CKMB 0.6 U/L (0.0-3.6); CREATINE KINASE 37 UL (21-215)
[2019-01-01 18:48] LABS: TROPONIN-I < 0.017 ng/mL (0.000-0.060)
[2019-01-01 20:16] VITALS: BP 127/66
[2019-01-02 00:23] VITALS: BP 112/57; BP 136/83
[2019-01-02 02:11] LABS: CKMB 0.5 U/L (0.0-3.6); CREATINE KINASE 27 UL (21-215); TROPONIN-I < 0.017 ng/mL (0.000-0.060)
[2019-01-02 05:36] LABS: BASOPHILS 0.2 % (0-2); EOSINOPHILS 26.5 % (0-7); HEMATOCRIT 33.6 % (36.0-48.0); HEMOGLOBIN 10.8 g/dL (12-16); IMMATURE GRANULOCYTES 0.2 % (0-5); LYMPHOCYTES 30.7 % (15-50); MCH 29.1 pg (26.0-34.0); MCHC 32.1 g/dL (31.0-37.0); MCV 90.6 fL (80.0-100.0); MEAN PLATELET VOLUME 10.2 fL (7.4-10.4); MONOCYTES 5.6 % (2-11); NEUTROPHILS 36.8 % (40-80); PLATELET COUNT 147 10x3/uL (130-400); RBC 3.71 10x6/uL (4.00-5.40); RDW 16.3 % (11.5-14.5)
[2019-01-02 06:02] LABS: CALC OSMOLALITY 282 mosm/kg (275-300); CALCIUM 8.3 mg/dL (8.5-10.1); CARBON DIOXIDE 32.7 mmol/L (21.0-32.0); CHLORIDE - SERUM 107 mmol/L (98-107); CKMB 0.5 U/L (0.0-3.6); CREATINE KINASE 25 UL (21-215); CREATININE - SERUM 0.6 mg/dL (0.6-1.3); GLUCOSE 91 mg/dL (74-106); MAGNESIUM - SERUM 1.5 mg/dL (1.8-2.4); PHOSPHOROUS 3.3 mg/dL (2.5-4.9); POTASSIUM - SERUM 3.9 mmol/L (3.5-5.1); SODIUM 143 mmol/L (136-145); TROPONIN-I < 0.017 ng/mL (0.000-0.060); UREA NITROGEN 8 mg/dL (7-18); eGFR NON AFRICAN AMERICAN > 90 mL/min (90-120)
[2019-01-02 06:09] VITALS: BP 145/59
--- NOTE | 2019-01-02 07:54 | NUR ---
PT ASLEEP IN BED EASILY AWAKEDNED FOR MEDS, NO S/S OF DISTRESS, NO NEEDS VOICED, ASSUME PT CARE
--- NOTE | 2019-01-02 09:36 | NUR ---
I have reviewed this patient and I concur with the Shift Assessment completed by the Licensed Practical Nurse today this shift.
--- NOTE | 2019-01-02 12:13 | CN ---
PATIENT NAME:CAMELIA WILLAMS MEDICAL RECORD: [id number] : [birth year] LOCATION:D.MS [place]20 ADMIT DATE: 12/28/18 ACCOUNT: [id number] CONSULTING PHYSICIAN: LOIS JIMENEZ MD REFERRING PHYSICIAN: MIKEY VELÁSQUEZ MD DATE OF CONSULTATION: 01/02/2019 HISTORY OF PRESENT ILLNESS: A 53-year-old female with a history of morbid obesity, hypertension, cerebrovascular disease status post CVA, and obstructive pulmonary disease was admitted earlier in November with pancytopenia, admitted this admission with UTI possible urosepsis. She had emma and currently on her admission was on Diflucan, had an episode of nausea accompanied by bradycardia as well as marked diaphoresis and dizziness. I am not sure if this is a vagal response. She has had intermittent bradycardia in the past. Previously has seen Dr. Barajas. Again, this may have been basically made at the time of the episode described. She has intermittent dizziness. This is not classically orthostatic. We are asked to see her concerning her cardiovascular status. PAST MEDICAL HISTORY: Includes: 1. History of morbid obesity. 2. Obstructive pulmonary disease. 3. Gastroesophageal reflux disease. 4. CVA in the past. ALLERGIES: INCLUDE ASPIRIN, PREDNISONE, ZOFRAN, KEFLEX, LEVAQUIN. MEDICATIONS: Include trazodone 300 mg p.o. q.h.s., Diflucan 200 mg p.o. daily, doxycycline 100 mg p.o. daily, albuterol 2 puffs q.6 hours p.r.n. SOCIAL HISTORY: Smokes about a pack every day, nondrinker, does have some problems with ADLs secondary to general debility. REVIEW OF SYSTEMS: The patient reports easy bruising but reports no swollen glands. The patient reports no fever, no night sweats, no significant weight gain, no significant weight loss. No significant exercise tolerance. The patient reports no dry eyes, no irritation, no vision change. Patient reports no difficulty hearing and no ear pain. Patient reports no frequent nose bleeds or nose and sinus problems. Patient reports on arm pain on exertion. No shortness of breath while lying down. No history of heart murmur. Patient reports no cough, no wheezing or coughing up blood. Patient reports no abdominal pain, no vomiting. Normal appetite. No diarrhea and not vomiting blood. No nausea and no constipation. Patient reports no incontinence. No difficulty urinating. No hematuria. No increased frequency. Patient reports no muscle aches. No weakness, no arthralgias, no back pain. No swelling of the extremities. Patient reports no abnormal mole, no jaundice, no rashes. Reports no loss of consciousness. No weakness and no numbness. No seizures, dizziness, or headaches. The patient reports no depression, no sleep disturbance, feeling safe in a relationship and no alcohol abuse. Patient reports on fatigue. Reports no runny nose or sinus pressure. No itching, no hives, and no frequent sneezing. PHYSICAL EXAMINATION: GENERAL: Pleasant female in no acute distress, appears stated age. VITAL SIGNS: Blood pressure 145/59, pulse 60 and regular. CONSULT REPORT [id number] CAMELIA WILLAMS: Normocephalic, atraumatic. NECK: No JVD or bruit. HEART: Distant. A II/ systolic ejection murmur. LUNGS: Good air excursion. ABDOMEN: Soft, nontender. EXTREMITIES: Pulses 2+. There is 1+ edema. NEUROLOGIC: Grossly intact. IMPRESSION: Episodic bradycardia. Difficult to tell if this is vagal mediated at this point. Mechanism underlying at that time is normal sinus rhythm with normal OK and normal QRS duration. No evidence of AV conduction defects. Certainly tick-borne illnesses have shown intermittent AV block. This is not documented, might benefit from event monitoring. We will arrange this as an outpatient if she is discharged. No contraindication to discharge from my standpoint. TRANSINT:[id number] Voice Confirmation ID: [id number] DOCUMENT ID: [id number] LOIS JIMENEZ MD at 1213 CC: [id number] DICTATION DATE: 01/02/19 0844 ACCOUNTING ADMINISTRATIVE ASSISTANT: 01/02/19 1036 ADM IN [address] [place] [address]
[2019-01-02] MEDS ORDERED: ZYVOX600 MG PO (13:14)
[2019-01-02] MEDS ORDERED: FLORAJEN3 CAPS460 MG PO (13:15)
[2019-01-02] MEDS ORDERED: MACROBID100 MG PO (13:15)
[2019-01-02] MEDS ORDERED: VIBRAMYCIN 100100 MG PO (13:15)
[2019-01-02] MEDS ORDERED: Nicoderm [PBKC] TRANSDERM (13:16)
[2019-01-02 13:33] VITALS: BP 139/77
--- NOTE | 2019-01-02 14:23 | NUR ---
SPOKE WITH PT RE REFERRAL TO TOBACCO QUITLINE. SHE DECLINED, STATES " I DON'T SMOKE THAT MUCH. I HAVEN'T EVEN USED A PATCH SINCE I'VE BEEN IN HERE".
--- NOTE | 2019-01-02 14:28 | MORECARE ---
CASE MANAGEMENT DISCHARGE SUMMARY PATIENT: CAMELIA WILLAMS UNIT: [id number] ADM DATE: 12/28/18 AGE: 53 : 65 SEX: F ROOM/BED: D.2220 AUTHOR: HERMAN,DOC PHYSICIAN: REFERRING PHYSICIAN: MIKEY VELÁSQUEZ MD DATE OF SERVICE: 01/02/19 Discharge Plan Patient Name: CAMELIA WILLAMS Facility: [facility]:[place] : 1965 Planned Disposition: Home or Self Care Anticipated Discharge Date: 01/02/19 Discharge Date: Expected LOS: 5 Initial Reviewer: [email or web address] Initial Review Date: 12/28/2018 Generated: 01/02/19 3:28 pm Comments DCP- Discharge Planning Updated by [email or web address]: Brooke Li on 01/02/19 1:[address] PATIENT FOR DISCHARGE TO HOME TODAY. CM CONSULT ORDER RECEIVED TO ASSESS FOR NEEDS. CM ASSESSMENT WAS COMPLETED ON 12/31/18. CM VISITED DISCUSSED DISCHARGE AND POTRENTIAL NEEDS. THE PATIENT DENIES ANY ADDITIONAL NEEDS. CM EXPLAINED DISCHARGE IMM. PATIENT READ IMM. HAD NO QUESTIONS OR CONCERNS. SIGNATURE OBTAINED ON ORIGINAL COPY FOR THE PATIENT AND SIGNATURE OBTAINED ON THE ORIGINAL COPY FOR THE HARD COVER CHART. PATIENT HAS TRANSPORTATION TO HOME. NO ADDITIONAL NEEDS. DCP- Discharge Planning Updated by [id number]: Rocio May on 12/31/18 10:[address] Patient Name: CAMELIA WILLAMS Admission Status: ER Accout number: [id number] Admission Date: 12-28-2018 : 1965 Admission Diagnosis:EHRLICHIOSIS, UNSPECIFIED Attending: MIKEY VELÁSQUEZ Current LOS: 3 Anticipated DC Date: Planned Disposition: Home or Self Care Primary Insurance: MEDICARE A & B Discharge Planning Comments: CM met with patient to complete initial dc planning assessment. CM educated patient on the CM role and verbal consent given by patient to complete assessment. Patient lives at home with her adult son. At discharge patient plans to return home and feels this is a safe discharge. CM discussed availability of home health, rehab services, and medical equipment. Patient has home O2, shower chair, nebulizer and wheelchair. She states that she is independent with her care at home. 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 She did not want home health. She stated that she has House Calls from Dr Snow's office. IMM served and explained ANUPAM for DMe signed and placed in chart. Patient denied known discharge needs at this time. CM will continue to follow and will assist as needed with dc plans/needs. Stitch Bonding Machine Tender Helper: Rocio May DCPIA - Discharge Planning Initial Assessment Updated by [email or web address]: Rocio May on 12/31/18 11:25 am * Is the patient Alert and Oriented? Yes * How many steps to enter\exit or inside your home? * PCP ALEK * Pharmacy [facility] * Preadmission Environment Home with Family * ADLs Independent * Equipment Nebulizer Oxygen Shower Chair Walker * List name and contact numbers for known caregivers / representatives who currently or will assist patient after discharge: NANCY FIELDS (AUNT) [phone] * Verbal permission to speak to the caregivers and representatives has been obtained from the patient. N/A * Community resources currently utilized None * Additional services required to return to the preadmission environment? Yes * Can the patient safely return to the preadmission environment? Yes * Has this patient been hospitalized within the prior 30 days at any hospital? Yes Coverage Notice Reviewer: [email or web address] Ana May Notice Issued Date-Time: 12/31/2018 9:00 Notice Type: IM Discharge Notice Notice Delivered To: Patient Relationship to Patient: Hand Crocheter Name: Delivery Method: HAND - Hand Delivered Ivett Days: Prior Verbal Notification: Recipient Understood Notice: Yes Recipient Signature: Yes Med Rec Note Co-signed by Attending: Coverage Notice Comment: Reviewer: [email or web address] Ana May Notice Issued Date-Time: 12/31/2018 9:00 Notice Type: Patient Choice Letter Notice Delivered To: Patient Relationship to Patient: Hand Crocheter Name: Delivery Method: HAND - Hand Delivered Ivett Days: Prior Verbal Notification: Recipient Understood Notice: Yes Recipient Signature: Yes Med Rec Note Co-signed by Attending: Coverage Notice Comment: anupam for [facility] Last DP export: 12/31/18 10:36 a Patient Name: CAMELIA WILLAMS Page [phone] at 1428 All edits/amendments must be made on the electronic document DICTATION DATE: 01/02/191 TEST ENGINEERING MANAGER: DULCE 01/02/19 1428 RPT#: [id number] DC DATE: STATUS: ADM IN [facility] [address] [place] [address] END OF REPORT
--- NOTE | 2019-01-02 15:50 | NUR ---
IJ D/C WITH TIP INTACT WITHOUT COMPLICATIONS. APPROXIMATELY 7 CM LONG. TOLERATED WITHOUT C/O .
--- NOTE | 2019-01-04 15:41 | OP ---
PATIENT NAME: CAMELIA WILLAMS MEDICAL RECORD: [id number] :65 LOCATION:D.MS [address]anner2220 ADMISSION DATE:12/28/18 SURGEON: MILTON JOHNSON MD DATE OF OPERATION: 12/29/2018 PREOPERATIVE DIAGNOSIS: Malpositioned central venous catheter. POSTOPERATIVE DIAGNOSIS: Malpositioned central venous catheter. PROCEDURE: Reinsertion of a central venous line. SURGEON: Milton Johnson MD WIRE BRUSH MAKER: None. BLOOD LOSS: Minimal. ANESTHESIA: Local. OPERATIVE COURSE: After reviewing the chest x-ray, it appears that the internal jugular central venous catheter actually travels retrograde out through the right subclavian vein. A local anesthetic was used to infiltrate the skin and subcutaneous tissue of the right neck after sterile prep and drape. I cut the sutures. I tried to reposition the catheter without using a guidewire. This was not fruitful. I placed the guidewire. I removed the central venous catheter. I opened up a new kit. I advanced an Angiocath over the wire. I then pulled the wire back completely. I then advanced the wire through the Angiocath. It seemed to advance pretty easily. I then advanced the new 16-cm triple lumen central venous catheter over the wire. All lumens flushed easily and aspirated dark, nonpulsatile blood. The central venous line was sutured in place times 3. A sterile dressing was applied. A subsequent chest x-ray revealed adequate placement of the central venous line. Central venous line is okay to use. TRANSINT:[id number] Voice Confirmation ID: [id number] DOCUMENT ID: [id number] MILTON JOHNSON MD at 1541 CC: [id number] DICTATION DATE: 12/29/182200 CRANKSHAFT GRINDER: 12/30/18 0656 DIS IN 01/02/19 [facility] [address] [place] [address]
--- NOTE | 2019-01-04 15:41 | OP ---
PATIENT NAME: CAMELIA WILLAMS MEDICAL RECORD: [id number] :65 LOCATION:D.MS Tanner2220 ADMISSION DATE:12/28/18 SURGEON: MILTON JOHNSON MD DATE OF OPERATION: 12/29/2018 PREOPERATIVE DIAGNOSES: 1. Tick-borne illness in need of IV access for IV antibiotics. 2. No peripheral IV access available. POSTOPERATIVE DIAGNOSES: 1. Tick-borne illness in need of IV access for IV antibiotics. 2. No peripheral IV access available. PROCEDURE: Insertion of right internal jugular triple lumen central venous catheter. SURGEON: Milton Johnson MD PERSONAL COMPUTER SPECIALIST: None. BLOOD LOSS: Minimal. ANESTHESIA: Local. COMPLICATIONS: None. The risks, possible complications, and alternatives to the procedure were explained to the patient. She elects to proceed. The discussion specifically included, but was not limited to, bleeding requiring emergency reoperation and infection. The entire procedure was performed in the presence of a female nurse. OPERATIVE COURSE: The patient was placed in the Trendelenburg position. The right neck was sterilely prepped and draped. A local anesthetic was used to infiltrate the skin and subcutaneous tissue at the base of the right neck. The right internal jugular vein was percutaneously accessed in an antegrade fashion. A guidewire passed easily. A small skin jessie was accomplished. A vessel dilator was used to dilate a subcutaneous tract. A 16-cm triple lumen central venous catheter was inserted to the hub. It was sutured in place times 3. All lumens flushed easily and aspirated dark, nonpulsatile blood. A stat portable chest x-ray is pending. TRANSINT:[id number] Voice Confirmation ID: [id number] DOCUMENT ID: [id number] MILTON JOHNSON MD at 1541 CC: [id number] DICTATION DATE: 12/29/182057 PLATFORM LOADER: 12/30/18 0432 DIS IN 01/02/19 [place] [id number] [place] [id number]
--- NOTE | 2019-01-06 08:24 | MORECARE ---
CASE MANAGEMENT DISCHARGE SUMMARY PATIENT: CAMELIA WILLAMS UNIT: [id number] ADM DATE: 12/28/18 AGE: 53 : 65 SEX: F ROOM/BED: D.2220 AUTHOR: HERMAN,DOC PHYSICIAN: REFERRING PHYSICIAN: MIKEY VELÁSQUEZ MD DATE OF SERVICE: 01/06/19 Discharge Plan Patient Name: CAMELIA WILLAMS Facility: [facility]:[place] : 1965 Planned Disposition: Home or Self Care Anticipated Discharge Date: 01/02/19 Discharge Date: 01/02/2019 Expected LOS: 5 Initial Reviewer: [email or web address] Initial Review Date: 12/28/2018 Generated: 01/06/19 9:24 am Comments DCP- Discharge Planning Updated by [email or web address]: Brooke Li on 01/02/19 1:[address] PATIENT FOR DISCHARGE TO HOME TODAY. CM CONSULT ORDER RECEIVED TO ASSESS FOR NEEDS. CM ASSESSMENT WAS COMPLETED ON 12/31/18. CM VISITED DISCUSSED DISCHARGE AND POTRENTIAL NEEDS. THE PATIENT DENIES ANY ADDITIONAL NEEDS. CM EXPLAINED DISCHARGE IMM. PATIENT READ IMM. HAD NO QUESTIONS OR CONCERNS. SIGNATURE OBTAINED ON ORIGINAL COPY FOR THE PATIENT AND SIGNATURE OBTAINED ON THE ORIGINAL COPY FOR THE HARD COVER CHART. PATIENT HAS TRANSPORTATION TO HOME. NO ADDITIONAL NEEDS. DCP- Discharge Planning Updated by [email or web address]: Rocio May on 12/31/18 10:[address] Patient Name: CAMLEIA WILLAMS Admission Status: ER Accout number: [id number] Admission Date: 12-28-2018 : 1965 Admission Diagnosis:EHRLICHIOSIS, UNSPECIFIED Attending: MIKEY VELÁSQUEZ Current LOS: 3 Anticipated DC Date: Planned Disposition: Home or Self Care Primary Insurance: MEDICARE A & B Discharge Planning Comments: CM met with patient to complete initial dc planning assessment. CM educated patient on the CM role and verbal consent given by patient to complete assessment. Patient lives at home with her adult son. At discharge patient plans to return home and feels this is a safe discharge. CM discussed availability of home health, rehab services, and medical equipment. Patient has home O2, shower chair, nebulizer and wheelchair. She states that she is independent with her care at home. 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 She did not want home health. She stated that she has House Calls from Dr Snow's office. IMM served and explained ANUPAM for DMe signed and placed in chart. Patient denied known discharge needs at this time. CM will continue to follow and will assist as needed with dc plans/needs. Rn Psychiatric: Rocio May DCPIA - Discharge Planning Initial Assessment Updated by [email or web address]: Rocio May on 12/31/18 11:25 am * Is the patient Alert and Oriented? Yes * How many steps to enter\exit or inside your home? * PCP ALEK * Pharmacy [facility] * Preadmission Environment Home with Family * ADLs Independent * Equipment Nebulizer Oxygen Shower Chair Walker * List name and contact numbers for known caregivers / representatives who currently or will assist patient after discharge: NANCY FIELDS (AUNT) [phone] * Verbal permission to speak to the caregivers and representatives has been obtained from the patient. N/A * Community resources currently utilized None * Additional services required to return to the preadmission environment? Yes * Can the patient safely return to the preadmission environment? Yes * Has this patient been hospitalized within the prior 30 days at any hospital? Yes Coverage Notice Reviewer: [email or web address] - Rocio May Notice Issued Date-Time: 12/31/2018 9:00 Notice Type: IM Discharge Notice Notice Delivered To: Patient Relationship to Patient: Buffing Wheel Former Machine Name: Delivery Method: HAND - Hand Delivered Ivett Days: Prior Verbal Notification: Recipient Understood Notice: Yes Recipient Signature: Yes Med Rec Note Co-signed by Attending: Coverage Notice Comment: Reviewer: [id number] - Rocio May Notice Issued Date-Time: 12/31/2018 9:00 Notice Type: Patient Choice Letter Notice Delivered To: Patient Relationship to Patient: Buffing Wheel Former Machine Name: Delivery Method: HAND - Hand Delivered Ivett Days: Prior Verbal Notification: Recipient Understood Notice: Yes Recipient Signature: Yes Med Rec Note Co-signed by Attending: Coverage Notice Comment: anupam for [facility] Reviewer: [id number] - Brooke Li Notice Issued Date-Time: 01/02/2019 14:27 Notice Type: IM Discharge Notice Notice Delivered To: Patient Relationship to Patient: Self Buffing Wheel Former Machine Name: Delivery Method: HAND - Hand Delivered Ivett Days: Prior Verbal Notification: Recipient Understood Notice: Yes Recipient Signature: Yes Med Rec Note Co-signed by Attending: Coverage Notice Comment: DISCHARGE IMM SERVED. Last DP export: 01/02/19 1:28 p Patient Name: CAMELIA WILLAMS Page [id number] at 0824 All edits/amendments must be made on the electronic document DICTATION DATE: 01/06/19823 DIGITAL MARKETING ASSISTANT: DULCE 01/06/19823 RPT#: [id number] DC DATE:01/02/19 STATUS: DIS IN [facility] [address] [place] [address] END OF REPORT
== END 2019-01-02 15:57 | disposition home or self-care (01) | DRG 868 ==
LOC: D.ER 16:39 → D.MS 12-28 00:02
PROVIDERS: Family Medicine; ADMIT Family Medicine; ATTEND Family Medicine
PROC: 05HM33Z Insertion of Infusion Device into Right Internal Jugular Vein, Percutaneous Approach (ICD-10-PCS; principal; 2018-12-29)
PROC: 05PY33Z Removal of Infusion Device from Upper Vein, Percutaneous Approach (ICD-10-PCS; 2018-12-29)
PROC: 05HM33Z Insertion of Infusion Device into Right Internal Jugular Vein, Percutaneous Approach (ICD-10-PCS; 2018-12-29)
DX: A77.40 Ehrlichiosis, unspecified (principal); N39.0 Urinary tract infection, site not specified; F17.203 Nicotine dependence unspecified, with withdrawal; Z68.42 Body mass index [BMI] 45.0-49.9, adult; E87.6 Hypokalemia; J44.9 Chronic obstructive pulmonary disease, unspecified; E66.01 Morbid (severe) obesity due to excess calories; Z86.73 Personal history of transient ischemic attack (TIA), and cerebral infarction without residual deficits; F32.9 Major depressive disorder, single episode, unspecified; K21.9 Gastro-esophageal reflux disease without esophagitis; G25.81 Restless legs syndrome; B96.20 Unspecified Escherichia coli [E. coli] as the cause of diseases classified elsewhere; B95.7 Other staphylococcus as the cause of diseases classified elsewhere; Z16.21 Resistance to vancomycin; I50.9 Heart failure, unspecified; R00.1 Bradycardia, unspecified

== ENCOUNTER → 2019-06-08 09:19 | Outpatient (CLI) | payer MEDICARE ==
[2018-12-29 20:47] VITALS: BMI 46.4
[~2019-06-08 09:19] MED LIST changes: +FLORAJEN3 CAPS460 MG PO; +Nicoderm [PBKC] TRANSDERM; +ZYVOX600 MG PO
== END | disposition home or self-care (01) ==
LOC: D.CT 06-07 10:30
PROVIDERS: ATTEND Family Medicine
DX: R22.1 Localized swelling, mass and lump, neck (principal)